=== PATIENT | female | born 1985 | race Caucasian/White ===

== ENCOUNTER 2020-09-08 09:40 | Outpatient (REF) | payer OTHER, SELFPAY ==
[2020-09-08 14:00] LABS: CT PCR NOT DETECTED (Not Detect.); NG PCR NOT DETECTED (Not Detect.)
[2020-09-09 09:06] LABS: BV Int Neg Control Negative (Negative); BV Int Pos Control Positive (Positive)
[2020-09-11 03:21] LABS: HPV mRNA E6/E7 rflx Not Detected (Not Detected)
== END 2020-09-08 09:41 | disposition home or self-care (01) ==
LOC: HO.LAB 09:40
PROVIDERS: Visit Provider Advanced Practice Midwife
DX: Z01.419 Encounter for gynecological examination (general) (routine) without abnormal findings (principal); K64.9 Unspecified hemorrhoids; Z87.891 Personal history of nicotine dependence; Z20.2 Contact with and (suspected) exposure to infections with a predominantly sexual mode of transmission
CPT/HCPCS: 36415; 87480; 87491; 87510; 87591; 87624; 87660; 88142

== ENCOUNTER 2020-09-15 13:31 | Emergency (ER) | payer OTHER, SELFPAY ==
--- NOTE | ~2020-09-15 | XR_ITS ---
EXAMINATION: XR CHEST CLINICAL INFORMATION: Pleuritic chest pain. COMPARISON: Chest 05/19/2019 TECHNIQUE: Frontal view of the chest was obtained. FINDINGS: No significant abnormality is noted involving the heart, lungs, mediastinum, bony thorax or soft tissues. XR/XR chest 1V IMPRESSION: Unremarkable chest exam
[2020-09-15 14:19] VITALS: BP 121/79; PULSE 100; RESP 18; TEMP 37.9; O2SAT 100; BMI 25.0
--- NOTE | 2020-09-15 14:27 | ECG_ITS ---
Test Reason : CHEST PRESSURE Blood Pressure : / mmHG Vent. Rate : 098 BPM Atrial Rate : 098 BPM P-R Int : 132 ms QRS Dur : 082 ms QT Int : 342 ms P-R-T Axes : 074 027 047 degrees QTc Int : 436 ms Normal sinus rhythm Possible Left atrial enlargement Nonspecific T wave abnormality Abnormal ECG When compared to the previous EKG of Nonspecific T wave changes present Referred By: Roman Black Electronically Signed By:Juan Francisco Ferraro
--- NOTE | 2020-09-15 15:13 | ED_ITS ---
HPI - General Adult General Chief complaint: General Medical Stated complaint: HEAVY CHEST Time Seen by Provider: 09/15/20 14:19 Source: patient and police Mode of arrival: ambulatory History of Present Illness HPI narrative: Patient presents to the ED for cough, chills, bodyaches, headache and chest pain on inspiration. Patient is unaware of any covid exposure. Related Data Previous Rx's Medication Instructions Recorded vitamin with calcium 1 tab PO DAILY #30 tab 09/08/20 no.72-iron 27 mg-folic acid 1 mg tablet Allergies Allergy/AdvReac Type Severity Reaction Status Date / Time No Known Allergies Allergy Unknown NONE Verified 09/08/20 10:00 Review of Systems Review of Systems: Yes all other systems are reviewed and are negative Constitutional: Constitutional: Reports as per HPI, Reports no additional constitutional complaints, Reports body ache(s), Reports chills, Reports fatigue and Reports headache(s) Eyes: Eyes: Reports as per HPI and Reports no additional eye complaints ENT: Reports system reviewed and no additional complaints, except as documented and Reports headache(s) Cardiovascular: Cardiovascular: Reports as per HPI, Reports no additional cardiovascular complaints, Reports chest pain and Reports dyspnea Respiratory: Respiratory: Reports as per HPI, Reports no additional respiratory complaints, Reports pain on inspiration and Reports dyspnea Gastrointestinal: Gastrointestinal: Reports as per HPI and Reports no a dditional gastrointestinal complaints Musculoskeletal: Musculoskeletal: Reports no additional musculoskeletal complaints and Reports as per HPI Neurologic: Reports system reviewed and no additional complaints, except as documented, Reports as per HPI and Reports headache(s) Psychiatric: Psychiatric: Reports no additional psychiatric complaints and Reports as per HPI Endocrine: Endocrine: Reports fatigue PMFSH Past Medical History Surgical History Hx of section Family History Family History Maternal Grandmother Ovarian cancer Social History Social History Alcohol intake: never Smoking Status: Former smoker Substance Use Type: Marijuana Advance Directives: No Advance Directives Information Provided: No Physical Exam Vital Signs: Vital Signs: Last Vital Signs Temp 100.3 F 09/15/20 14:19 Pulse 100 09/15/20 14:19 Resp 18 09/15/20 14:19 BP 121/79 03/31/21 14:19 Pulse Ox 100 09/15/20 14:19 Body Mass Index 25.0 Const: General: cooperative, healthy appearing, comfortable, well developed, alert, awake and Physically active Orientation/consciousness: patient oriented x3 HENMT: Head: Yes normal to inspection, Yes No palpable skull fracture present, Yes normocephalic and No atraumatic Eyes: General: appearance normal, both eyes and all related structures Neck: Neck: Yes normal visual inspection, Yes full ROM, Yes no lymphadenopathy, Yes no meningeal signs, Yes trachea midline, Yes supple and No tender Chest: Chest palpation & inspection: normal inspection of the chest and normal palpation of entire chest wall Resp: Effort & Inspection: normal respiratory effort and able to speak in complete sentences Auscultation: clear to auscultation bilaterally Cardio: Jugular venous distension: no JVD Heart sounds: S1 normal heart sound present and S2 normal heart sound present GI: Inspection: Yes normal to inspection and No abdominal wall ecchymosis Palpation (GI): Soft to palpation, not firm, nontender, no guarding and not rigid : General: No CVA tenderness and Yes no CVA tenderness Back/Spine/Pelvis: Back: no CVA tenderness, No CVA tenderness and No back tenderness Skin: General skin exam: no rashes or lesions noted and elasticity normal Neuro: General: patient oriented x3, no meningeal signs and CN's II-XI intact bilaterally Cranial nerves: Yes CN's II-XII intact bilaterally Extrem: Other: Lower extremities negative for any swelling, pitting edema, redness or calf tenderness. Course Course Course Narrative: Patient will have cardiac evaluation and covid workup. Reevaluation(s) Reevaluation #1: Patient's EKG negative for STEMI. Troponi negative. Chest xray negative for pneumonia? Patient is sleeping comfortably in the bed. D-dimer negative. Perc socre 1. Awaiting for covid results. ViraL syndrome is Diagnosis. Case signed out [employer] [facility] to follow up covid swab Medical Decision Making [facility] Narrative Medical decision making narrative: Viral syndrome. Lab Data Result diagrams: 09/15/20 16:50 09/15/20 16:50 Labs: Lab Results 09/15/20 09/15/20 09/15/20 Range/Units 16:50 16:50 16:50 WBC 3.3 L (4.8-10.8) X10*3/uL RBC 3.82 L (4.20-5.50) X10*6/uL Hgb 12.4 (12.0-16.0) g/dl Hct 36.6 L (37-47) % MCV 95.8 (80-98) fL MCH 32.5 (27.0-33.0) pg MCHC 33.9 (31.0-35.0) g/dl RDW 12.2 (11.0-16.0) % Plt Count 305 (160-400) X10*3/uL MPV 9.0 L (9.4-12.3) fL Immature Gran % (Auto) 0.3 (0.0-0.4) % Neut % (Auto) 49.0 (45-73) % Lymph % (Auto) 33.4 (20-40) % [place] % (Auto) 16.7 H (2-11) % Eos % (Auto) 0.3 (0-4) % Baso % (Auto) 0.3 (0-2) % Lymph # (Auto) 1.1 L (1.2-4.9) X10*3/uL [place] # (Auto) 0.6 (0.1-1.2) X10*3/uL Eos # (Auto) 0.0 (0.0-0.4) X10*3/uL Baso # (Auto) 0.0 (0.0-0.2) X10*3/uL Abs Immat Gran (auto) 0.01 (0.00-0.03) X10*3/uL Absolute Neuts (auto) 1.6 L (2.0-8.3) X10*3/uL Absolute Nucleated RBC 0.000 (0.0-0.012) X10*3/uL Nucleated RBC % (auto) 0.0 (0.0-0.2) /100WBC PT 12.9 (10.8-13.0) SEC INR 1.1 (0.9-1.1) APTT 30.2 (24.1-38.0) SEC D-Dimer < 200 NG/ML Sodium 137 (135-145) mmol/L Potassium 3.5 (3.3-5.1) mmol/L Chloride 101 (96-108) mmol/L Carbon Dioxide 23 (22-29) mmol/L Anion Gap 17 (12-20) BUN 12 (9-16) mg/dL Creatinine 0.73 (0.5-1.4) mg/dL Estim Creat Clear Calc 94.1 Estimated GFR > 60 Random Glucose 80 (60-115) mg/dL Calcium 8.8 (8.4-10.2) mg/dL Total Bilirubin 0.3 (0.0-1.0) mg/dL AST 25 (5-31) U/L ALT 23 (0-31) U/L Alkaline Phosphatase 64 (39-117) U/L Troponin I High Sens (<3.5-17.0) ng/L Total Protein 7.5 (6.5-8.0) g/dL Albumin 4.2 (3.5-5.0) g/dL Beta HCG, Quant mIU/mL 09/15/20 09/15/20 Range/Units 16:50 16:50 WBC (4.8-10.8) X10*3/uL RBC (4.20-5.50) X10*6/uL Hgb (12.0-16.0) g/dl Hct (37-47) % MCV (80-98) fL MCH (27.0-33.0) pg MCHC (31.0-35.0) g/dl RDW (11.0-16.0) % Plt Count (160-400) X10*3/uL MPV (9.4-12.3) fL Immature Gran % (Auto) (0.0-0.4) % Neut % (Auto) (45-73) % Lymph % (Auto) (20-40) % [place] % (Auto) (2-11) % Eos % (Auto) (0-4) % Baso % (Auto) (0-2) % Lymph # (Auto) (1.2-4.9) X10*3/uL [place] # (Auto) (0.1-1.2) X10*3/uL Eos # (Auto) (0.0-0.4) X10*3/uL Baso # (Auto) (0.0-0.2) X10*3/uL Abs Immat Gran (auto) (0.00-0.03) X10*3/uL Absolute Neuts (auto) (2.0-8.3) X10*3/uL Absolute Nucleated RBC (0.0-0.012) X10*3/uL Nucleated RBC % (auto) (0.0-0.2) /100WBC PT (10.8-13.0) SEC INR (0.9-1.1) APTT (24.1-38.0) SEC D-Dimer NG/ML Sodium (135-145) mmol/L Potassium (3.3-5.1) mmol/L Chloride (96-108) mmol/L Carbon Dioxide (22-29) mmol/L Anion Gap (12-20) BUN (9-16) mg/dL Creatinine (0.5-1.4) mg/dL Estim Creat Clear Calc Estimated GFR Random Glucose (60-115) mg/dL Calcium (8.4-10.2) mg/dL Total Bilirubin (0.0-1.0) mg/dL AST (5-31) U/L ALT (0-31) U/L Alkaline Phosphatase (39-117) U/L Troponin I High Sens 3.5 (<3.5-17.0) ng/L Total Protein (6.5-8.0) g/dL Albumin (3.5-5.0) g/dL Beta HCG, Quant < 2 mIU/mL ECG Data Interpretation: Normal Sinus rhythm. Vent rate 98. CA interval 132. QRS 82. QTC 436. Discharge Plan Discharge Prescriptions: No Action Vitamin Plus Low Iron 27 mg iron- 1 mg tablet 1 tab PO DAILY Qty: 30 RF: 11
[2020-09-15] MEDS: 0.9 % Sodium Chloride 1,000 ML 999 ML IV (17:06)
[2020-09-15] MEDS: Acetaminophen 325 MG TABLET 650 MG PO (17:06)
[2020-09-15 17:07] LABS: MANUAL DIFF FLAG NO
[2020-09-15 17:10] LABS: Basophils Percent Auto 0.3 % (0-2); Eosinophils Percent Auto 0.3 % (0-4); Hematocrit 36.6 % (37-47); Hemoglobin 12.4 g/dl (12.0-16.0); Imm Gran Abs Auto 0.01 X10*3/uL (0.00-0.03); Imm Gran Pct Auto 0.3 % (0.0-0.4); Lymphocytes Absolute Auto 1.1 X10*3/uL (1.2-4.9); Lymphocytes Percent Auto 33.4 % (20-40); Mean Corpuscular HGB Conc 33.9 g/dl (31.0-35.0); Mean Corpuscular Hemoglobin 32.5 pg (27.0-33.0); Mean Corpuscular Volume 95.8 fL (80-98); Monocytes Absolute Auto 0.6 X10*3/uL (0.1-1.2); Monocytes Percent Auto 16.7 % (2-11); Neutrophils Absolute Auto 1.6 X10*3/uL (2.0-8.3); Platelet Count 305 X10*3/uL (160-400); Red Blood Count 3.82 X10*6/uL (4.20-5.50); Red Cell Distribution Width 12.2 % (11.0-16.0); White Blood Count 3.3 X10*3/uL (4.8-10.8)
[2020-09-15 17:20] LABS: INTERNATIONAL NORM RATIO 1.1 (0.9-1.1); Prothrombin Time 12.9 SEC (10.8-13.0)
[2020-09-15 17:22] LABS: Partial Thromboplastin Time 30.2 SEC (24.1-38.0)
[2020-09-15 17:27] LABS: D Dimer < 200 NG/ML
[2020-09-15 17:34] LABS: Alanine Aminotransferase 23 U/L (0-31); Albumin Level 4.2 g/dL (3.5-5.0); Alkaline Phosphatase 64 U/L (39-117); Anion Gap 17 (12-20); Aspartate Amino Transferase 25 U/L (5-31); Bilirubin Total 0.3 mg/dL (0.0-1.0); Blood Urea Nitrogen 12 mg/dL (9-16); Calcium 8.8 mg/dL (8.4-10.2); Carbon Dioxide 23 mmol/L (22-29); Chloride 101 mmol/L (96-108); Creatinine Clr Calc Pharmacy 94.1; Estimated Glomerular Filt Rate > 60; Glucose Random 80 mg/dL (60-115); Potassium 3.5 mmol/L (3.3-5.1); Sodium 137 mmol/L (135-145); Total Protein 7.5 g/dL (6.5-8.0)
[2020-09-15 17:38] LABS: Troponin-I High Sensitivity 3.5 ng/L (<3.5-17.0)
[2020-09-15 17:42] LABS: HCG Quantitative < 2 mIU/mL
[2020-09-15 19:20] LABS: Influenza A PCR NEGATIVE (Negative); Influenza B PCR NEGATIVE (Negative); Resp Syncy Virus RNA Qual PCR NEGATIVE (Negative); SARS COV2 PCR INHOUSE POSITIVE (Negative)
== END 2020-09-15 19:45 | disposition home or self-care (01) ==
PROVIDERS: Physician Assistant; Emergency Provider Emergency Medicine Emergency Medical Services
DX: U07.1 COVID-19 (principal); F12.90 Cannabis use, unspecified, uncomplicated
CPT/HCPCS: 0241U; 36415; 71045; 80053; 84484; 84702; 85025; 85379; 85610; 85730; 93005; 96360; 99283; 99284

== ENCOUNTER 2020-12-07 06:39 | Emergency (ER) | payer MEDICAID, SELFPAY ==
[2020-12-07 06:45] VITALS: BP 128/91; PULSE 96; RESP 20; TEMP 36.4; O2SAT 97; BMI 25.0
[2020-12-07 08:01] LABS: MANUAL DIFF FLAG NO
[2020-12-07 08:04] LABS: Basophils Percent Auto 0.5 % (0-2); Eosinophils Absolute Auto 0.2 X10*3/uL (0.0-0.4); Eosinophils Percent Auto 3.6 % (0-4); Hematocrit 37.6 % (37-47); Hemoglobin 12.9 g/dl (12.0-16.0); Imm Gran Abs Auto 0.02 X10*3/uL (0.00-0.03); Imm Gran Pct Auto 0.3 % (0.0-0.4); Lymphocytes Absolute Auto 0.8 X10*3/uL (1.2-4.9); Lymphocytes Percent Auto 12.3 % (20-40); Mean Corpuscular HGB Conc 34.3 g/dl (31.0-35.0); Mean Corpuscular Hemoglobin 32.7 pg (27.0-33.0); Mean Corpuscular Volume 95.4 fL (80-98); Mean Platelet Volume 9.1 fL (9.4-12.3); Monocytes Absolute Auto 0.5 X10*3/uL (0.1-1.2); Monocytes Percent Auto 7.3 % (2-11); Neutrophils Absolute Auto 4.8 X10*3/uL (2.0-8.3); Platelet Count 317 X10*3/uL (160-400); Red Blood Count 3.94 X10*6/uL (4.20-5.50); Red Cell Distribution Width 12.4 % (11.0-16.0); White Blood Count 6.3 X10*3/uL (4.8-10.8)
[2020-12-07 08:04] LABS: Glucose Urine UA NEG (NEG); Leukocyte Esterase Urine NEG (NEG); Nitrite Urine NEG (NEG); Specific Gravity - Urine 1.025 (1.005-1.025); Urine Blood 3+ (NEG); Urine Ketones 15 MG/DL (NEG); Urine Protein 1+ MG/DL (NEG-TRACE)
[2020-12-07 08:12] LABS: Appearance Urine CLOUDY; Color Urine DARK YELLOW
[2020-12-07 08:15] LABS: Bacteria Urine TRACE /LPF; Mucus Urine 2+ /LPF; RBC Urine 30-49 /HPF (0); Squamous Epithelial Cell Urine 4+ /LPF; WBC Urine 0-2 /HPF (0-4)
[2020-12-07 08:28] LABS: Anion Gap 13 (12-20); Blood Urea Nitrogen 9 mg/dL (9-16); Calcium 9.4 mg/dL (8.4-10.2); Carbon Dioxide 23 mmol/L (22-29); Chloride 104 mmol/L (96-108); Estimated Glomerular Filt Rate > 60; Glucose Random 101 mg/dL (60-115); Potassium 3.6 mmol/L (3.3-5.1); Sodium 136 mmol/L (135-145)
[2020-12-07 09:11] VITALS: BP 145/96; PULSE 90; RESP 16; TEMP 37.1; O2SAT 100
[2020-12-07] MEDS: ondansetron HCL 4 MG/2 ML VIAL IVPUSH (09:29)
[2020-12-07] MEDS: Acetaminophen 325 MG TABLET 975 MG PO (09:29)
[2020-12-07] MEDS: 0.9 % Sodium Chloride 1,000 ML 999 ML IVCONT (09:29)
[2020-12-07 09:32] LABS: UPreg QC Valid YES; Urine Pregnancy NEGATIVE (NEGATIVE)
--- NOTE | 2020-12-07 09:49 | ED_ITS ---
HPI - Abdominal Pain General Chief Complaint: Abdominal Pain Stated Complaint: multiple complaints Time Seen by Provider: 12/07/20 09:01 Source: patient Mode of arrival: ambulatory Limitations: no limitations History of Present Illness HPI narrative: 35 y/o female with history of COVID-19 in August 2020 presents to the ER with headache, runny nose, scratchy throat & myalgias for the last 3 days. Yesterday she started having nausea and vomiting. She generally feels unwell. She reports 3/10 abdominal pain when she vomits and when she touches her abdomen. She denies any sick contact, no one at home with similar complaints. She had persistent vomiting this morning so she came into the ER for further evaluation. She denies chance of . No urinary symptoms. Due for her menses now. MD elicited complaint: abdominal pain and other (N/V) Pertinent past history: none Onset (ago): day(s) (3) Pain Consistency: intermittent Location: diffuse Severity: mild Pain scale (0-10): 3 Quality: aching Radiation: none Exacerbating factors: vomiting Relieving factors: nothing Associated symptoms: nausea, vomiting and chills Related Data Previous Rx's Medication Instructions Recorded vitamin with calcium 1 tab PO DAILY #30 tab 09/08/20 no.72-iron 27 mg-folic acid 1 mg tablet ondansetron 4 mg PO Q8H PRN #7 tab 12/07/20 Allergies Allergy/AdvReac Type Severity Reaction Status Date / Time No Known Allergies Allergy Unknown NONE Verified 09/08/20 10:00 Review of Systems Review of Systems Constitutional: No Fever, No Chills ENT/Mouth: No sore throat, No Rhinorrhea, No Swallowing Difficulty Eyes: No Eye Pain, No Swelling, No Redness Cardiovascular: No Chest Pain, No SOB, No Orthopnea, No Edema Respiratory: + Cough, No Sputum, No Wheezing, No dyspnea Gastrointestinal: + Nausea, + Vomiting, No Diarrhea, + abdominal Pain, No Hematochezia, No Melena Genitourinary: No Dysuria, No Urinary Frequency, No Hematuria Musculoskeletal: + joint pain, + Myalgias Skin: No Skin Lesions, No rash Neuro: + Weakness, No Numbness, No Dizziness, + Headache Psych: No Anxiety/Panic, No Depression Heme/Lymph: No Bruising, No Lymphadenopathy Endocrine: No Polyuria, No Polydipsia Physical Exam Vital Signs: Vital Signs: Last Vital Signs Temp 98.7 F 12/07/20 09:11 Pulse 66 12/07/20 13:26 Resp 16 12/07/20 10:00 BP 116/70 12/07/20 13:26 Pulse Ox 100 12/07/20 09:11 Body Mass Index 25.0 Appearance: Alert. Oriented X3. No acute distress. Eyes: Pupils equal, round and reactive to light. ENT: Pharynx normal. Neck: Normal inspection. Neck supple. CVS: Normal heart rate and rhythm. Pulses normal. Respiratory: No respiratory distress. Breath sounds normal. Abdomen: Soft with mild diffuse tenderness to deep palpation, no rebound or guarding. +BS x4 Skin: Skin warm and dry. Normal skin color. Normal skin turgor. No rashes. Extremities: No lower extremity edema. Neuro: Oriented X 3. No motor deficit. No sensory deficit. Course Course Course Narrative: 35 y/o female with history of COVID a few months ago presents with headache, N/V, myalgias and generally feeling unwell for the last 3 days. Clinical presentation is consistent with probable viral syndrome. Will check basic lab workup, UA, Viral PCR and give IVF and Zofran. Main complaint at this time is headache. Reevaluation(s) Reevaluation #1: Labs are unremarkable. IV toradol ordered for headache long with benadryl and reglan for persistent nausea. She vomited Tylenol back up. Reevaluation #2: Patient feels much better after medication. She is stable for discharge home with antiemetic and follow up with her PCP. Patient agrees with plan. MDM - Abdominal Pain Lab Data Result diagrams: 12/07/20 07:49 12/07/20 07:49 Labs: Lab Results 12/07/20 12/07/20 12/07/20 Range/Units 07:49 07:49 07:54 WBC 6.3 (4.8-10.8) X10*3/uL RBC 3.94 L (4.20-5.50) X10*6/uL Hgb 12.9 (12.0-16.0) g/dl Hct 37.6 (37-47) % MCV 95.4 (80-98) fL MCH 32.7 (27.0-33.0) pg MCHC 34.3 (31.0-35.0) g/dl RDW 12.4 (11.0-16.0) % Plt Count 317 (160-400) X10*3/uL MPV 9.1 L (9.4-12.3) fL Immature Gran % (Auto) 0.3 (0.0-0.4) % Neut % (Auto) 76.0 H (45-73) % Lymph % (Auto) 12.3 L (20-40) % [place] % (Auto) 7.3 (2-11) % Eos % (Auto) 3.6 (0-4) % Baso % (Auto) 0.5 (0-2) % Lymph # (Auto) 0.8 L (1.2-4.9) X10*3/uL [place] # (Auto) 0.5 (0.1-1.2) X10*3/uL Eos # (Auto) 0.2 (0.0-0.4) X10*3/uL Baso # (Auto) 0.0 (0.0-0.2) X10*3/uL Abs Immat Gran (auto) 0.02 (0.00-0.03) X10*3/uL Absolute Neuts (auto) 4.8 (2.0-8.3) X10*3/uL Absolute Nucleated RBC 0.000 (0.0-0.012) X10*3/uL Nucleated RBC % (auto) 0.0 (0.0-0.2) /100WBC Sodium 136 (135-145) mmol/L Potassium 3.6 (3.3-5.1) mmol/L Chloride 104 (96-108) mmol/L Carbon Dioxide 23 (22-29) mmol/L Anion Gap 13 (12-20) BUN 9 (9-16) mg/dL Creatinine 0.79 (0.5-1.4) mg/dL Estim Creat Clear Calc 87.0 Estimated GFR > 60 Random Glucose 101 (60-115) mg/dL Calcium 9.4 D (8.4-10.2) mg/dL Urine Color DARK YELLOW Urine Appearance CLOUDY Urine pH 6.0 (5.0-8.0) Ur Specific [place] 1.025 (1.005-1.025) Urine Protein 1+ H (NEG-TRACE) MG/DL Urine Glucose (UA) NEG (NEG) MG/DL Urine Ketones 15 (NEG) MG/DL Urine Blood 3+ H (NEG) Urine Nitrite NEG (NEG) Ur Leukocyte Esterase NEG (NEG) Urine RBC 30-49 H (0) /HPF Urine WBC 0-2 (0-4) /HPF Ur Squamous Epith Cells 4+ /LPF Urine Bacteria TRACE /LPF Urine Mucus 2+ /LPF Urine Test (NEGATIVE) Coronavirus (PCR) (Negative) Influenza Type A (PCR) (Negative) Influenza Type B (PCR) (Negative) RSV RNA Qual (PCR) (Negative) 12/07/20 12/07/20 Range/Units 07:54 13:27 WBC (4.8-10.8) X10*3/uL RBC (4.20-5.50) X10*6/uL Hgb (12.0-16.0) g/dl Hct (37-47) % MCV (80-98) fL MCH (27.0-33.0) pg MCHC (31.0-35.0) g/dl RDW (11.0-16.0) % Plt Count (160-400) X10*3/uL MPV (9.4-12.3) fL Immature Gran % (Auto) (0.0-0.4) % Neut % (Auto) (45-73) % Lymph % (Auto) (20-40) % [place] % (Auto) (2-11) % Eos % (Auto) (0-4) % Baso % (Auto) (0-2) % Lymph # (Auto) (1.2-4.9) X10*3/uL [place] # (Auto) (0.1-1.2) X10*3/uL Eos # (Auto) (0.0-0.4) X10*3/uL Baso # (Auto) (0.0-0.2) X10*3/uL Abs Immat Gran (auto) (0.00-0.03) X10*3/uL Absolute Neuts (auto) (2.0-8.3) X10*3/uL Absolute Nucleated RBC (0.0-0.012) X10*3/uL Nucleated RBC % (auto) (0.0-0.2) /100WBC Sodium (135-145) mmol/L Potassium (3.3-5.1) mmol/L Chloride (96-108) mmol/L Carbon Dioxide (22-29) mmol/L Anion Gap (12-20) BUN (9-16) mg/dL Creatinine (0.5-1.4) mg/dL Estim Creat Clear Calc Estimated GFR Random Glucose (60-115) mg/dL Calcium (8.4-10.2) mg/dL Urine Color Urine Appearance Urine pH (5.0-8.0) Ur Specific [place] (1.005-1.025) Urine Protein (NEG-TRACE) MG/DL Urine Glucose (UA) (NEG) MG/DL Urine Ketones (NEG) MG/DL Urine Blood (NEG) Urine Nitrite (NEG) Ur Leukocyte Esterase (NEG) Urine RBC (0) /HPF Urine WBC (0-4) /HPF Ur Squamous Epith Cells /LPF Urine Bacteria /LPF Urine Mucus /LPF Urine Test NEGATIVE (NEGATIVE) Coronavirus (PCR) NEGATIVE (Negative) Influenza Type A (PCR) NEGATIVE (Negative) Influenza Type B (PCR) NEGATIVE (Negative) RSV RNA Qual (PCR) NEGATIVE (Negative) Discharge Plan Discharge Clinical Impression: Acute viral syndrome Patient Disposition: Home, Self-Care Instructions: Viral Syndrome (ED) Additional Instructions: Your lab workup today was normal. You were NEGATIVE for COVID, Flu and RSV. Your chest x-ray and oxygen levels were normal. Your symptoms are most likely due to another viral illness. Rest. Drink plenty of fluids. Take over the counter cold/flu medications as needed for your symptoms. Take Tylenol and/or Motrin as needed for fevers and body aches. Follow up with your doctor this week. If you have any worsening symptoms come back to the ER for further evaluation. Prescriptions: New ondansetron 4 mg tablet,disintegrating 4 mg PO Q8H PRN (Reason: nausea and vomiting) Qty: 7 RF: 0 No Action Vitamin Plus Low Iron 27 mg iron- 1 mg tablet 1 tab PO DAILY Qty: 30 RF: 11 Stand Alone Forms: Work/School Release PENDING SALE TO [facility] Past Medical History Attestation statement: The following information was validated with the patient. Surgical History Hx of section Family History Family History Maternal Grandmother Ovarian cancer Social History Social History Alcohol intake: never Patient Tobacco Use Status: Current everyday Tobacco user Use of substances other than those prescribed or required for medical reasons: Yes Substance Use Type: Marijuana Substance Use Frequency Other:: PT STATES THAT SHE HAS NOT SMOKED IN 3 DAYS. Advance Directives: No Advance Directives Information Provided: No Patient : No
[2020-12-07 10:00] VITALS: RESP 16
[2020-12-07] MEDS: diphenhydrAMINE HCL 50 MG/ML VIAL 25 MG IVPUSH (11:44)
[2020-12-07] MEDS: Metoclopramide HCl 10 MG/2 ML VIAL IVPUSH (11:44)
[2020-12-07] MEDS: Ketorolac Tromethamine 30 MG/ML VIAL IVPUSH (11:44)
[2020-12-07 13:26] VITALS: BP 116/70; PULSE 66
[2020-12-07 14:30] LABS: Influenza A PCR NEGATIVE (Negative); Influenza B PCR NEGATIVE (Negative); Resp Syncy Virus RNA Qual PCR NEGATIVE (Negative); SARS COV2 PCR INHOUSE NEGATIVE (Negative)
== END 2020-12-07 14:55 | disposition home or self-care (01) ==
PROVIDERS: Physician Assistant; Emergency Provider Emergency Medicine Emergency Medical Services; PCP Family Medicine
DX: B34.9 Viral infection, unspecified (principal); Z20.822 Contact with and (suspected) exposure to COVID-19; Z86.16 Personal history of COVID-19
CPT/HCPCS: 0241U; 36415; 80048; 81001; 81025; 85025; 96361; 96374; 96375; 99284; 99285; J1200; J1885; J2405; J2765

== ENCOUNTER 2021-04-01 14:06 | Emergency (ER) | payer MEDICAID, SELFPAY ==
--- NOTE | ~2021-04-01 | XR_ITS ---
EXAMINATION: XR CHEST CLINICAL INFORMATION: Chest pain. COMPARISON: Chest radiograph dated from 09/15/2020. TECHNIQUE: AP view of the chest was obtained. FINDINGS: No significant abnormality is noted involving the heart, lungs, mediastinum, bony thorax or soft tissues. XR/XR chest 1V IMPRESSION: No acute cardiopulmonary findings.
--- NOTE | ~2021-04-01 | US_ITS ---
EXAMINATION: US OBSTETRICAL ULTRASOUND CLINICAL INFORMATION: Last menstrual period on 02/27/2021. Vaginal bleeding. COMPARISON: Obstetric pelvic ultrasound dated from 07/28/2015. LMP: 02/27/2021. Gestational age by maternal dates is 4 weeks and 5 days. Estimated date of delivery by maternal dates is 12/04/2021. TECHNIQUE: Transvaginal and transabdominal pelvic ultrasound was obtained. FINDINGS: There is a single intrauterine gestational sac with without a visible yolk sac nor embryo. The gestational sac measures 0.4 x 0.4 x 0.2 cm corresponding to a gestational age of 4 weeks and 6 days. There is no significant subchorionic hemorrhage or hematoma. MATERNAL ADNEXA: The ovaries are normal in size and morphology. The right maternal ovary measures 2.4 x 2.2 x 2.2 cm. The left maternal ovary measures 1.7 x 1.7 x 1.0 cm. There is flow with color Doppler in both ovaries. There is no significant maternal adnexal mass. No maternal pelvic ascites. US/US OB pelvic and transvaginal IMPRESSION: Single intrauterine gestational sac with ultrasound gestational age of 4 weeks and 6 days. It is too early in the to visualize a yolk sac or pole; and a very short-term follow-up ultrasound is recommended to ensure viability of the . No acute sonographic abnormalities.
[2021-04-01 14:24] VITALS: BP 141/86; PULSE 88; RESP 18; TEMP 36.6; O2SAT 100; BMI 24.7
--- NOTE | 2021-04-01 14:28 | ECG_ITS ---
Test Reason : CHEST PAIN Blood Pressure : / mmHG Vent. Rate : 080 BPM Atrial Rate : 080 BPM P-R Int : 126 ms QRS Dur : 084 ms QT Int : 378 ms P-R-T Axes : 070 034 033 degrees QTc Int : 435 ms Normal sinus rhythm with sinus arrhythmia RSR' or QR pattern in V1 suggests right ventricular conduction delay Otherwise normal ECG No significant changes seen Referred By: Generic ED Physician Electronically Signed By:MAGDA LINDSEY MD
[2021-04-01 14:41] LABS: Appearance Urine CLEAR; Color Urine YELLOW; Glucose Urine UA NEG (NEG); Leukocyte Esterase Urine NEG (NEG); Nitrite Urine NEG (NEG); Specific Gravity - Urine 1.025 (1.005-1.025); UACC Culture Trigger NO; Urine Blood 1+ (NEG); Urine Ketones NEG (NEG); Urine Protein NEG (NEG-TRACE)
[2021-04-01 14:42] LABS: UPreg QC Valid YES; Urine Pregnancy POSITIVE (NEGATIVE)
[2021-04-01 14:51] LABS: Mucus Urine TRACE /LPF; Squamous Epithelial Cell Urine 3+ /LPF; WBC Urine 0-2 /HPF (0-4)
[2021-04-01 15:27] LABS: MANUAL DIFF FLAG NO
[2021-04-01 15:32] LABS: Basophils Percent Auto 0.5 % (0-2); Eosinophils Absolute Auto 0.1 X10*3/uL (0.0-0.4); Eosinophils Percent Auto 2.3 % (0-4); Hematocrit 32.8 % (37-47); Hemoglobin 10.9 g/dl (12.0-16.0); Imm Gran Abs Auto 0.02 X10*3/uL (0.00-0.03); Imm Gran Pct Auto 0.3 % (0.0-0.4); Lymphocytes Absolute Auto 1.7 X10*3/uL (1.2-4.9); Lymphocytes Percent Auto 28.5 % (20-40); Mean Corpuscular HGB Conc 33.2 g/dl (31.0-35.0); Mean Corpuscular Hemoglobin 32.2 pg (27.0-33.0); Mean Platelet Volume 8.8 fL (9.4-12.3); Monocytes Absolute Auto 0.5 X10*3/uL (0.1-1.2); Monocytes Percent Auto 7.8 % (2-11); Neutrophils Absolute Auto 3.7 X10*3/uL (2.0-8.3); Neutrophils Percent Auto 60.6 % (45-73); Platelet Count 341 X10*3/uL (160-400); Red Blood Count 3.38 X10*6/uL (4.20-5.50); Red Cell Distribution Width 12.5 % (11.0-16.0)
[2021-04-01 15:41] LABS: Anion Gap 10 (12-20); Blood Urea Nitrogen 12 mg/dL (9-16); Calcium 9.3 mg/dL (8.4-10.2); Carbon Dioxide 25 mmol/L (22-29); Chloride 109 mmol/L (96-108); Creatinine Clr Calc Pharmacy 88.9; Estimated Glomerular Filt Rate > 60; Glucose Random 91 mg/dL (60-115); Sodium 140 mmol/L (135-145)
[2021-04-01 15:47] LABS: Troponin-I High Sensitivity < 3.5 ng/L (<3.5-17.0)
--- NOTE | 2021-04-01 19:15 | ED_ITS ---
HPI - Chest Pain General Chief Complaint: Chest Pain Stated Complaint: Rectal bleeding Time Seen by Provider: 04/01/21 18:54 Source: patient Mode of arrival: ambulatory Limitations: no limitations History of Present Illness HPI narrative: 56-year-old female with no known medical history presents to the emergency department with rectal bleeding, and chest pain x1 week. She states that she has been sitting on the toilet, and a stream of blood fills up the toilet seat. She also states that at times when she wipes she notices blood clots. She does have a history of external hemorrhoids, however she states that it has never been this bad. She also reports substernal chest pain that radiates into the left shoulder, and into the left side of the neck. She reports 1 episode of bloody diarrhea today. She also reports 1 episode of vaginal bleeding on Sunday which has since resolved and not recurred. She s tates she does not know if she is , she states she is not trying to get because she has 3 other kids at home. She denies shortness of breath, weakness, fevers, chills, abdominal pain, changes in urination. Last menstrual period was February 27. No past history of any bleeding disorders. Patient denies recent rectal intercourse or foreign bodies to the rectum. Related Data Previous Rx's Medication Instructions Recorded vitamin with calcium 1 tab PO DAILY #30 tab 09/08/20 no.72-iron 27 mg-folic acid 1 mg tablet ( Vitamins Plus Low Iron) ondansetron 4 mg disintegrating 4 mg PO Q8H PRN #7 tab 12/07/20 tablet vitamin with calcium 1 tab PO DAILY #60 tab 04/01/21 no.72-iron 27 mg-folic acid 1 mg tablet ( Vitamins Plus Low Iron) Allergies Allergy/AdvReac Type Severity Reaction Status Date / Time No Known Allergies Allergy Unknown NONE Verified 04/01/21 14:24 Review of Systems Review of Systems: Constitutional : No Weight loss, No Fever, No Chills, No Night Sweats, No Fatigue, No Malaise ENT/Mouth : No Hearing loss, No Ear Pain, No Nasal Congestion, No Sinus Pain, No Hoarseness, No sore throat, No Rhinorrhea, No Swallowing Difficulty Eyes: No Eye Pain, No Swelling, No Redness, No Foreign Body, No Discharge, No Vision Changes Cardiovascular : Positive chest pain, No SOB, No Dyspnea on Exertion, No Orthopnea, No Edema, No Palpitations Respiratory : No Cough, No Sputum, No Wheezing, No Smoke Exposure, No Dyspnea Gastrointestinal : Positive rectal bleeding, positive intermittent diarrhea, No Nausea, No Vomiting, No Constipation, No abdominal Pain, No Hematochezia, No Melena Genitourinary : no irregular bleeding, No Dysuria, No Urinary Frequency, No Hematuria, No Urinary Incontinence, No Urgency, No Flank Pain, No Urinary Flow Changes, No Hesitancy Musculoskeletal : No joint pain, No Myalgias, No Joint Swelling Skin : No Skin Lesions, No rash Neuro : No Weakness, No Numbness, No Paresthesias, No Loss of Consciousness, No Dizziness, No Headache Psych : No Anxiety/Panic, No Depression, No SI/HI/AH/VH, No Social Issues, Heme/Lymph: No Bruising, No Bleeding,No Lymphadenopathy Endocrine : No Polyuria, No Polydipsia, No Temperature Intolerance Yes all other systems are reviewed and are negative [facility] Past Medical History Attestation statement: The following information was validated with the patient. Surgical History Hx of section Family History Family History Maternal Grandmother Ovarian cancer Social History Social History Alcohol intake: never Patient Tobacco Use Status: Current everyday Tobacco user Substance Use Type: Marijuana Advance Directives: No Physical Exam Vital Signs: Vital Signs: Last Vital Signs Temp 98.4 F 04/01/21 21:45 Pulse 84 04/01/21 21:45 Resp 18 04/01/21 21:45 BP 122/60 04/01/21 21:45 Pulse Ox 96 04/01/21 21:45 Body Mass Index 24.7 vital signs have been reviewed as normal and appeared to be correct. Blood pressure hypertensive 141/86 heart rate normal. Respiration rate normal. Temperature normal. Oxygen saturation normal. Appearance: Alert. Oriented X3. No acute distress. Head: Normal external exam. Normocephalic. Atraumatic. Eyes: PERRLA. EOMI. Conjunctiva and sclera normal. Eyelids normal. ENT: Pharynx normal. Uvula midline. Moist mucous membranes. No trismus noted. No drooling noted. No muffled voice noted. Neck: Normal inspection. Neck supple. FROM. No adenopathy. Thyroid Normal. No meningeal signs. No neck mass noted. CVS: Normal heart rate and rhythm. Heart sound normal. No murmurs noted. Pulses normal throughout. Respiratory: No respiratory distress. Painless inspiration. Breath sounds normal. No wheezes/rales/rhonchi noted. Chest nontender. No accessory muscle usage noted or decreased air movement noted. Abdomen: Soft and nontender. Bowel sounds normal in all 4 quadrants. No distention noted. No organomegaly noted. No visible injury noted. Gravid uterus. : Supervised by [facility] [place] Normal external appearance of urethra. No lesions/lacerations or discharge or tenderness noted. Speculum exam normal appearance/palpation of vagina normal. Thin white nonodorous discharge noted. Otherwise no other abnormal vaginal discharge noted. Otherwise no vaginal erythema. No foreign bodies noted. No vaginal laceration/lesions or active bleeding noted. No tissue present in vagina. No vaginal mass noted. No vaginal swelling noted. No vaginal tenderness noted. Normal appearance of cervix. Normal palpation of cervix. Cervical os is closed. No abnormal cervical discharge noted. No cervical lesion/mass. No Bartholin cyst noted. No cervical motion tenderness noted. Negative chandelier sign. Normal bimanual exam. Uterine size normal. Bladder normal to palpation. Uterine consistency normal. Normal cervical palpation. Uterine mobility normal. Uterine shape normal. Normal adnexa. Normal rectovaginal exam. : External hemorrhoids noted not actively bleeding or incarcerated at this time. Back: No CVA tenderness. Full range of motion noted. Skin: Skin warm and dry. Normal skin color. Normal skin turgor. No rashes/lesions/lacerations noted. Extremities: No lower extremity edema. No calf tenderness is noted. Extremities exhibit normal range of motion. Extremities nontender. Neuro: Oriented X 3. No motor deficit. No sensory deficit. Reflexes normal. Course Course Course Narrative: [id number] 56-year-old female with no known medical history presents to the emergency department with rectal bleeding, and chest pain x1 week. She states at her rectal bleeding fills up the toilet bowl. At times when she wipes she sees clots. Her chest pain starts in the center and radiates to her left arm, and left side of the neck. She also reports 1 episode of liquid diarrhea today. And she reports 1 episode of vaginal bleeding this past Sunday. Last menstrual period February 27. She is [id number]. Upon physical examination lungs are clear to auscultation, abdomen soft nontender slightly distended likely due to . No pallor is appreciated, no weakness. Neurologically intact. Rectal blood revealed marbella red blood per rectum. An external hemorrhoid is noted, nonbleeding and nonthrombosed non incarcerated. Patient had a urine in triage with a urine and she was positive for urine therefore Plan at this time is to obtain a type and screen, EKG, continuous cardiac monitoring, chest x-ray, CBC, BMP, troponin, serum quant, PTT, PT INR, COVID, US OB pelvic and transvaginal ultrasound. Reevaluation(s) Reevaluation #1: After labs revealed that patient is currently , she was given the option about whether not she wanted to get an x-ray, she states she would like to get the x-ray despite her getting exposed to radiation. Time: 19:00 Reevaluation #2: Labs show hemoglobin of 10.9, hematocrit 32.8 ( previous hemoglobin 12.9, hematocrit 37.6) no leukocytosis, no electrolyte abnormalities, urine shows 1+ blood, and 5- 9 urine rbc's, test positive. [facility] [id number]. Upon further questioning, patient did not want to become , she has 3 kids at home, has had 1 miscarriage. This was not a planned . She is not taking vitamins. US pending Time: 19:47 Reevaluation #3: - Occult stool blood card positive. Ultrasound shows an intrauterine gestational sac with a gestational age of 4 weeks and 6 days. Per the report, it is too soon to visualize a yolk sac or pole. They recommend prompt follow-up with OBGYN, to ensure viability of the . Based off of gestational age, it is too soon to obtain heart tones. A vaginal exam was done, which showed a closed cervix, no active bleeding in vagina or rectum, there was thin white vaginal discharge. Swabs have been obtained for chlamydia, gonorrhea, bacterial vaginosis, Trichomonas. -patient is Rh negative, since she is not having vaginal bleeding at this time there is no need to administer RhoGAM. - since at this time the patient is not actively bleeding from the vagina, or rectum there is no need for admission or further imaging at this time since the patient is . Although her H&H is lower than her baseline, this could be secondary to . will be discharged home with follow-up with GI and OBGYN, and she will be given vitamins with iron. She has been educated to return to the emergency department with new or worsening symptoms such as weakness, fatigue, changes in vision, chest pain, shortness of breath. She will be called if any of her pending labs are positive. MDM - Chest Pain Medical Records Data Attestation: I reviewed the patient's medical records. Lab Data Attestation: I reviewed the patient's lab results. Result diagrams: 04/01/21 15:23 04/01/21 15:23 Labs: Lab Results 04/01/21 04/01/21 04/01/21 Range/Units 14:34 14:35 15:23 WBC 6.0 (4.8-10.8) X10*3/uL RBC 3.38 L (4.20-5.50) X10*6/uL Hgb 10.9 L (12.0-16.0) g/dl Hct 32.8 L (37-47) % MCV 97.0 (80-98) fL MCH 32.2 (27.0-33.0) pg MCHC 33.2 (31.0-35.0) g/dl RDW 12.5 (11.0-16.0) % Plt Count 341 (160-400) X10*3/uL MPV 8.8 L (9.4-12.3) fL Immature Gran % (Auto) 0.3 (0.0-0.4) % Neut % (Auto) 60.6 (45-73) % Lymph % (Auto) 28.5 (20-40) % [place] % (Auto) 7.8 (2-11) % Eos % (Auto) 2.3 (0-4) % Baso % (Auto) 0.5 (0-2) % Lymph # (Auto) 1.7 (1.2-4.9) X10*3/uL [place] # (Auto) 0.5 (0.1-1.2) X10*3/uL Eos # (Auto) 0.1 (0.0-0.4) X10*3/uL Baso # (Auto) 0.0 (0.0-0.2) X10*3/uL Abs Immat Gran (auto) 0.02 (0.00-0.03) X10*3/uL Absolute Neuts (auto) 3.7 (2.0-8.3) X10*3/uL Absolute Nucleated RBC 0.000 (0.0-0.012) X10*3/uL Nucleated RBC % (auto) 0.0 (0.0-0.2) /100WBC PT (9.9-13.0) SEC INR (0.9-1.1) APTT (24.1-38.0) SEC Sodium (135-145) mmol/L Potassium (3.3-5.1) mmol/L Chloride (96-108) mmol/L Carbon Dioxide (22-29) mmol/L Anion Gap (12-20) BUN (9-16) mg/dL Creatinine (0.5-1.4) mg/dL Estim Creat Clear Calc Estimated GFR Random Glucose (60-115) mg/dL Calcium (8.4-10.2) mg/dL Troponin I High Sens (<3.5-17.0) ng/L Beta HCG, Quant mIU/mL Urine Color YELLOW Urine Appearance CLEAR Urine pH 6.0 (5.0-8.0) Ur Specific [place] 1.025 (1.005-1.025) Urine Protein NEG (NEG-TRACE) MG/DL Urine Glucose (UA) NEG (NEG) MG/DL Urine Ketones NEG (NEG) MG/DL Urine Blood 1+ H (NEG) Urine Nitrite NEG (NEG) Ur Leukocyte Esterase NEG (NEG) Urine RBC 5-9 H (0) /HPF Urine WBC 0-2 (0-4) /HPF Ur Squamous Epith Cells 3+ /LPF Urine Bacteria NONE /LPF Urine Mucus TRACE /LPF Urine Test POSITIVE H (NEGATIVE) Stool Occult Blood (NEGATIVE) COVID-19 (ALEJANDRO) (Negative) COVID-19 Clin Com Blood Type Antibody Screen 04/01/21 04/01/21 04/01/21 Range/Units 15:23 15:23 20:16 WBC (4.8-10.8) X10*3/uL RBC (4.20-5.50) X10*6/uL Hgb (12.0-16.0) g/dl Hct (37-47) % MCV (80-98) fL MCH (27.0-33.0) pg MCHC (31.0-35.0) g/dl RDW (11.0-16.0) % Plt Count (160-400) X10*3/uL MPV (9.4-12.3) fL Immature Gran % (Auto) (0.0-0.4) % Neut % (Auto) (45-73) % Lymph % (Auto) (20-40) % [place] % (Auto) (2-11) % Eos % (Auto) (0-4) % Baso % (Auto) (0-2) % Lymph # (Auto) (1.2-4.9) X10*3/uL [place] # (Auto) (0.1-1.2) X10*3/uL Eos # (Auto) (0.0-0.4) X10*3/uL Baso # (Auto) (0.0-0.2) X10*3/uL Abs Immat Gran (auto) (0.00-0.03) X10*3/uL Absolute Neuts (auto) (2.0-8.3) X10*3/uL Absolute Nucleated RBC (0.0-0.012) X10*3/uL Nucleated RBC % (auto) (0.0-0.2) /100WBC PT 11.1 (9.9-13.0) SEC INR 1.0 (0.9-1.1) APTT 29.7 (24.1-38.0) SEC Sodium 140 (135-145) mmol/L Potassium 4.0 (3.3-5.1) mmol/L Chloride 109 H (96-108) mmol/L Carbon Dioxide 25 (22-29) mmol/L Anion Gap 10 L (12-20) BUN 12 (9-16) mg/dL Creatinine 0.76 (0.5-1.4) mg/dL Estim Creat Clear Calc 88.9 Estimated GFR > 60 Random Glucose 91 (60-115) mg/dL Calcium 9.3 (8.4-10.2) mg/dL Troponin I High Sens < 3.5 (<3.5-17.0) ng/L Beta HCG, Quant 4324 mIU/mL Urine Color Urine Appearance Urine pH (5.0-8.0) Ur Specific [place] (1.005-1.025) Urine Protein (NEG-TRACE) MG/DL Urine Glucose (UA) (NEG) MG/DL Urine Ketones (NEG) MG/DL Urine Blood (NEG) Urine Nitrite (NEG) Ur Leukocyte Esterase (NEG) Urine RBC (0) /HPF Urine WBC (0-4) /HPF Ur Squamous Epith Cells /LPF Urine Bacteria /LPF Urine Mucus /LPF Urine Test (NEGATIVE) Stool Occult Blood (NEGATIVE) COVID-19 (ALEJANDRO) (Negative) COVID-19 Clin Com Blood Type Antibody Screen 04/01/21 04/01/21 04/01/21 Range/Units 20:16 20:40 20:42 WBC (4.8-10.8) X10*3/uL RBC (4.20-5.50) X10*6/uL Hgb (12.0-16.0) g/dl Hct (37-47) % MCV (80-98) fL MCH (27.0-33.0) pg MCHC (31.0-35.0) g/dl RDW (11.0-16.0) % Plt Count (160-400) X10*3/uL MPV (9.4-12.3) fL Immature Gran % (Auto) (0.0-0.4) % Neut % (Auto) (45-73) % Lymph % (Auto) (20-40) % [place] % (Auto) (2-11) % Eos % (Auto) (0-4) % Baso % (Auto) (0-2) % Lymph # (Auto) (1.2-4.9) X10*3/uL [place] # (Auto) (0.1-1.2) X10*3/uL Eos # (Auto) (0.0-0.4) X10*3/uL Baso # (Auto) (0.0-0.2) X10*3/uL Abs Immat Gran (auto) (0.00-0.03) X10*3/uL Absolute Neuts (auto) (2.0-8.3) X10*3/uL Absolute Nucleated RBC (0.0-0.012) X10*3/uL Nucleated RBC % (auto) (0.0-0.2) /100WBC PT (9.9-13.0) SEC INR (0.9-1.1) APTT (24.1-38.0) SEC Sodium (135-145) mmol/L Potassium (3.3-5.1) mmol/L Chloride (96-108) mmol/L Carbon Dioxide (22-29) mmol/L Anion Gap (12-20) BUN (9-16) mg/dL Creatinine (0.5-1.4) mg/dL Estim Creat Clear Calc Estimated GFR Random Glucose (60-115) mg/dL Calcium (8.4-10.2) mg/dL Troponin I High Sens (<3.5-17.0) ng/L Beta HCG, Quant mIU/mL Urine Color Urine Appearance Urine pH (5.0-8.0) Ur Specific [place] (1.005-1.025) Urine Protein (NEG-TRACE) MG/DL Urine Glucose (UA) (NEG) MG/DL Urine Ketones (NEG) MG/DL Urine Blood (NEG) Urine Nitrite (NEG) Ur Leukocyte Esterase (NEG) Urine RBC (0) /HPF Urine WBC (0-4) /HPF Ur Squamous Epith Cells /LPF Urine Bacteria /LPF Urine Mucus /LPF Urine Test (NEGATIVE) Stool Occult Blood POSITIVE (NEGATIVE) COVID-19 (ALEJANDRO) Negative (Negative) COVID-19 Clin Com See Note Blood Type O Positive Antibody Screen NEGATIVE Imaging Data Ob ultrasound: Attestation: I personally reviewed and interpreted this imaging study as follows: Radiologist's impression: FINDINGS: There is a single intrauterine gestational sac with without a visible yolk sac nor embryo. The gestational sac measures 0.4 x 0.4 x 0.2 cm corresponding to a gestational age of 4 weeks and 6 days. There is no significant subchorionic hemorrhage or hematoma. MATERNAL ADNEXA:? ? The ovaries are normal in size and morphology. The right maternal ovary measures 2.4 x 2.2 x 2.2 cm. The left maternal ovary measures 1.7 x 1.7 x 1.0 cm. There is flow with color Doppler in both ovaries. There is no significant maternal adnexal mass. No maternal pelvic ascites. US/US OB pelvic and transvaginal IMPRESSION: ? Single intrauterine gestational sac with ultrasound gestational age of 4 weeks and 6 days. It is too early in the to visualize a yolk sac or pole; and a very short-term follow-up ultrasound is recommended to ensure viability of the . ? No acute sonographic abnormalitie Discharge Plan Discharge Clinical Impression: Fecal occult blood test positive, Positive blood test, Intrauterine , External hemorrhoid Patient Disposition: Home, Self-Care Instructions: (ED), Rectal Bleeding (ED) Additional Instructions: Follow-up with gastroenterology and OBGYN. The ultrasound showed an intrauterine gestational sac with a gestational age of about 4 weeks and 5 days, however it is too soon to see a yolk sac or pole Take vitamins daily. Return to the emergency department with new or worsening symptoms Prescriptions: New Vitamin Plus Low Iron 27 mg iron- 1 mg tablet 1 tab PO DAILY Qty: 60 RF: 0 No Action ondansetron 4 mg tablet,disintegrating 4 mg PO Q8H PRN (Reason: nausea and vomiting) Qty: 7 RF: 0 Vitamin Plus Low Iron 27 mg iron- 1 mg tablet 1 tab PO DAILY Qty: 30 RF: 11 Referrals: Amauri Ramírez MD [Physician] - 3 days Dallas Angela MD [Physician] - 3 days Stand Alone Forms: Work/School Release Interventions: ED Discharge Assessment Last Done: 04/01/21 21:48
[2021-04-01 19:41] LABS: HCG Quantitative 4324 mIU/mL
[2021-04-01 20:17] VITALS: BP 129/80; PULSE 78; RESP 17; TEMP 36.9; O2SAT 97
[2021-04-01 20:30] LABS: Prothrombin Time 11.1 SEC (9.9-13.0)
[2021-04-01 20:33] LABS: Partial Thromboplastin Time 29.7 SEC (24.1-38.0)
[2021-04-01 20:45] LABS: COVID-19 Test Negative (Negative)
[2021-04-01 20:50] LABS: OBS Int Ctl Valid YES; OBS1 POSITIVE (NEGATIVE)
--- NOTE | 2021-04-01 21:28 | PC.NURSE ---
Pt alert and oriented x4, calm and cooperative. pt denies pain at this time. Pt states rectal bleeding x1 week. Pt denies abd pain or cramping. Pt educated on lab results. Pt resting in stretcher at this time, vitals stable. IV intact. Will continue to monitor.
[2021-04-01 21:45] VITALS: BP 122/60; PULSE 84; RESP 18; TEMP 36.9; O2SAT 96
[2021-04-02 01:40] LABS: CT PCR NOT DETECTED (Not Detect.); NG PCR NOT DETECTED (Not Detect.)
[2021-04-02 14:45] LABS: BV Int Neg Control Negative (Negative); BV Int Pos Control Positive (Positive)
== END 2021-04-01 21:49 | disposition home or self-care (01) ==
PROVIDERS: Physician Assistant Medical; Emergency Provider Emergency Medicine; PCP Family Medicine
DX: O26.91 Pregnancy related conditions, unspecified, first trimester (principal); R07.89 Other chest pain; K64.4 Residual hemorrhoidal skin tags; Z3A.01 Less than 8 weeks gestation of pregnancy; Z20.822 Contact with and (suspected) exposure to COVID-19
CPT/HCPCS: 36415; 71045; 76801; 76817; 80048; 81001; 81025; 82272; 84484; 84702; 85025; 85610; 85730; 86850; 86900; 86901; 87480; 87491; 87510; 87591; 87635; 87660; 93005; 99285

== ENCOUNTER 2021-04-11 10:50 | Emergency (ER) | payer MEDICAID, SELFPAY ==
[2021-04-11 10:58] VITALS: BP 116/74; PULSE 81; RESP 18; TEMP 36.9; O2SAT 100; BMI 23.8
--- NOTE | 2021-04-11 12:37 | ED_ITS ---
HPI - Nausea/Vomiting/Diarrhea General Chief complaint: Nausea/Vomiting/Diarrhea Stated complaint: 6 wks preg/vomiting/red discharge Time Seen by Provider: 04/11/21 12:35 Source: patient Mode of arrival: ambulatory Limitations: no limitations History of Present Illness HPI Narrative: 36-year-old female about 6 weeks by date, presented with nausea and vomiting for 4 days, patient been having hyperemesis gravidarum in her previous pregnancies, patient declined abdominal pain only when she vomits, patient declined any vaginal bleeding patient sporadically see brown discharge. Patient's blood type is O positive. Related Data Previous Rx's Medication Instructions Recorded vitamin with calcium 1 tab PO DAILY #30 tab 09/08/20 no.72-iron 27 mg-folic acid 1 mg tablet ( Vitamins Plus Low Iron) ondansetron 4 mg disintegrating 4 mg PO Q8H PRN #7 tab 12/07/20 tablet vitamin with calcium 1 tab PO DAILY #60 tab 04/01/21 no.72-iron 27 mg-folic acid 1 mg tablet ( Vitamins Plus Low Iron) miconazole nitrate 2 % vaginal 1 appful VAGINAL BEDTIME 7 Days g 04/06/21 cream Allergies Allergy/AdvReac Type Severity Reaction Status Date / Time No Known Allergies Allergy Unknown NONE Verified 04/01/21 14:24 Review of Systems Review of Systems: All other systems are reviewed and are negative Constitutional: Reports as per HPI and Reports no additional constitutional complaints Eyes: Reports as per HPI and Reports no additional eye complaints Reports system reviewed and no additional complaints, except as documented Cardiovascular: Reports as per HPI and Reports no additional cardiovascular complaints Respiratory: Reports as per HPI and Reports no additional respiratory complaints Gastrointestinal: Reports as per HPI and Reports no additional gastrointestinal complaints Genitourinary: Reports no additional female genitourinary complaints Musculoskeletal: Reports no additional musculoskeletal complaints Skin/Breast: Reports system reviewed and no additional complaints, except as docu Psychiatric: Reports no additional psychiatric complaints Endocrine: Reports no additional endocrine complaints Hematologic/Lymphatic: Reports no additional hematologic/lymphatic complaints Allergic/Immunologic: Reports no additional allergic/immunologic complaints Reports system reviewed and no additional complaints, except as documented and Reports Abnormal speech present PMFSH Past Medical History Surgical History Hx of section Family History Family History Maternal Grandmother Ovarian cancer Social History Social History Alcohol intake: never Patient Tobacco Use Status: Current everyday Tobacco user Use of substances other than those prescribed or required for medical reasons: No Substance Use Type: Marijuana Advance Directives: No Advance Directives Information Provided: Yes Patient : Yes Physical Exam Vital Signs: Vital Signs: Last Vital Signs Temp 98.4 F 04/11/21 10:58 Pulse 81 04/11/21 10:58 Resp 18 04/11/21 10:58 BP 116/74 04/11/21 10:58 Pulse Ox 100 04/11/21 10:58 Body Mass Index 23.8 Vital signs have been reviewed as appeared to be correct. Blood pressure normal. Heart rate normal. Respiration rate normal. Temperature normal. Oxygen saturation normal. Appearance: Alert. Oriented X3. No acute distress. Head: Normal external exam. Normocephalic. Atraumatic. No Ewing signs noted. No raccoon eyes noted Eyes: PERRLA. EOMI. Conjunctiva and sclera normal. Eyelids normal. ENT: TM's Normal. Pharynx normal. Uvula midline. Moist mucous membranes. No trismus noted. No drooling noted. No muffled voice noted. Neck: Normal inspection. Neck supple. FROM. No adenopathy. Thyroid Normal. No meningeal signs. No neck mass noted. CVS: Normal heart rate and rhythm. Heart sound normal. No murmurs noted. Pulses normal throughout. Respiratory: No respiratory distress. Painless inspiration. Breath sounds normal. No wheezes/rales/rhonchi noted. Chest nontender. No accessory muscle u sophie noted or decreased air movement noted. Abdomen: Soft and nontender. Bowel sounds normal in all 4 quadrants. No distention noted. No organomegaly noted. No visible injury noted. Back: No CVA tenderness. Full range of motion noted. Skin: Skin warm and dry. Normal skin color. Normal skin turgor. No rashes/lesions/lacerations noted. Extremities: No lower extremity edema. Extremities exhibit normal range of motion. Extremities nontender. Neuro: Oriented X 3. Cranial nerve exam: II-XII are grossly intact No motor deficit. No sensory deficit. Reflexes normal. Course Course Course Narrative: Assessment and plan. 36-year-old female 6 weeks came in was vomiting for the past 3 days, patient unable to keep food down, patient received IV hydration in the emergency department and 1 dose of Zofran, patient now feels hungry with good appetite, able to tolerate clear food in the emergency department without vomiting, will discharge the patient to continue with clear food then advance as tolerated. Labs are unremarkable. 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 Lab Data Attestation: I reviewed the patient's lab results. Result diagrams: 04/11/21 13:21 04/11/21 13:21 Labs: Lab Results 04/11/21 04/11/21 04/11/21 Range/Units 13:21 13:21 13:21 WBC 8.0 (4.8-10.8) X10*3/uL RBC 3.58 L (4.20-5.50) X10*6/uL Hgb 11.9 L (12.0-16.0) g/dl Hct 34.6 L (37-47) % MCV 96.6 (80-98) fL MCH 33.2 H (27.0-33.0) pg MCHC 34.4 (31.0-35.0) g/dl RDW 11.9 (11.0-16.0) % Plt Count 317 (160-400) X10*3/uL MPV 8.6 L (9.4-12.3) fL Immature Gran % (Auto) 0.4 (0.0-0.4) % Neut % (Auto) 68.1 (45-73) % Lymph % (Auto) 22.6 (20-40) % [place] % (Auto) 7.4 (2-11) % Eos % (Auto) 1.1 (0-4) % Baso % (Auto) 0.4 (0-2) % Lymph # (Auto) 1.8 (1.2-4.9) X10*3/uL [place] # (Auto) 0.6 (0.1-1.2) X10*3/uL Eos # (Auto) 0.1 (0.0-0.4) X10*3/uL Baso # (Auto) 0.0 (0.0-0.2) X10*3/uL Abs Immat Gran (auto) 0.03 (0.00-0.03) X10*3/uL Absolute Neuts (auto) 5.4 (2.0-8.3) X10*3/uL Absolute Nucleated RBC 0.000 (0.0-0.012) X10*3/uL Nucleated RBC % (auto) 0.0 (0.0-0.2) /100WBC Sodium 137 (135-145) mmol/L Potassium 4.5 (3.3-5.1) mmol/L Chloride 105 (96-108) mmol/L Carbon Dioxide 23 (22-29) mmol/L Anion Gap 14 (12-20) BUN 10 (9-16) mg/dL Creatinine 0.72 (0.5-1.4) mg/dL Estim Creat Clear Calc 86.2 Estimated GFR > 60 Random Glucose 80 (60-115) mg/dL Calcium 9.8 (8.4-10.2) mg/dL Total Bilirubin 1.0 (0.0-1.0) mg/dL Direct Bilirubin 0.4 (0.0-0.5) mg/dL AST 14 D (5-31) U/L ALT 19 (0-31) U/L Alkaline Phosphatase 71 (39-117) U/L Total Protein 7.7 (6.5-8.0) g/dL Albumin 4.4 (3.5-5.0) g/dL Lipase 16 (8-78) U/L Beta HCG, Quant 80269 mIU/mL Acetone, Qual Negative (Negative) Discharge Plan Discharge Clinical Impression: Hyperemesis gravidarum, , threatened Patient Disposition: Home, Self-Care Instructions: Threatened Miscarriage (ED), Hyperemesis Gravidarum (ED) Prescriptions: No Action ondansetron 4 mg tablet,disintegrating 4 mg PO Q8H PRN (Reason: nausea and vomiting) Qty: 7 RF: 0 Vitamin Plus Low Iron 27 mg iron- 1 mg tablet 1 tab PO DAILY Qty: 60 RF: 0 miconazole nitrate 2 % cream 1 appful vaginal BEDTIME 7 Days RF: 0 Vitamin Plus Low Iron 27 mg iron- 1 mg tablet 1 tab PO DAILY Qty: 30 RF: 11 Referrals: Keeley Berrios MD [Primary Care Provider] - 2 days
[2021-04-11 13:25] LABS: MANUAL DIFF FLAG NO
[2021-04-11 13:26] LABS: Basophils Percent Auto 0.4 % (0-2); Eosinophils Absolute Auto 0.1 X10*3/uL (0.0-0.4); Eosinophils Percent Auto 1.1 % (0-4); Hematocrit 34.6 % (37-47); Hemoglobin 11.9 g/dl (12.0-16.0); Imm Gran Abs Auto 0.03 X10*3/uL (0.00-0.03); Imm Gran Pct Auto 0.4 % (0.0-0.4); Lymphocytes Absolute Auto 1.8 X10*3/uL (1.2-4.9); Lymphocytes Percent Auto 22.6 % (20-40); Mean Corpuscular HGB Conc 34.4 g/dl (31.0-35.0); Mean Corpuscular Hemoglobin 33.2 pg (27.0-33.0); Mean Corpuscular Volume 96.6 fL (80-98); Mean Platelet Volume 8.6 fL (9.4-12.3); Monocytes Absolute Auto 0.6 X10*3/uL (0.1-1.2); Monocytes Percent Auto 7.4 % (2-11); Neutrophils Absolute Auto 5.4 X10*3/uL (2.0-8.3); Neutrophils Percent Auto 68.1 % (45-73); Platelet Count 317 X10*3/uL (160-400); Red Blood Count 3.58 X10*6/uL (4.20-5.50); Red Cell Distribution Width 11.9 % (11.0-16.0)
[2021-04-11] MEDS: ondansetron HCL 4 MG/2 ML VIAL IVPUSH (13:28)
[2021-04-11] MEDS: 0.9 % Sodium Chloride 1,000 ML 999 ML IVCONT (13:28)
[2021-04-11 13:36] LABS: Acetone, serum QL Negative (Negative)
[2021-04-11 13:45] LABS: Alanine Aminotransferase 19 U/L (0-31); Albumin Level 4.4 g/dL (3.5-5.0); Alkaline Phosphatase 71 U/L (39-117); Anion Gap 14 (12-20); Aspartate Amino Transferase 14 U/L (5-31); Bilirubin Direct 0.4 mg/dL (0.0-0.5); Blood Urea Nitrogen 10 mg/dL (9-16); Calcium 9.8 mg/dL (8.4-10.2); Carbon Dioxide 23 mmol/L (22-29); Chloride 105 mmol/L (96-108); Creatinine Clr Calc Pharmacy 86.2; Estimated Glomerular Filt Rate > 60; Glucose Random 80 mg/dL (60-115); Lipase 16 U/L (8-78); Potassium 4.5 mmol/L (3.3-5.1); Sodium 137 mmol/L (135-145); Total Protein 7.7 g/dL (6.5-8.0)
[2021-04-11] MEDS: Fluconazole 100 MG TABLET PO (15:29)
== END 2021-04-11 15:46 | disposition home or self-care (01) ==
PROVIDERS: Emergency Provider Emergency Medicine; PCP Family Medicine
DX: O20.0 Threatened abortion (principal); O21.0 Mild hyperemesis gravidarum; O09.521 Supervision of elderly multigravida, first trimester; O34.219 Maternal care for unspecified type scar from previous cesarean delivery; Z3A.01 Less than 8 weeks gestation of pregnancy
CPT/HCPCS: 36415; 80048; 80076; 82009; 83690; 84702; 85025; 96361; 96374; 99284; J2405

== ENCOUNTER 2021-05-08 11:48 | Emergency (ER) | payer MEDICAID, SELFPAY ==
--- NOTE | ~2021-05-08 | US_ITS ---
EXAMINATION: US OBSTETRICAL ULTRASOUND CLINICAL INFORMATION: 10 weeks . Cramping. COMPARISON: Ultrasound 04/01/2021. LMP: 02/27/2021. Gestational age by maternal dates is 10 weeks 0 days. Estimated date of delivery by maternal dates is 12/04/2021. TECHNIQUE: Ultrasound of the maternal pelvis is performed using transabdominal transducer. M-mode Doppler is also performed. FINDINGS: There is a single intrauterine gestational sac with visible yolk sac, embryo/fetus, and cardiac activity. There is no significant subchorionic hemorrhage or hematoma. HR: 167 beats per minute. CRL (crown rump length): 3.2 cm (10 weeks 1 day +/- 4 days). ROSA (estimated date of delivery): 12/03/2021 +/- 4 days. MATERNAL ADNEXA: The right maternal ovary measures 2.4 x 1.9 x 2.2 cm. The left maternal ovary measures 1.8 x 0.8 x 2.1 cm. There is no significant maternal adnexal mass. No maternal pelvic ascites. US/US OB <= 14 weeks fetus IMPRESSION: 1. Single intrauterine gestation with ultrasound gestational age of 10 weeks 1 day +/- 4 days. 2. Estimated date of delivery is 12/03/2021 +/- 4 days. 3. No maternal adnexal mass or pelvic ascites.
[2021-05-08 12:00] VITALS: BP 133/82; PULSE 86; RESP 18; TEMP 36.8; O2SAT 97; BMI 23.8
--- NOTE | 2021-05-08 14:12 | ED_ITS ---
HPI - Headache General Chief Complaint: Headache Stated Complaint: vomiting, headache, Time Seen by Provider: 05/08/21 14:10 Source: patient Mode of arrival: ambulatory Limitations: no limitations History of Present Illness HPI Narrative: 36 y/o female with history of hyperemesis gravidarum in prior pregnancies who is currently 10 weeks with confirmed IUP on 04/01 U/S presents to the ER with headache along with nausea and vomiting since last night at 8pm. She reports she has been getting morning sickness throughout our entire but usually resolves by middle afternoon. She states last night at o'clock she started vomiting again and has been unable to tolerate any p.o. all night. She was up overnight vomiting several times. She also reports a generalized headache. She tried to take Tylenol but vomited up. She has no diarrhea, no urinary symptoms. She does report some lower abdominal cramping over her scar and in her pelvis. She has no vaginal bleeding. She is O positive. MD elicited complaint: headache and other (nause and vomiting) Onset (ago): day(s) (1) Time: 20:00 Onset description: gradually Location: generalized Severity: moderate Quality & Timing: aching Exacerbating factors: light Relieving factors: rest Associated symptoms: nausea, vomiting and weakness Treatments prior to arrival: none Related Data Previous Rx's Medication Instructions Recorded vitamin with calcium 1 tab PO DAILY #30 tab 09/08/20 no.72-iron 27 mg-folic acid 1 mg tablet ( Vitamins Plus Low Iron) ondansetron 4 mg disintegrating 4 mg PO Q8H PRN #7 tab 12/07/20 tablet vitamin with calcium 1 tab PO DAILY #60 tab 04/01/21 no.72-iron 27 mg-folic acid 1 mg tablet ( Vitamins Plus Low Iron) miconazole nitrate 2 % vaginal 1 appful VAGINAL BEDTIME 7 Days g 04/06/21 cream ondansetron HCl 4 mg tablet 4 mg PO Q8H PRN #7 tab 04/11/21 (Zofran) ondansetron 4 mg disintegrating 4 mg PO Q8H PRN #10 tab 05/08/21 tablet Allergies Allergy/AdvReac Type Severity Reaction Status Date / Time No Known Allergies Allergy Unknown NONE Verified 05/08/21 12:00 Review of Systems Review of Systems: Constitutional: No Fever, + Chills ENT/Mouth: No sore throat, No Rhinorrhea, No Swallowing Difficulty Eyes: No Eye Pain, No Swelling, No Redness, No vision changes Cardiovascular: No Chest Pain, No SOB, No Orthopnea, No Edema Respiratory: No Cough, No Sputum, No Wheezing, No dyspnea Gastrointestinal: + Nausea, + Vomiting, No Diarrhea, + abdominal Pain, No He matochezia, No Melena, No hematemesis Genitourinary: No Dysuria, No Urinary Frequency, No Hematuria Musculoskeletal: No joint pain, No Myalgias Skin: No Skin Lesions, No rash Neuro: + Weakness, No Numbness, No Dizziness, + Headache Psych: + Anxiety/Panic, No Depression Heme/Lymph: No Bruising, No Lymphadenopathy Endocrine: No Polyuria, No Polydipsia PMFSH Past Medical History Surgical History Hx of section Family History Family History Maternal Grandmother Ovarian cancer Social History Social History Alcohol intake: never Patient Tobacco Use Status: Never used Tobacco Use of substances other than those prescribed or required for medical reasons: Yes Substance Use Type: Marijuana Advance Directives: No Patient : Yes Physical Exam Vital Signs: Vital Signs: Last Vital Signs Temp 98.3 F 05/08/21 12:00 Pulse 70 05/08/21 16:13 Resp 16 05/08/21 16:13 BP 130/84 05/08/21 16:13 Pulse Ox 100 05/08/21 16:13 Body Mass Index 23.8 Appearance: Alert. Oriented X3. No acute distress. Eyes: Pupils equal, round and reactive to light. ENT: Pharynx normal. Neck: Normal inspection. Neck supple. CVS: Normal heart rate and rhythm. Pulses normal. Respiratory: No respiratory distress. Breath sounds normal. Abdomen: Soft and nontender. +BS x4. gravid uterus palpable below the level of the umbilicus. Pelvic deferred. Skin: Skin warm and dry. Normal skin color. Normal skin turgor. No rashes. Extremities: No lower extremity edema. Neuro: Oriented X 3. No motor deficit. No sensory deficit. Course Course Course Narrative: 36-year-old female who is 10 weeks presents with nausea vomiting and headache that started yesterday. She has had on and off morning sickness during her entire and has a history of hyperemesis gravidarum on prior pregnancies. She is not taking any antiemetics currently. She has no fever or chills. She reports abdominal cramping but no bleeding. Unable to tolerate any p.o. since yesterday. Will check basic lab workup and ultrasound. Will hydrate give a dose of Zofran now. Reevaluation(s) Reevaluation #1: Patient feeling better after Zofran and fluids. Her workup is unremarkable. Her ultrasound is normal showing intrauterine at 10 weeks 1 day. Her urine shows no infection. No significant electrolyte derangements. She is tolerating a p.o. trial and is stable for discharge home with plan to follow up with electric razor mechanic here this week. Stable for DC and patient agrees with plan. MDM - Headache Lab Data Result diagrams: 05/08/21 14:51 05/08/21 14:51 Labs: Lab Results 05/08/21 05/08/21 05/08/21 Range/Units 14:40 14:41 14:51 WBC 7.1 (4.8-10.8) X10*3/uL RBC 3.28 L (4.20-5.50) X10*6/uL Hgb 10.8 L (12.0-16.0) g/dl Hct 31.3 L (37.0-47.0) % MCV 95.4 (80.0-98.0) fL MCH 32.9 (27.0-33.0) pg MCHC 34.5 (31.0-35.0) g/dl RDW 11.8 (11.0-16.0) % Plt Count 340 (160-400) X10*3/uL MPV 8.4 L (9.4-12.3) fL Immature Gran % (Auto) 0.3 (0.0-0.4) % Neut % (Auto) 64.1 (45-73) % Lymph % (Auto) 26.6 (20-40) % [place] % (Auto) 7.4 (2-11) % Eos % (Auto) 1.3 (0-4) % Baso % (Auto) 0.3 (0-2) % Lymph # (Auto) 1.9 (1.2-4.9) X10*3/uL [place] # (Auto) 0.5 (0.1-1.2) X10*3/uL Eos # (Auto) 0.1 (0.0-0.4) X10*3/uL Baso # (Auto) 0.0 (0.0-0.2) X10*3/uL Abs Immat Gran (auto) 0.02 (0.00-0.03) X10*3/uL Absolute Neuts (auto) 4.5 (2.0-8.3) x10*3/uL Absolute Nucleated RBC 0.000 (0.0-0.012) X10*3/uL Nucleated RBC % (auto) 0.0 (0.0-0.2) /100WBC Sodium (135-145) mmol/L Potassium (3.3-5.1) mmol/L Chloride (96-108) mmol/L Carbon Dioxide (22-29) mmol/L Anion Gap (12-20) BUN (9-16) mg/dL Creatinine (0.5-1.4) mg/dL Estim Creat Clear Calc Estimated GFR Random Glucose (60-115) mg/dL Calcium (8.4-10.2) mg/dL Magnesium (1.6-2.6) mg/dL Total Bilirubin (0.0-1.0) mg/dL Direct Bilirubin (0.0-0.5) mg/dL AST (5-31) U/L ALT (0-31) U/L Alkaline Phosphatase (39-117) U/L Total Protein (6.5-8.0) g/dL Albumin (3.5-5.0) g/dL Beta HCG, Quant mIU/mL Urine Color YELLOW Urine Appearance CLOUDY Urine pH 7.0 (5.0-8.0) Ur Specific [place] 1.015 (1.005-1.025) Urine Protein TRACE (NEG-TRACE) MG/DL Urine Glucose (UA) NEG (NEG) MG/DL Urine Ketones NEG (NEG) MG/DL Urine Blood TRACE (NEG) Urine Nitrite NEG (NEG) Ur Leukocyte Esterase NEG (NEG) Urine RBC 1-4 (0) /HPF Urine WBC 0-2 (0-4) /HPF Ur Squamous Epith Cells 2+ /LPF Amorphous Sediment 3+ /LPF Urine Bacteria TRACE /LPF Urine Mucus 2+ /LPF COVID-19 ([facility]JANDRO) Negative (Negative) COVID-19 Clin Com See Note 05/08/21 05/08/21 Range/Units 14:51 14:51 WBC (4.8-10.8) X10*3/uL RBC (4.20-5.50) X10*6/uL Hgb (12.0-16.0) g/dl Hct (37.0-47.0) % MCV (80.0-98.0) fL MCH (27.0-33.0) pg MCHC (31.0-35.0) g/dl RDW (11.0-16.0) % Plt Count (160-400) X10*3/uL MPV (9.4-12.3) fL Immature Gran % (Auto) (0.0-0.4) % Neut % (Auto) (45-73) % Lymph % (Auto) (20-40) % [place] % (Auto) (2-11) % Eos % (Auto) (0-4) % Baso % (Auto) (0-2) % Lymph # (Auto) (1.2-4.9) X10*3/uL [place] # (Auto) (0.1-1.2) X10*3/uL Eos # (Auto) (0.0-0.4) X10*3/uL Baso # (Auto) (0.0-0.2) X10*3/uL Abs Immat Gran (auto) (0.00-0.03) X10*3/uL Absolute Neuts (auto) (2.0-8.3) x10*3/uL Absolute Nucleated RBC (0.0-0.012) X10*3/uL Nucleated RBC % (auto) (0.0-0.2) /100WBC Sodium 134 L (135-145) mmol/L Potassium 4.3 (3.3-5.1) mmol/L Chloride 102 (96-108) mmol/L Carbon Dioxide 23 (22-29) mmol/L Anion Gap 13 (12-20) BUN 8 L (9-16) mg/dL Creatinine 0.63 (0.5-1.4) mg/dL Estim Creat Clear Calc 98.5 Estimated GFR > 60 Random Glucose 78 (60-115) mg/dL Calcium 9.2 D (8.4-10.2) mg/dL Magnesium 2.0 (1.6-2.6) mg/dL Total Bilirubin 0.3 (0.0-1.0) mg/dL Direct Bilirubin < 0.2 (0.0-0.5) mg/dL AST 13 (5-31) U/L ALT 12 (0-31) U/L Alkaline Phosphatase 56 D (39-117) U/L Total Protein 7.5 (6.5-8.0) g/dL Albumin 3.9 (3.5-5.0) g/dL Beta HCG, Quant 22157 mIU/mL Urine Color Urine Appearance Urine pH (5.0-8.0) Ur Specific [place] (1.005-1.025) Urine Protein (NEG-TRACE) MG/DL Urine Glucose (UA) (NEG) MG/DL Urine Ketones (NEG) MG/DL Urine Blood (NEG) Urine Nitrite (NEG) Ur Leukocyte Esterase (NEG) Urine RBC (0) /HPF Urine WBC (0-4) /HPF Ur Squamous Epith Cells /LPF Amorphous Sediment /LPF Urine Bacteria /LPF Urine Mucus /LPF COVID-19 (ALEJANDRO) (Negative) COVID-19 Clin Com Critical Care Time Critical Care Time Critical Care Time: No Discharge Plan Discharge Clinical Impression: Nausea and vomiting during Patient Disposition: Home, Self-Care Instructions: Nausea and Vomiting in (ED) Additional Instructions: Your ultrasound today showed a normal intrauterine gestation dated at a pproximately 10 weeks 1 day with estimated delivery date of 12/03/2021 +/-4 days. Your lab workup was unremarkable. Take the prescribed medication as needed for nausea and vomiting. Recommend over the counter vitamin B6 to help with nausea as well. Talk to your [facility] [employer] [employer] [facility] for other options. Follow up with them this week. Continue Tylenol 650 mg every 6 hours as needed for headaches and pain. Stick to a bland diet. If you develop new or worsening symptoms call 911 or come back to the ER for further evaluation. Prescriptions: New ondansetron 4 mg tablet,disintegrating 4 mg PO Q8H PRN (Reason: nausea and vomiting) Qty: 10 RF: 0 No Action ondansetron 4 mg tablet,disintegrating 4 mg PO Q8H PRN (Reason: nausea and vomiting) Qty: 7 RF: 0 Vitamin Plus Low Iron 27 mg iron- 1 mg tablet 1 tab PO DAILY Qty: 60 RF: 0 miconazole nitrate 2 % cream 1 appful vaginal BEDTIME 7 Days RF: 0 ondansetron HCl [Zofran] 4 mg tablet 4 mg PO Q8H PRN (Reason: nausea and vomiting) Qty: 7 RF: 0 Vitamin Plus Low Iron 27 mg iron- 1 mg tablet 1 tab PO DAILY Qty: 30 RF: 11 Referrals: Martha Schrader CNM [Certified Nurse Handle Sewer] - 2 days Interventions: ED Discharge Assessment Last Done: 05/08/21 16:37 Discharge Date/Time: 05/08/21 16:37
[2021-05-08 14:57] LABS: MANUAL DIFF FLAG NO
[2021-05-08 14:58] LABS: Basophils Percent Auto 0.3 % (0-2); Eosinophils Absolute Auto 0.1 X10*3/uL (0.0-0.4); Eosinophils Percent Auto 1.3 % (0-4); Hematocrit 31.3 % (37.0-47.0); Hemoglobin 10.8 g/dl (12.0-16.0); Imm Gran Abs Auto 0.02 X10*3/uL (0.00-0.03); Imm Gran Pct Auto 0.3 % (0.0-0.4); Lymphocytes Absolute Auto 1.9 X10*3/uL (1.2-4.9); Lymphocytes Percent Auto 26.6 % (20-40); Mean Corpuscular HGB Conc 34.5 g/dl (31.0-35.0); Mean Corpuscular Hemoglobin 32.9 pg (27.0-33.0); Mean Corpuscular Volume 95.4 fL (80.0-98.0); Mean Platelet Volume 8.4 fL (9.4-12.3); Monocytes Absolute Auto 0.5 X10*3/uL (0.1-1.2); Monocytes Percent Auto 7.4 % (2-11); Neutrophils Absolute Auto 4.5 x10*3/uL (2.0-8.3); Neutrophils Percent Auto 64.1 % (45-73); Platelet Count 340 X10*3/uL (160-400); Red Blood Count 3.28 X10*6/uL (4.20-5.50); Red Cell Distribution Width 11.8 % (11.0-16.0); White Blood Count 7.1 X10*3/uL (4.8-10.8)
[2021-05-08] MEDS: ondansetron HCL 4 MG/2 ML VIAL IVPUSH (15:02)
[2021-05-08] MEDS: 0.9 % Sodium Chloride 1,000 ML 999 ML IVCONT (15:03)
[2021-05-08 15:09] VITALS: BP 123/76; PULSE 66; RESP 18; O2SAT 100
[2021-05-08 15:10] LABS: Appearance Urine CLOUDY; Color Urine YELLOW; Glucose Urine UA NEG (NEG); Leukocyte Esterase Urine NEG (NEG); Nitrite Urine NEG (NEG); Specific Gravity - Urine 1.015 (1.005-1.025); UACC Culture Trigger NO; Urine Blood TRACE (NEG); Urine Ketones NEG (NEG); Urine Protein TRACE MG/DL (NEG-TRACE)
[2021-05-08 15:17] LABS: Amorphous Sediment Urine 3+ /LPF; Bacteria Urine TRACE /LPF; Mucus Urine 2+ /LPF; Squamous Epithelial Cell Urine 2+ /LPF; WBC Urine 0-2 /HPF (0-4)
[2021-05-08 15:19] LABS: Alanine Aminotransferase 12 U/L (0-31); Albumin Level 3.9 g/dL (3.5-5.0); Alkaline Phosphatase 56 U/L (39-117); Anion Gap 13 (12-20); Aspartate Amino Transferase 13 U/L (5-31); Bilirubin Direct < 0.2 mg/dL (0.0-0.5); Bilirubin Total 0.3 mg/dL (0.0-1.0); Blood Urea Nitrogen 8 mg/dL (9-16); Calcium 9.2 mg/dL (8.4-10.2); Carbon Dioxide 23 mmol/L (22-29); Chloride 102 mmol/L (96-108); Creatinine Clr Calc Pharmacy 98.5; Estimated Glomerular Filt Rate > 60; Glucose Random 78 mg/dL (60-115); Potassium 4.3 mmol/L (3.3-5.1); Sodium 134 mmol/L (135-145); Total Protein 7.5 g/dL (6.5-8.0)
[2021-05-08 15:34] LABS: COVID-19 Test Negative (Negative)
[2021-05-08 15:56] LABS: HCG Quantitative 34731 mIU/mL
[2021-05-08] MEDS: Acetaminophen 325 MG TABLET 650 MG PO (16:12)
[2021-05-08 16:13] VITALS: BP 130/84; PULSE 70; RESP 16; O2SAT 100
== END 2021-05-08 16:37 | disposition home or self-care (01) ==
PROVIDERS: Physician Assistant; Emergency Provider Emergency Medicine Emergency Medical Services; PCP Family Medicine
DX: O26.91 Pregnancy related conditions, unspecified, first trimester (principal); R11.2 Nausea with vomiting, unspecified; Z3A.10 10 weeks gestation of pregnancy; Z20.822 Contact with and (suspected) exposure to COVID-19
CPT/HCPCS: 36415; 76801; 80048; 80076; 81001; 81003; 83735; 84702; 85025; 87635; 96361; 96374; 99284; J2405

== ENCOUNTER 2021-05-28 09:47 | Emergency (ER) | payer OTHER, MEDICAID, SELFPAY ==
[2021-05-28 09:54] VITALS: BP 119/75; PULSE 86; RESP 16; TEMP 36.7; O2SAT 100; BMI 23.8
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
== END 2021-05-28 10:39 | disposition home or self-care (01) ==
PROVIDERS: Emergency Provider Emergency Medicine; PCP Family Medicine
DX: O9A.211 Injury, poisoning and certain other consequences of external causes complicating pregnancy, first trimester (principal); S39.012A Strain of muscle, fascia and tendon of lower back, initial encounter; Z3A.13 13 weeks gestation of pregnancy; V43.52XA Car driver injured in collision with other type car in traffic accident, initial encounter; Y93.89 Activity, other specified; Y92.414 Local residential or business street as the place of occurrence of the external cause; Y99.8 Other external cause status
CPT/HCPCS: 99283

== ENCOUNTER 2021-06-05 03:17 | Emergency (ER) | payer MEDICAID, SELFPAY ==
--- NOTE | ~2021-06-05 | US_ITS ---
EXAMINATION: US OB LIMITED CLINICAL INFORMATION: 14 weeks of . Vaginal bleeding. Gestational age based on LMP is 14 weeks. COMPARISON: Prior ultrasound from 05/08/2021 TECHNIQUE: Sonographic imaging of the pelvis was performed using a transabdominal transducer. FINDINGS: Single viable intrauterine gestation is present. heart rate is 156 bpm. Fetus is in cephalic presentation. Normal amniotic fluid volume is seen. A normal anterior placenta is observed. biometry is as follows: Biparietal diameter of 2.78 cm (gestational age of 15 weeks) Head circumference of 9.63 cm (gestational age of 14 weeks, 3 days) Abdominal circumference of 8.83 cm (gestational age of 15 weeks, 1 day) Femur length of 1.41 cm (gestational age of 14 weeks, 2 days) The estimated weight is 102 g. Overall, the ultrasound determined gestational age is 14 weeks, 5 days with estimated date of delivery of 11/29/2021. The maternal right ovary is 2.4 x 1.7 x 2.5 cm, volume of 5.5 mL. The maternal left ovary is 2.2 x 1 x 1.9 cm, volume of 2.2 mL. No adnexal mass. No pelvic free fluid. US/US OB limited IMPRESSION: Single viable intrauterine gestation is present. There are no findings of complications of . The ultrasound estimated gestational age is 14 weeks, 5 days.
[2021-06-05 03:27] VITALS: BP 122/75; PULSE 76; RESP 16; TEMP 37.2; O2SAT 100; BMI 23.8
--- NOTE | 2021-06-05 03:44 | PC.NURSE ---
FHR 138 with doppler.
--- NOTE | 2021-06-05 08:26 | ED_ITS ---
HPI - General Adult General Chief complaint: OB Stated complaint: 14 weeks/ Vaginal Bleeding Time Seen by Provider: 06/05/21 08:16 Source: patient Mode of arrival: ambulatory Limitations: no limitations History of Present Illness HPI narrative: 36-year-old female about 14 weeks came in with vaginal spotting and pelvic contraction. Symptoms started since yesterday started with blood only when she wipes after urination, no marbella bleeding or blood clots, patient also feel contractions in the pelvis, no trauma to the abdomen or pelvis, no history of PID, no vaginal discharge. Related Data Previous Rx's Medication Instructions Recorded vitamin with calcium 1 tab PO DAILY #30 tab 09/08/20 no.72-iron 27 mg-folic acid 1 mg tablet ( Vitamins Plus Low Iron) ondansetron 4 mg disintegrating 4 mg PO Q8H PRN #7 tab 12/07/20 tablet vitamin with calcium 1 tab PO DAILY #60 tab 04/01/21 no.72-iron 27 mg-folic acid 1 mg tablet ( Vitamins Plus Low Iron) miconazole nitrate 2 % vaginal 1 appful VAGINAL BEDTIME 7 Days g 04/06/21 cream ondansetron HCl 4 mg tablet 4 mg PO Q8H PRN #7 tab 04/11/21 (Zofran) ondansetron 4 mg disintegrating 4 mg PO Q8H PRN #10 tab 05/08/21 tablet lidocaine 5 % topical patch 1 patch TOPICAL DAILY #15 ea 05/28/21 (Lidoderm) Allergies Allergy/AdvReac Type Severity Reaction Status Date / Time No Known Allergies Allergy Unknown NONE Verified 06/05/21 03:37 Review of Systems Review of Systems: All other systems are reviewed and are negative Constitutional: Reports as per HPI and Reports no additional constitutional complaints Eyes: Reports as per HPI and Reports no additional eye complaints Reports system reviewed and no additional complaints, except as documented Cardiovascular: Reports as per HPI and Reports no additional cardiovascular complaints Respiratory: Reports as per HPI and Reports no additional respiratory complaints Gastrointestinal: Reports as per HPI and Reports no additional gastrointestinal complaints Genitourinary: Reports no additional female genitourinary complaints Musculoskeletal: Reports no additional musculoskeletal complaints Skin/Breast: Reports system reviewed and no additional complaints, except as docu Psychiatric: Reports no additional psychiatric complaints Endocrine: Reports no additional endocrine complaints Hematologic/Lymphatic: Reports no additional hematologic/lymphatic complaints Allergic/Immunologic: Reports no additional allergic/immunologic complaints Reports system reviewed and no additional complaints, except as documented and Reports Abnormal speech present [facility] Past Medical History Surgical History Hx of section Family History Family History Maternal Grandmother Ovarian cancer Social History Social History Alcohol intake: never Patient Tobacco Use Status: Never used Tobacco Use of substances other than those prescribed or required for medical reasons: No Substance Use Type: Marijuana Advance Directives: No Patient : Yes Physical Exam Vital Signs: Vital Signs: Last Vital Signs Temp 99 F 06/05/21 03:27 Pulse 70 06/05/21 09:04 Resp 14 06/05/21 09:04 BP 104/65 06/05/21 09:04 Pulse Ox 100 06/05/21 09:04 BMI result Body Mass Index 23.8 Vital signs have been reviewed as appeared to be correct. Blood pressure normal. Heart rate normal. Respiration rate normal. Temperature normal. Oxygen saturation normal. Appearance: Alert. Oriented X3. No acute distress. Head: Normal external exam. Normocephalic. Atraumatic. No Ewing signs noted. No raccoon eyes noted Eyes: PERRLA. EOMI. Conjunctiva and sclera normal. Eyelids normal. ENT: TM's Normal. Pharynx normal. Uvula midline. Moist mucous membranes. No trismus noted. No drooling noted. No muffled voice noted. Neck: Normal inspection. Neck supple. FROM. No adenopathy. Thyroid Normal. No meningeal signs. No neck mass noted. CVS: Normal heart rate and rhythm. Heart sound normal. No murmurs noted. Pulses normal throughout. Respiratory: No respiratory distress. Painless inspiration. Breath sounds normal. No wheezes/rales/rhonchi noted. Chest nontender. No accessory muscle usage noted or decreased air movement noted. Abdomen: Soft and nontender. Bowel sounds normal in all 4 quadrants. No distention noted. No organomegaly noted. No visible injury noted. Back: No CVA tenderness. Full range of motion noted. Skin: Skin warm and dry. Normal skin color. Normal skin turgor. No rashes/lesions/lacerations noted. Extremities: No lower extremity edema. Extremities exhibit normal range of motion. Extremities nontender. Neuro: Oriented X 3. Cranial nerve exam: II-XII are grossly intact No motor deficit. No sensory deficit. Reflexes normal. Course Course Course Narrative: Assessment and plan. 36-year-old female with vaginal spotting no abdominal pain or cramps, abdominal exam showed no tenderness, ultrasound showed 14 weeks 5 days with simple viable IUP. Patient was instructed to rest, no strenuous activity, no intercourse until the bleed., and follow-up with Ob this week. Medical Decision Making Lab Data Lab results reviewed: Yes I reviewed the patient's lab results. Result diagrams: 06/05/21 09:02 06/05/21 09:02 Labs: Lab Results 06/05/21 06/05/21 06/05/21 Range/Units 09:02 09:02 09:02 WBC 10.0 (4.8-10.8) X10*3/uL RBC 3.13 L (4.20-5.50) X10*6/uL Hgb 10.2 L (12.0-16.0) g/dl Hct 30.7 L (37.0-47.0) % MCV 98.1 H (80.0-98.0) fL MCH 32.6 (27.0-33.0) pg MCHC 33.2 (31.0-35.0) g/dl RDW 12.3 (11.0-16.0) % Plt Count 325 (160-400) X10*3/uL MPV 8.8 L (9.4-12.3) fL Immature Gran % (Auto) 0.9 H (0.0-0.4) % Neut % (Auto) 73.5 H (45-73) % Lymph % (Auto) 18.5 L (20-40) % [place] % (Auto) 5.9 (2-11) % Eos % (Auto) 0.9 (0-4) % Baso % (Auto) 0.3 (0-2) % Lymph # (Auto) 1.9 (1.2-4.9) X10*3/uL [place] # (Auto) 0.6 (0.1-1.2) X10*3/uL Eos # (Auto) 0.1 (0.0-0.4) X10*3/uL Baso # (Auto) 0.0 (0.0-0.2) X10*3/uL Abs Immat Gran (auto) 0.09 H (0.00-0.03) X10*3/uL Absolute Neuts (auto) 7.4 (2.0-8.3) x10*3/uL Absolute Nucleated RBC 0.000 (0.0-0.012) X10*3/uL Nucleated RBC % (auto) 0.0 (0.0-0.2) /100WBC Sodium 136 (135-145) mmol/L Potassium 4.4 (3.3-5.1) mmol/L Chloride 107 (96-108) mmol/L Carbon Dioxide 23 (22-29) mmol/L Anion Gap 10 L (12-20) BUN 7 L (9-16) mg/dL Creatinine 0.62 (0.5-1.4) mg/dL Estim Creat Clear Calc 100.1 Estimated GFR > 60 Random Glucose 79 (60-115) mg/dL Calcium 9.3 (8.4-10.2) mg/dL Beta HCG, Quant 02011 mIU/mL Imaging Data Limited Ob ultrasound: Attestation: I personally reviewed and interpreted this imaging study as follows: Radiologist's impression: Single viable intrauterine gestation is present. There are no findings of complications of . The ultrasound estimated gestational age is 14 weeks, 5 days.? Discharge Plan Discharge Clinical Impression: , threatened Patient Disposition: Home, Self-Care Instructions: Threatened Miscarriage (ED) Additional Instructions: Follow-up with your OB this week. Prescriptions: No Action ondansetron 4 mg tablet,disintegrating 4 mg PO Q8H PRN (Reason: nausea and vomiting) Qty: 7 RF: 0 Vitamin Plus Low Iron 27 mg iron- 1 mg tablet 1 tab PO DAILY Qty: 60 RF: 0 miconazole nitrate 2 % cream 1 appful vaginal BEDTIME 7 Days RF: 0 ondansetron HCl [Zofran] 4 mg tablet 4 mg PO Q8H PRN (Reason: nausea and vomiting) Qty: 7 RF: 0 lidocaine [Lidoderm] 5 % adhesive patch,medicated 1 patch topical DAILY Qty: 15 RF: 0 ondansetron 4 mg tablet,disintegrating 4 mg PO Q8H PRN (Reason: nausea and vomiting) Qty: 10 RF: 0 Vitamin Plus Low Iron 27 mg iron- 1 mg tablet 1 tab PO DAILY Qty: 30 RF: 11 Referrals: Keeley Berrios MD [Primary Care Provider] - 2 days
[2021-06-05 09:04] VITALS: BP 104/65; PULSE 70; RESP 14; O2SAT 100
--- NOTE | 2021-06-05 09:06 | PC.NURSE ---
Pt 4 weeks , started with vaginal spotting then stopped but started again yesterday with mild intermittent abd cramping. Pt sttes bleeding when wiping, no clots and not heavy at this time. H/O anemia, skin is pale. VSS. IV established and labs sent
[2021-06-05 09:13] LABS: MANUAL DIFF FLAG NO
[2021-06-05 09:14] LABS: Basophils Percent Auto 0.3 % (0-2); Eosinophils Absolute Auto 0.1 X10*3/uL (0.0-0.4); Eosinophils Percent Auto 0.9 % (0-4); Hematocrit 30.7 % (37.0-47.0); Hemoglobin 10.2 g/dl (12.0-16.0); Imm Gran Abs Auto 0.09 X10*3/uL (0.00-0.03); Imm Gran Pct Auto 0.9 % (0.0-0.4); Lymphocytes Absolute Auto 1.9 X10*3/uL (1.2-4.9); Lymphocytes Percent Auto 18.5 % (20-40); Mean Corpuscular HGB Conc 33.2 g/dl (31.0-35.0); Mean Corpuscular Hemoglobin 32.6 pg (27.0-33.0); Mean Corpuscular Volume 98.1 fL (80.0-98.0); Mean Platelet Volume 8.8 fL (9.4-12.3); Monocytes Absolute Auto 0.6 X10*3/uL (0.1-1.2); Monocytes Percent Auto 5.9 % (2-11); Neutrophils Absolute Auto 7.4 x10*3/uL (2.0-8.3); Neutrophils Percent Auto 73.5 % (45-73); Platelet Count 325 X10*3/uL (160-400); Red Blood Count 3.13 X10*6/uL (4.20-5.50); Red Cell Distribution Width 12.3 % (11.0-16.0)
[2021-06-05 09:36] LABS: Anion Gap 10 (12-20); Blood Urea Nitrogen 7 mg/dL (9-16); Calcium 9.3 mg/dL (8.4-10.2); Carbon Dioxide 23 mmol/L (22-29); Chloride 107 mmol/L (96-108); Creatinine Clr Calc Pharmacy 100.1; Estimated Glomerular Filt Rate > 60; Glucose Random 79 mg/dL (60-115); Potassium 4.4 mmol/L (3.3-5.1); Sodium 136 mmol/L (135-145)
== END 2021-06-05 11:26 | disposition home or self-care (01) ==
PROVIDERS: Emergency Provider Emergency Medicine; PCP Family Medicine
DX: O20.0 Threatened abortion (principal); Z3A.14 14 weeks gestation of pregnancy; O09.522 Supervision of elderly multigravida, second trimester
CPT/HCPCS: 36415; 76815; 80048; 84702; 85025; 99284

== ENCOUNTER → 2021-08-17 13:17 | Outpatient (BNVA) | payer MEDICAID, SELFPAY | PROVIDERS: PCP Family Medicine; Referring Provider Family Medicine; Visit Provider Nurse Practitioner Family | DX: K62.5 Hemorrhage of anus and rectum (principal) | CPT/HCPCS: 99202 ==

== ENCOUNTER 2021-09-30 13:13 | Outpatient (REF) | payer MEDICAID, SELFPAY ==
[2021-09-30 14:52] LABS: Mean Corpuscular HGB Conc 32.5 g/dl (31.0-35.0); Mean Corpuscular Volume 98.7 fL (80.0-98.0); Mean Platelet Volume 9.2 fL (9.4-12.3); Platelet Count 365 X10*3/uL (160-400); Red Blood Count 2.31 X10*6/uL (4.20-5.50); Red Cell Distribution Width 12.3 % (11.0-16.0); White Blood Count 10.4 X10*3/uL (4.8-10.8)
[2021-09-30 14:54] LABS: Hematocrit 22.8 % (37.0-47.0); Hemoglobin 7.4 g/dl (12.0-16.0)
[2021-09-30 15:12] LABS: Iron 94 mcg/dL (30-160); Percent Iron Saturation 16 % (15-50); Total Iron Binding Capacity 601 mcg/dL (228-428); Unsaturated Iron Binding 507 ug/dL
[2021-09-30 16:04] LABS: Folate 14.5 ng/mL (> or = 4.0); Vitamin B12 < 146 pg/mL (200-900)
[2021-10-05 13:27] LABS: Vitamin D 25-OH, D2 <4 ng/mL; Vitamin D 25-OH, D3 6 ng/mL; Vitamin D 25-OH, Total 6 ng/mL (30-100)
== END 2021-09-30 13:14 | disposition home or self-care (01) ==
LOC: HO.LAB 13:13
PROVIDERS: PCP Family Medicine; Referring Provider Family Medicine; Visit Provider Nurse Practitioner Family
DX: K92.2 Gastrointestinal hemorrhage, unspecified (principal); D50.0 Iron deficiency anemia secondary to blood loss (chronic); K64.4 Residual hemorrhoidal skin tags; E55.9 Vitamin D deficiency, unspecified; D64.9 Anemia, unspecified; R19.7 Diarrhea, unspecified
CPT/HCPCS: 36415; 82306; 82607; 82746; 83540; 85027; 99212

== ENCOUNTER 2023-01-11 09:07 | Outpatient (REF) | payer MEDICAID, SELFPAY ==
[2023-01-11 11:33] LABS: MANUAL DIFF FLAG NO
[2023-01-11 12:13] LABS: Basophils Absolute Auto 0.1 X10*3/uL (0.0-0.2); Basophils Percent Auto 1.2 % (0-2); Eosinophils Absolute Auto 0.2 X10*3/uL (0.0-0.4); Eosinophils Percent Auto 3.6 % (0-4); Hematocrit 34.2 % (37.0-47.0); Imm Gran Abs Auto 0.01 X10*3/uL (0.00-0.03); Imm Gran Pct Auto 0.2 % (0.0-0.4); Lymphocytes Absolute Auto 1.6 X10*3/uL (1.2-4.9); Lymphocytes Percent Auto 30.9 % (20-40); Mean Corpuscular HGB Conc 32.2 g/dl (31.0-35.0); Mean Corpuscular Hemoglobin 30.6 pg (27.0-33.0); Mean Corpuscular Volume 95.3 fL (80.0-98.0); Mean Platelet Volume 9.2 fL (9.4-12.3); Monocytes Absolute Auto 0.3 X10*3/uL (0.1-1.2); Neutrophils Absolute Auto 2.9 x10*3/uL (2.0-8.3); Neutrophils Percent Auto 58.1 % (45-73); Platelet Count 445 X10*3/uL (160-400); Red Blood Count 3.59 X10*6/uL (4.20-5.50); Red Cell Distribution Width 12.9 % (11.0-16.0)
[2023-01-11 12:59] LABS: Alanine Aminotransferase 9 U/L (0-31); Alkaline Phosphatase 66 U/L (39-117); Anion Gap 13 (12-20); Aspartate Amino Transferase 12 U/L (5-31); Bilirubin Direct 0.2 mg/dL (0.0-0.5); Bilirubin Total 0.6 mg/dL (0.0-1.0); Blood Urea Nitrogen 7 mg/dL (9-16); Carbon Dioxide 21 mmol/L (22-29); Chloride 108 mmol/L (96-108); Cholesterol 165 mg/dL; Estimated Glomerular Filt Rate > 60; Glucose Random 79 mg/dL (60-115); HDL Cholesterol 55 mg/dL; LDL Cholesterol Calculated 100 mg/dl; Potassium 3.6 mmol/L (3.3-5.1); Sodium 138 mmol/L (135-145); TSH reflex Free T4 3.91 uIU/mL (0.32-4.0); Total Protein 7.4 g/dL (6.5-8.0); Triglycerides 50 mg/dL
[2023-01-11 13:02] LABS: Vitamin B12 229 pg/mL (200-900)
[2023-01-15 17:23] LABS: VITAMIN D (1,25 OH) D3 61 pg/mL; Vit D (1,25-Dihydroxy) Total 61 pg/mL (18-72); Vitamin D (1,25 OH) D2 <8 pg/mL
== END 2023-01-11 09:08 | disposition home or self-care (01) ==
LOC: HO.HHCL 09:07
PROVIDERS: Visit Provider Family Medicine
DX: I10 Essential (primary) hypertension (principal); E03.9 Hypothyroidism, unspecified; R41.3 Other amnesia; E55.9 Vitamin D deficiency, unspecified
CPT/HCPCS: 36415; 80048; 80061; 80076; 82607; 82652; 84443; 85025

== ENCOUNTER 2023-07-16 09:55 | Outpatient (REF) | payer MEDICAID, SELFPAY ==
[2023-07-16 11:19] LABS: MANUAL DIFF FLAG NO
[2023-07-16 11:24] LABS: Basophils Percent Auto 0.8 % (0-2); Eosinophils Absolute Auto 0.1 X10*3/uL (0.0-0.4); Hematocrit 32.6 % (37.0-47.0); Hemoglobin 10.6 g/dl (12.0-16.0); Imm Gran Abs Auto 0.01 X10*3/uL (0.00-0.03); Imm Gran Pct Auto 0.3 % (0.0-0.4); Lymphocytes Absolute Auto 1.4 X10*3/uL (1.2-4.9); Lymphocytes Percent Auto 37.5 % (20-40); Mean Corpuscular HGB Conc 32.5 g/dl (31.0-35.0); Mean Corpuscular Hemoglobin 31.3 pg (27.0-33.0); Mean Corpuscular Volume 96.2 fL (80.0-98.0); Mean Platelet Volume 9.8 fL (9.4-12.3); Monocytes Absolute Auto 0.3 X10*3/uL (0.1-1.2); Monocytes Percent Auto 7.4 % (2-11); Neutrophils Absolute Auto 1.9 x10*3/uL (2.0-8.3); Platelet Count 340 X10*3/uL (160-400); Red Blood Count 3.39 X10*6/uL (4.20-5.50); Red Cell Distribution Width 12.5 % (11.0-16.0); White Blood Count 3.7 X10*3/uL (4.8-10.8)
[2023-07-16 12:25] LABS: Vitamin B12 220 pg/mL (200-900)
[2023-07-16 12:31] LABS: Alanine Aminotransferase 11 U/L (0-31); Albumin Level 3.9 g/dL (3.5-5.0); Alkaline Phosphatase 82 U/L (39-117); Anion Gap 11 (12-20); Aspartate Amino Transferase 11 U/L (5-31); Bilirubin Direct < 0.2 mg/dL (0.0-0.5); Bilirubin Total 0.2 mg/dL (0.0-1.0); Blood Urea Nitrogen 9 mg/dL (9-16); Calcium 9.4 mg/dL (8.4-10.2); Carbon Dioxide 27 mmol/L (22-29); Chloride 106 mmol/L (96-108); Cholesterol 164 mg/dL (<200); Estimated Glomerular Filt Rate > 60; Glucose Random 81 mg/dL (60-115); HDL Cholesterol 61 mg/dL (>40); Iron 34 mcg/dL (30-160); LDL Cholesterol Calculated 92 mg/dL (<100); Percent Iron Saturation 9 % (15-50); Potassium 4.5 mmol/L (3.3-5.1); Sodium 139 mmol/L (135-145); Total Iron Binding Capacity 364 mcg/dL (228-428); Total Protein 7.3 g/dL (6.5-8.0); Triglycerides 55 mg/dL (<150); Unsaturated Iron Binding 330 ug/dL
[2023-07-16 12:56] LABS: Ferritin 5 ng/mL (10-122); TSH reflex Free T4 3.13 uIU/mL (0.32-4.0); Vitamin D 25-OH Total 5.7 ng/mL (>30)
[2023-07-16 13:19] LABS: Syphilis Screen Nonreactive (Nonreactive)
== END 2023-07-16 09:56 | disposition home or self-care (01) ==
LOC: HO.HHCL 09:55
PROVIDERS: Visit Provider Family Medicine
DX: I10 Essential (primary) hypertension (principal); E03.9 Hypothyroidism, unspecified; E55.9 Vitamin D deficiency, unspecified; A53.0 Latent syphilis, unspecified as early or late; E53.8 Deficiency of other specified B group vitamins; Z86.2 Personal history of diseases of the blood and blood-forming organs and certain disorders involving the immune mechanism
CPT/HCPCS: 36415; 80048; 80061; 80076; 82306; 82607; 82728; 83540; 83735; 84443; 85025; 86780

== ENCOUNTER 2024-07-31 13:34 | Emergency (ER) | payer MEDICAID, SELFPAY ==
--- NOTE | 2024-07-31 | ECG_ITS ---
Test Reason : cp Blood Pressure : */* mmHG Vent. Rate : 97 BPM Atrial Rate : 97 BPM P-R Int : 124 ms QRS Dur : 90 ms QT Int : 378 ms P-R-T Axes : 65 -41 21 degrees QTcB Int : 480 ms Normal sinus rhythm Left axis deviation Minimal voltage criteria for LVH, may be normal variant ( [place] product ) Nonspecific ST and T wave abnormality Abnormal ECG When compared with ECG of 01-Apr-2021 15:18, QRS axis Shifted left Nonspecific T wave abnormality now evident in Lateral leads Referred By: Generic ED Physician Electronically Signed By: JACEK SCHWARTZ MD
--- NOTE | ~2024-07-31 | XR_ITS ---
EXAMINATION: XR CHEST 2 VIEWS HISTORY: cp COMPARISON: Comparison is made with the prior examination dated 04/01/2021. FINDINGS: PA and lateral views of the chest are submitted. The lungs are expanded and clear. There is no pleural effusion, pneumothorax, or pulmonary vascular congestion. The heart is normal in size. The bones are intact. XR/XR chest 2V IMPRESSION: No acute cardiopulmonary abnormality. Electronically signed by: Ethan Gore MD 07/31/2024 02:23 PM JAS
[2024-07-31 13:45] VITALS: BP 160/104; PULSE 104; O2SAT 100
[2024-07-31 13:57] VITALS: BP 129/82; PULSE 95; RESP 18; TEMP 36.9; O2SAT 100; BMI 24.5
--- NOTE | 2024-07-31 13:57 | ED.GENADULT ---
HPI - General Adult General Chief complaint: Chest Pain Stated complaint: CP/SOB Time Seen by Provider: 07/31/24 20:47 Source: patient Limitations: no limitations History of Present Illness ED Provider: Parris Barrow PA-C HPI narrative: 39-year-old female with a history of preeclampsia, who required medication for her blood pressure , no longer on hypertensive agents, presents with chest pain and shortness of breath x1 month. Patient states she has been having intermittent episodes of chest discomfort and shortness of breath. Patient states she just returned home from vacation, she developed similar symptoms at the airport. Associated chills and generalized malaise. Patient went to urgent Care, they noted that her blood pressure was markedly elevated. Patient denies diaphoresis, nausea, vomiting, active cough or cold symptoms. She is asymptomatic at this time. She does have sick contacts with similar symptoms. Related Data Home Medications ?Medication ?Instructions ?Recorded ?Confirmed aspirin 81 mg tablet,delayed 81 mg PO DAILY 08/17/21 release (Adult Aspirin Regimen) Previous Rx's ?Medication ?Instructions ?Recorded vitamin with calcium 1 tab PO DAILY #30 tabs 09/08/20 no.72-iron 27 mg-folic acid 1 mg tablet ( Vitamins Plus Low Iron) vitamin with calcium 1 tab PO DAILY #60 tabs 04/01/21 no.72-iron 27 mg-folic acid 1 mg tablet ( Vitamins Plus Low Iron) miconazole nitrate 2 % vaginal 1 appful vaginal BEDTIME 7 days 04/06/21 cream lidocaine 5 % topical patch 1 patch topical DAILY #15 ea 05/28/21 (Lidoderm) docusate sodium 100 mg capsule 100 mg PO BEDTIME #30 caps 08/17/21 ascorbate calcium (vitamin C) 500 500 mg PO BID #60 tabs 10/06/21 mg tablet cholecalciferol (vitamin D3) 25 25 mcg PO DAILY #30 caps 10/06/21 mcg (1,000 unit) capsule cyanocobalamin (vitamin B-12) 1,000 mcg PO DAILY #30 caps 10/06/21 1,000 mcg capsule hydrocortisone 2.5 % topical cream 1 appl FL BID-QID PRN hemorrhoids 10/06/21 with perineal applicator #30 grams (Anusol-HC) Allergies Allergy/AdvReac Type Severity Reaction Status Date / Time No Known Allergies Allergy Unknown NONE Verified 07/31/24 13:58 Review of Systems Review of Systems: Yes all other systems are reviewed and are negative Constitutional: Constitutional: Reports chills, Reports fatigue, Denies fever(s), Denies headache(s) and Reports malaise ENT: Denies dizziness and Denies headache(s) Cardiovascular: Cardiovascular: Reports chest pain and Reports dyspnea Respiratory: Respiratory: Denies cough and Reports dyspnea Gastrointestinal: Gastrointestinal: Denies abdominal pain, Denies diarrhea, Denies nausea and Denies vomiting Neurologic: Denies dizziness and Denies headache(s) Endocrine: Endocrine: Reports fatigue PMFSH Past Medical History Attestation statement: The following information was validated with the patient. Surgical History Hx of section Family History Family History Maternal Grandmother Ovarian cancer Social History Social History Alcohol intake: never Patient Tobacco Use Status: Never used Tobacco Substance Use Type: Marijuana Advance Directives: No Advance Directives Information Provided: No Do you have a plan to hurt others: No Plan Physical Exam ED Vital Signs: Vital Signs - 24 hr 07/31/24 13:57 Temperature 98.5 F Pulse Rate 95 Respiratory Rate 18 Blood Pressure 129/82 Pulse Oximetry 100 Oxygen Delivery Method Room Air BMI result Body Mass Index 24.5 Const Other: Alert, appears as if she does not feel well Orientation/consciousness: patient oriented x3 Resp Effort & Inspection: normal respiratory effort Cardio Other: Normal peripheral perfusion Skin Other: Warm dry no rash Neuro General: patient oriented x3, gait normal, no focal motor deficits and CN's II-XI intact bilaterally Psych Other: Cooperative Course Course Course Narrative: This is a rapid medical exam performed by Bruce Estrada NP: Additional HPI, ROS, PE not included below will be deferred to primary provider. Patient is a 39-year-old female presenting with complaint of mild chest pain for the past month and a half. Was flying home from [facility] on Sunday and was asleep, woke from sleep feeling like my soul left my body, pain which she describes as tearing, radiating to back. Not on OCPs, denies personal or family history of blood clots. Plan: EKG, CXR, labs, viral panel Medical Decision Making Medical Decision Making MDM Narrative: 39-year-old female with a history of preeclampsia, who required medication for her blood pressure , no longer on hypertensive agents, presents with chest pain and shortness of breath x1 month. Patient states she has been having intermittent episodes of chest discomfort and shortness of breath. Patient states she just returned home from vacation, she developed similar symptoms at the airport. Associated chills and generalized malaise. Patient went to urgent Care, they noted that her blood pressure was markedly elevated. Patient denies diaphoresis, nausea, vomiting, active cough or cold symptoms. She is asymptomatic at this time. She does have sick contacts with similar symptoms. Prior preeclampsia History: Per patient I have considered the following differential diagnoses: Hypertensive urgency, hypertensive emergency, end-organ damage, ACS, viral syndrome, pneumonia, bronchitis Plan: The patient has not been hypertensive here, unclear what was witnessed at the urgent care center. She has a underlying vague symptoms of viral syndrome. ACS was considered, screening labs including a cardiac enzymes EKG and chest x-ray were obtained. A viral panel was obtained as well. Everything is negative. Unclear if she truly was hypertensive at all. She can follow up with primary care for further assessment. I did explain to the patient that having an isolated elevated blood pressure is meaningless, that there are many factors that can falsely elevated blood pressure. She verbalizes understanding. I also told her that she may be coming down with a virus, that perhaps her viral road is not adequate to elicit a positive result; the viral panel was negative. I have independently reviewed the following tests: Labs: No leukocytosis, not anemic, no electrolyte abnormality, troponin negative, not , viral panel negative EKG: Normal sinus rhythm, rate of 97, left axis deviation, nonspecific T-wave abnormality in lateral leads, no active ischemic changes, QTC 480 Chest x-ray: XR/XR chest 2V IMPRESSION: No acute cardiopulmonary abnormality. Electronically signed by: Ethan Gore MD 07/31/2024 02:23 PM [facility] Lab Data 07/31/24 13:57 07/31/24 13:57 Labs: Lab Results 07/31/24 07/31/24 Range/Units 13:57 14:13 WBC 3.6 L (4.8-10.8) X10*3/uL RBC 3.29 L (4.20-5.50) X10*6/uL Hgb 10.0 L (12.0-16.0) g/dl Hct 29.7 L (37.0-47.0) % MCV 90.3 (80.0-98.0) fL MCH 30.4 (27.0-33.0) pg MCHC 33.7 (31.0-35.0) g/dl RDW 13.7 (11.0-16.0) % Plt Count 344 (160-400) X10*3/uL MPV 8.3 L (9.4-12.3) fL Immature Gran % (Auto) 0.3 (0.0-0.4) % Neut % (Auto) 65.2 (45-73) % Lymph % (Auto) 20.6 (20-40) % Glynn % (Auto) 11.0 (2-11) % Eos % (Auto) 2.3 (0-4) % Baso % (Auto) 0.6 (0-2) % Lymph # (Auto) 0.7 L (1.2-4.9) X10*3/uL Glynn # (Auto) 0.4 (0.1-1.2) X10*3/uL Eos # (Auto) 0.1 (0.0-0.4) X10*3/uL Baso # (Auto) 0.0 (0.0-0.2) X10*3/uL Abs Immat Gran (auto) 0.01 (0.00-0.03) X10*3/uL Absolute Neuts (auto) 2.3 (2.0-8.3) x10*3/uL Absolute Nucleated RBC 0.000 (0.0-0.012) X10*3/uL Nucleated RBC % (auto) 0.0 (0.0-0.2) /100WBC PT 11.3 (10.9-12.4) SEC INR 1.0 (0.9-1.1) Sodium 137 (135-145) mmol/L Potassium 3.4 D (3.3-5.1) mmol/L Chloride 108 (96-108) mmol/L Carbon Dioxide 21 L (22-29) mmol/L Anion Gap 11 L (12-20) BUN 8 L (9-16) mg/dL Creatinine 0.80 (0.5-1.4) mg/dL Estim Creat Clear Calc 81.8 Estimated GFR > 60 Random Glucose 90 (60-115) mg/dL Calcium 9.4 (8.4-10.2) mg/dL Total Bilirubin 0.4 (0.0-1.0) mg/dL AST 19 (5-31) U/L ALT 8 (0-31) U/L Alkaline Phosphatase 83 (39-117) U/L Troponin I High Sens < 2.7 (<3.5-17.0) ng/L Total Protein 8.0 (6.5-8.0) g/dL Albumin 4.2 (3.5-5.0) g/dL Beta HCG, Quant < 2 mIU/mL Influenza Type A (PCR) NEGATIVE (Negative) Influenza Type B (PCR) NEGATIVE (Negative) RSV RNA Qual (PCR) NEGATIVE (Negative) SARS-CoV-2 RNA (RT-PCR) NEGATIVE (Negative) Discharge Plan Discharge Clinical Impression: Chest pain Patient Disposition: Home, Self-Care Instructions: Noncardiac Chest Pain (ED) Additional Instructions: The discomfort that you have been experiencing is not consistent with cardiac pain. All of your screening labs including a cardiac enzymes were normal. You were screened for influenza, RSV and COVID, the viral panel was negative. There were no concerning changes on the EKG in the chest x-ray was clear. You need to follow up with your primary care provider for further assessment. Prescriptions: No Action ascorbate calcium (vitamin C) 500 mg tablet 500 mg PO BID Qty: 60 4RF cyanocobalamin (vitamin B-12) 1,000 mcg capsule 1,000 mcg PO DAILY Qty: 30 3RF hydrocortisone [Anusol-HC] 2.5 % cream with perineal applicator 1 appl FL BID-QID PRN (Reason: hemorrhoids) Qty: 30 3RF Rx Instructions: use as directed cholecalciferol (vitamin D3) 25 mcg (1,000 unit) capsule 25 mcg PO DAILY Qty: 30 2RF Vitamin Plus Low Iron 27 mg iron- 1 mg tablet 1 tab PO DAILY Qty: 60 0RF miconazole nitrate 2 % cream 1 appful vaginal BEDTIME 7 Days 0RF lidocaine [Lidoderm] 5 % adhesive patch,medicated 1 patch topical DAILY Qty: 15 0RF Rx Instructions: leave on most painful area for up to 12 hrs Vitamin Plus Low Iron 27 mg iron- 1 mg tablet 1 tab PO DAILY Qty: 30 11RF aspirin [Adult Aspirin Regimen] 81 mg tablet,delayed release (DR/EC) 81 mg PO DAILY docusate sodium 100 mg capsule 100 mg PO BEDTIME Qty: 30 3RF Stand Alone Forms: Work/School Release Print Language: Croatian
[2024-07-31 14:02] LABS: MANUAL DIFF FLAG NO
[2024-07-31 14:03] LABS: Basophils Percent Auto 0.6 % (0-2); Eosinophils Absolute Auto 0.1 X10*3/uL (0.0-0.4); Eosinophils Percent Auto 2.3 % (0-4); Hematocrit 29.7 % (37.0-47.0); Imm Gran Abs Auto 0.01 X10*3/uL (0.00-0.03); Imm Gran Pct Auto 0.3 % (0.0-0.4); Lymphocytes Absolute Auto 0.7 X10*3/uL (1.2-4.9); Lymphocytes Percent Auto 20.6 % (20-40); Mean Corpuscular HGB Conc 33.7 g/dl (31.0-35.0); Mean Corpuscular Hemoglobin 30.4 pg (27.0-33.0); Mean Corpuscular Volume 90.3 fL (80.0-98.0); Mean Platelet Volume 8.3 fL (9.4-12.3); Monocytes Absolute Auto 0.4 X10*3/uL (0.1-1.2); Neutrophils Absolute Auto 2.3 x10*3/uL (2.0-8.3); Neutrophils Percent Auto 65.2 % (45-73); Platelet Count 344 X10*3/uL (160-400); Red Blood Count 3.29 X10*6/uL (4.20-5.50); Red Cell Distribution Width 13.7 % (11.0-16.0); White Blood Count 3.6 X10*3/uL (4.8-10.8)
[2024-07-31 14:16] LABS: Alanine Aminotransferase 8 U/L (0-31); Albumin Level 4.2 g/dL (3.5-5.0); Alkaline Phosphatase 83 U/L (39-117); Anion Gap 11 (12-20); Aspartate Amino Transferase 19 U/L (5-31); Bilirubin Total 0.4 mg/dL (0.0-1.0); Blood Urea Nitrogen 8 mg/dL (9-16); Calcium 9.4 mg/dL (8.4-10.2); Carbon Dioxide 21 mmol/L (22-29); Chloride 108 mmol/L (96-108); Creatinine Clr Calc Pharmacy 81.8; Estimated Glomerular Filt Rate > 60; Glucose Random 90 mg/dL (60-115); Potassium 3.4 mmol/L (3.3-5.1); Sodium 137 mmol/L (135-145)
[2024-07-31 14:24] LABS: Prothrombin Time 11.3 SEC (10.9-12.4)
[2024-07-31 14:27] LABS: Troponin-I High Sensitivity < 2.7 ng/L (<3.5-17.0)
[2024-07-31 14:44] LABS: Influenza A PCR NEGATIVE (Negative); Influenza B PCR NEGATIVE (Negative); Resp Syncy Virus RNA Qual PCR NEGATIVE (Negative); SARS COV2 PCR INHOUSE NEGATIVE (Negative)
[2024-07-31 14:45] LABS: HCG Quantitative < 2 mIU/mL
--- OUTSIDE RECORDS SUMMARY | 2024-07-31 20:47 | XMS_ITS | Clinical Summary ---
Author Organization [employer] [facility] Address [address] [place] [address] [address] [place] [address] Care Team Providers Care Manager Statistical Name Role Phone Keeley Berrios MD Primary Care Provider +1- [phone] Allergies Active Allergy Reactions Criticality Noted Date Comments Prochlorperazine 07/11/2023 Other reaction(s): sweating, dizziness Medications Blood Pressure Monitor kitIndications:S tage 2 hypertension Check blood pressure twice a wee. Dx hypertension 1 kit 4 Active cholecalciferol (Vitamin D3) 1.25 MG (92346 UT) tabletIndication s:Vitamin D deficiency Take 1 tablet (50,000 Units) by mouth 1 (one) time per week. 12 tablet 4 Active ferrous sulfate 325 (65 Fe) MG EC tabletIndication s:Iron deficiency TAKE 1 TABLET BY MOUTH EVERY OTHER DAY ..DO NOT CRUSH, CHEW, SPLIT 30 tablet 3 4 Active senna (Senokot) 8.6 MG tabletIndication s:Iron deficiency Take 1 tablet (8.6 mg) by mouth at bedtime. 120 tablet 4 Active cholecalciferol (Vitamin D-3) 25 MCG (1000 UT) tabletIndication s:Vitamin D Deficiency Take 1 tablet (25 mcg) by mouth in the morning. 90 tablet 3 4 025 Active losartan-hydroCH LOROthiazide (Hyzaar) 100-25 MG tabletIndication s:Stage 2 hypertension Take 1 tablet by mouth in the morning. 30 tablet 11 4 025 Active cholecalciferol (Vitamin D-3) 25 MCG (1000 UT) tabletIndication s:Vitamin D Deficiency Take 1 tablet (25 mcg) by mouth in the morning. 90 tablet 3 4 025 Active Active Problems Problem Noted Date Diagnosed Date Chest pain 07/31/2024 Dyslipidemia 09/27/2023 Overview (09/27/2023): Lab Results Component Value Date CHOL 164 07/16/2023 CHOL 165 01/11/2023 TRIG 55 07/16/2023 TRIG 50 01/11/2023 HDL 61 07/16/2023 HDL 55 01/11/2023 LDLCHOLCAL 92 07/16/2023 LDLCHOLCAL 100 01/11/2023 -continue lifestyle modification Hemorrhoids 09/27/2023 Overview (09/27/2023): -Referral for hemorrhoid removal Assessment & Plan (09/27/2023 10:50 AM EDT): -Referral for hemorrhoid removal Anxiety 07/11/2023 07/11/2023 History of section 07/11/202306/19 History of delivery 07/11/202306/19 Preeclampsia in period 07/11/2023 07/11/2023 Preventative health care 12/18/2022 Overview (09/27/2023): -next physical exam due after 01/27/2024 -eye care facilitated by [facility], referral done 12/21/2022 -dental home is [facility]. -Health care proxy given 09/27/2023 Assessment & Plan (09/27/2023 10:48 AM EDT): -next physical exam due after 01/27/2024 -eye care facilitated by [facility], referral done 12/21/2022 -dental home is [facility]. -Health care proxy given 09/27/2023 Assessment & Plan (12/21/2022 10:08 AM EDT): -next physical exam due after 12/22/2023 -eye care facilitated by [facility], referral done 12/21/2022 -dental home is [facility]. Acquired hypothyroidism 10/11/2022 Overview (09/27/2023): TSH wass elevated at 42.59 with a low free T4 0.2 on 02/2022. -Levothyroxine 25mcg tab started on 03/08/2022 pt self discontinue with subsequent normal TSH. Lab Results Component Value Date TSH 3.13 07/16/2023 TSH 3.91 01/11/2023 Pt has been off rx for several months prior to last TSH reading. Medication not restarted. -continue to monitor THS 1 q 6 months or if symptomatic Assessment & Plan (09/27/2023 10:33 AM EDT): TSH wass elevated at 42.59 with a low free T4 0.2 on 02/2022. -Levothyroxine 25mcg tab started on 03/08/2022 pt self discontinue with subsequent normal TSH. Lab Results Component Value Date TSH 3.13 07/16/2023 TSH 3.91 01/11/2023 Pt has been off rx for several months prior to last TSH reading. Medication not restarted. -continue to monitor THS 1 q 6 months or if symptomatic Assessment & Plan (07/11/2023 6:46 PM EST): TSH wass elevated at 42.59 with a low free T4 0.2 on 02/2022. -Levothyroxine 25mcg tab started on 03/08/2022. -Advised take on empty stomach same time every day. Lab Results Component Value Date TSH 3.91 01/11/2023 Pt has been off rx for several months. Recheck TSH Assessment & Plan (12/21/2022 9:12 AM EDT): TSH is elevated at 42.59 with a low free T4 0.2 on 02/2022. -Levothyroxine 25mcg tab started on 03/08/2022. -Advised take on empty stomach same time every day. Cobalamin deficiency 10/11/2022 Positive RPR test 10/11/2022 Overview (09/27/2023): Titer 1 to 1 she denies Hx of syphilis. Syphilis testing non reactive Assessment & Plan (09/27/2023 10:34 AM EDT): Titer 1 to 1 she denies Hx of syphilis. Syphilis testing non reactive Assessment & Plan (12/21/2022 9:12 AM EDT): Titer 1 to 1 she denies Hx of syphilis. -Awaiting confirmatory testing. History of pre-eclampsia 10/11/2022 Stage 2 hypertension 10/11/2022 Overview (09/27/2023): Severe with episodes of high bp with sweating and headache. -Urine metanephrine were normal on 04/2022. -BP well controlled at home on enalapril 5mg daily prescribed by Attendance Secretary discontinue when she was in hospital in [place] 08/2021 with subsequent high Bps at home as high as 190 -continue hydrochlorothiazide valsartan 100/25 one tab po daily -referral to nephrology placed 07/11/23 Assessment & Plan (09/27/2023 10:32 AM EDT): Severe with episodes of high bp with sweating and headache. -Urine metanephrine were normal on 04/2022. -BP well controlled at home on enalapril 5mg daily prescribed by Attendance Secretary discontinue when she was in hospital in [place] 08/2021 with subsequent high Bps at home as high as 190 -continue hydrochlorothiazide valsartan 100/25 one tab po daily -referral to nephrology placed 07/11/23 Assessment & Plan (12/21/2022 9:12 AM EDT): Severe with episodes of high bp with sweating and headache. Need to r/o secondary causes of HTN Restart enalapril 5mg daily prescribed by Attendance Secretary -Urine metanephrine were normal on 04/2022. -BP well controlled at home. Depression 09/10/2013 Vitamin D deficiency 09/10/2013 Overview (09/27/2023): Lab Results Component Value Date [id number] 5.7 (L) 07/16/2023 -Vit D was 12 on 02/2022. -Vit D 50,000 started 03/08/2022 -restart weekly vit D for 2 months and then switch to daily Assessment & Plan (09/27/2023 11:01 AM EDT): Lab Results Component Value Date [id number] 5.7 (L) 07/16/2023 Assessment & Plan (12/21/2022 9:13 AM EDT): Vit D was 12 on 02/2022. Vit D 50,000 started 03/08/2022. 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 -Will trial wrist splints and if no improvement advised to call for occupational therapy referral. 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 -Will trial wrist splints and if no improvement advised to call for occupational therapy referral. Back pain 12/21/2022 07/11/2023 Overview (12/21/2022): Likely musculoskeletal. Non-focal, normal motor exam without neurological deficits. No back pain red-flags: bowel/bladder incontinence, IVDU, urinary retention, saddle anesthesia, and significant motor deficits. -Recommend ibuprofen and muscle relaxer prn. Physical therapy referral offered. -Acupuncture clinic offered. -Lifting precaution sand stretching reviewed. -ER precaution discussed. Assessment & Plan (12/21/2022 10:10 AM EDT): .Likely musculoskeletal. Non-focal, normal motor exam without neurological deficits. No back pain red-flags: bowel/bladder incontinence, IVDU, urinary retention, saddle anesthesia, and significant motor deficits. -Recommend ibuprofen and muscle relaxer prn. Physical therapy referral offered. -Acupuncture clinic offered. -Lifting precaution sand stretching reviewed. -ER precaution discussed. Nausea and vomiting 10/12/2022 12/19/19 23 Overview (10/12/2022): Resolved. Assessment & Plan (10/12/2022 1:53 PM EDT): Resolved. Prehypertension 10/11/2022 10/12/2022 Encounters Date Type Department Care Team Description 07/31/2024 1:00 PM EST Office Visit [facility] [address] [place] [id number] Keeley Berrios MD Chest pain, unspecified type (Primary Dx); SOB (shortness of breath) 07/31/[address] [facility] [address] [place] [address] [phone] Blanca Olivarez RN Nurse Triage 07/31/[address] [facility] [address] [place] [address] [phone] Keeley Berrios MD Nurse Triage from Last 3 Months Immunizations Name Administration Dates Next Due Hep B, adult 12/21/2022,03/02/2022,04/23/2014 Influenza, IIV3, injectable 06/19/2013 Tdap 09/09/2021,10/29/2015,09/10/2013 Family History Medical History Relation Name Comments parapelegia Brother Diabetes Mother Hypertension Mother Relation Name Status Comments Brother Mother Social History Tobacco Use Types Packs/Day Years Used Date Smoking Tobacco: Never Passive Smoke Exposure: Never Smokeless Tobacco: Never Tobacco Cessation:Counseling Given: Not Answered Alcohol Use Standard Drinks/Week Comments Never 0 (1 standard drink = 0.6 oz pur e alcohol) Depression Answer Date Recorded Patient Health Questionnaire-9 Score 0 12/21/2022 Housing Stability Answer Date Recorded What is your housing situation today? I have shanelle green 04/16/[address] you li ve. Do you have problems with any of the following? None of the above 04/16/2023 Food Insecurity Answer Date Recorded Within the past 12 months, y ou worried that your food would run out before you got money to buy more: Never True 04/16/2023 Within the past 12 months,th e food you bought just didn't last and you didn't have enough money to get more: Never True Transportation Answer Date Recorded In the past 12 months, has l ack of transportation kept you from medical appts, meetings, work or from getting things needed for daily living? No 04/16/2023 Utilities Answer Date Recorded In the past 12 months, has t he electric, gas, oil or water company threatened to shut off services in your home? No 04/16/2023 Depression Answer Date Recorded Patient Health Questionnaire-2 Score 0 12/21/2022 Comments No Sex and Gender Information Value Date Recorded Sex Assigned at Female 04/17/2022 10:18 AM EDT Legal Sex Female 10:18 AM EDT Gender Identity Female 04/17/2022 10:18 AM EDT Sexual Orientation Don't know 04/17/2022 10 :18 AM EDT Last Filed Vital Signs Vital Sign Reading Time Taken Comments Blood Pressure 150/98 07/31/2024 12:59 PM EST Pulse 102 07/31/2024 12:49 PM EST Temperature 37.2 ??C (99 ??F) 07/31/2024 12:49 PM EST Respiratory Rate 21 07/31/2024 12:49 PM EST Oxygen Saturation 97% 07/31/2024 12:49 PM EST Inhaled Oxygen Concentration - - Weight 60.8 kg (134 lb) 07/31/2024 12:49 PM EST Height 157.5 cm (5' 2 ) 07/31/2024 12:49 PM EST Body Mass Index 24.51 07/31/2024 12:49 PM EST Plan of Treatment Health Maintenance Due Date Last Done Comments Alcohol/Substance Use Screening 1998 Family Planning (PISQ) 2001 Depression Screening 12/22/2023 12/21/2022, 12/22/19 SDOH Screening 12/22/2023 12/21/2022 COVID-19 Vaccine ( season) 2024 02/23/2021, 02/04/2021, 02/02/2021 Influenza Vaccine (#1) 2024 06/19/2013 Tobacco Screening 07/31/2025 07/31/2024 Cervical Cancer Screening 09/08/2025 HPV/Cotest 09/08/2025 Pap Smear 09/08/2025 09/08/2020 Lipid Panel 07/16/2028 07/16/2023, 0712/2022, 03/03/2022, Additional history exists DTaP/Tdap/Td Vaccines (4 - Td or Tdap) 09/10/2031 09/09/2021, 10/29/2015, 09/10/2013 Zoster Vaccines (1 of 2) 02/04/2036 RSV Patients and Patients Aged 60 years or older (1 - 1-dose 75+ series) 2061 HIV Screening Completed 03/03/2022, 02/25/2021 Hepatitis C Screening Completed 03/03/2022 , 03/03/2022, 02/25/2021 Hepatitis B Vaccines Completed 12/21/2022, 03/02/2022, 04/23/2014 HIB Vaccines Aged Out No longer eligi ble based on patient's age to complete this topic HPV Vaccines Aged Out No longer eligi ble based on patient's age to complete this topic Hepatitis A Vaccines Aged Out No long er eligible based on patient's age to complete this topic IPV Vaccines Aged Out No longer eligi ble based on patient's age to complete this topic Meningococcal Vaccine Aged Out No josué bertha eligible based on patient's age to complete this topic Pneumococcal Vaccine: Pediatrics (0 to 5 Years) and At-Risk Patients (6 to 49) Years) Aged Out No longer eligible based on patient's age to complete this topic RSV under 20 months Aged Out No longe r eligible based on patient's age to complete this topic Rotavirus Vaccines Aged Out No longer eligible based on patient's age to complete this topic Procedures Procedure Name Priority Date/Time Associated Diagnosis Comments ECG 12-LEAD Routine 07/31/2024 1:09 PM EST Chest pain, unspecified type SOB (shortness of breath) LIPID PANEL, STANDARD Routine 07/16/2023 10:02 AM EST Stage 2 hypertension ZZZ HISTORICAL HEPATITIS C AB W/REFL TO HCV RNA, QN, PCR Routine 03/03/2022 10:43 AM EDT HIV 1/2 ANTIGEN/ANTIBODY, FOURTH GENERATION W/RFL Routine 03/03/2022 10:43 AM EDT PAP SMEAR Routine 09/08/2020 12:00 AM EDT from Last 3 Months or Most Recently Relevant to Health Maintenance Results * ECG 12 lead (07/31/2024 1:09 PM EST) Narrative Keeley Berrios MD - 07/31/2024 1:09 PM EST 103 bpm, RSR in V1-V2 consider ischemia, LV overload. Keeley Berrios MD ECG ORDERABLES Final Resu lt * Lipid Panel, Standard (07/16/2023 10:02 AM EST) Triglycerides 55 <150 mg/dL [facility] Comment:Desirable Triglyceri de: less than 150 mg/dLBorderline High Triglyceride 150-199 mg/dLHigh Triglyceride: 200-499 mg/dLVery High Triglyceride: greater than or equal to 5OO mg/dL Cholesterol 164 <200 mg/dL [facility] Comment:Desirable Cholestero l: less than 200 mg/dLBorderline High Cholesterol: 200-239 mg/dLHigh Cholesterol: greater than 239 mg/dL LDL Cholesterol Calculated 92 <100 mg/dL [facility] Comment:Desirable LDL: less than 100 mg/dLNear Optimal/Above Optimal LDL: 110- 129 mg/dLBorderline High LDL: 130-159 mg/dLHigh LDL: 160-189 mg/dLVery High LDL: greater than or equal to 190 mg/dL HDL Cholesterol 61 >40 mg/dL [facility] Comment:Desirable HDL: great er than 40 mg/dL Note: This HDL assay may give artificially low results in patients with liver disease. Blood Venous blood specimen / Unknown 07/16/2023 10:02 AM EST 07/16/2023 11:14 AM EST Keeley Berrios MD LAB BLOOD ORDERABLES Final Result [facility] [address] [place] [address] [phone] * HEPATITIS C AB W/REFL TO HCV RNA, QN, PCR (03/03/2022 10:43 AM EDT) HEPATITIS C ANTIBODY NON-REACT WARNER NON-REACT WARNER [facility] INDEX 0.12 <1.00 [facility] Comment: ?? HCV antibody was non-reactive. There is no laboratory ?? evidence of HCV infection. ?? In most cases, no further action is required. However, if recent HCV exposure is suspected, a test for HCV RNA (test code 18101) is suggested. ?? For additional information please refer to http://[employer]/faq/FQC34r8 (This link is being provided for informational/ educational purposes only.) ?? 03/03/2022 10:4 3 AM EDT us Keeley Berrios MD HISTORICAL/NON ORDERABLE L ABS Final Result [facility] [address] * HIV 1/2 ANTIGEN/ANTIBODY,FOURTH GENERATION W/RFL (03/03/2022 10:43 AM EDT) HIV-1/2 ANTIGEN AND ANTIBODIES, 4TH GENERATION W/ REFLEX NON-REACT WARNER NON-REACT WARNER [facility] Comment: HIV-1 antigen and HIV-1/HIV-2 antibodies were not detected. There is no laboratory evidence of HIV infection. ?? PLEASE NOTE: This information has been disclosed to you from records whose confidentiality may be protected by state law. ??If your state requires such protection, then the state law prohibits you from making any further disclosure of the information without the specific written consent of the person to whom it pertains, or as otherwise permitted by law. A general authorization for the release of medical or other information is NOT sufficient for this purpose. ? For additional information please refer to http://[employer]/faq/NCG067 (This link is being provided for informational/ educational purposes only.) ? The performance of this assay has not been clinically validated in patients less than 2 years old. ?? 03/03/2022 10:4 3 AM EDT us Keeley Berrios MD LAB BLOOD ORDERABLES Final Result [facility] [address] * Pap Smear (09/08/2020 12:00 AM EDT) Swab us Historical Provider LAB CYTOLOGY ORDERABLES F inal Result IMAGING from Last 3 Months or Most Recently Relevant to Health Maintenance Insurance [employer] Care Teams Manager Statistical Relationship Specialty Start Date End Date Keeley Berrios MD [address] [place] [phone] PCP - General Family Medicine 10/14/20
--- OUTSIDE RECORDS SUMMARY | 2024-07-31 20:47 | XMS_ITS | Clinical Summary ---
Author Organization [facility] Address [address] [place] [address] Care Team Providers Care Marine Specialist Name Role Phone Unavailable Primary Care Provider Unavailabl e Source Comments PLEASE NOTE, if this patient is a minor, it may be UNLAWFUL to discuss sensitive information that is contained in these records (such as FAMILY PLANNING, MENTAL HEALTH or SUBSTANCE ABUSE) with the minor patient's parent or other person without the patient's specific authorization.[facility] Immunizations Name Administration Dates Next Due PFIZER COVID VACCINE, PURPLE CAP, 12+ 02/23/2021 ,02/02/2021 Social History Tobacco Use Types Packs/Day Years Used Date Smoking Tobacco: Never Assessed Social Connections Answer Date Recorded Social Connections and Isolation 0 02/02/2021 Financial Resource Strain Answer Date R ecorded Financial Resource Strain 0 2020 Stress Answer Date Recorded Stress 0 02/02/2021 Physical Activity Answer Date Recorded Physical Activity 0 02/02/2021 Food Insecurity Answer Date Recorded Food 0 02/02/2021 Transportation Needs Answer Date Record ed Transportation 0 02/02/2021 Housing Stability Answer Date Recorded Housing 0 02/02/2021 Safety and Environment Answer Date Tommie rded Safety 0 02/02/2021 Utilities Answer Date Recorded Utilities 0 02/02/2021 Employment Answer Date Recorded Employment 0 02/02/2021 Comments Unknown Sex and Gender Information Value Date Recorded Sex Assigned at Not on file Legal Sex Female 12:04 PM PDT Gender Identity Not on file Sexual Orientation Not on file Plan of Treatment Health Maintenance Due Date Last Done Comments Diabetes Screening 1986 HPV Screening 1986 Hepatitis C Screening 1986 Pap + HPV 1986 Tobacco Screening 1986 HIV Screening 2001 Relationship Safety Screening/Counseling 2001 Hypertension Screening (#1) 02/04/2004 Imm-Hepatitis B (1 of 3 - 19 + 3-dose series) 2005 Cervical Cancer Screening 2007 Pap Smear 2007 Imm-DTaP/Tdap/Td (2 - Td or Tdap) 09/11/2023 014 [id number] (3 - season) 2024 021, 02/02/2021 Imm-Influenza (#1) 2024 06/19/2013 Alcohol and Drug Screen 06/18/2024 Depression Annual Screen 06/18/2024 Cervical Ablation/Cold-Knife Conization Discontinued Cervical Cryotherapy Discontinued Colposcopy Discontinued Endometrial Biopsy Discontinued Excision/Leep Discontinued HPV Genotyping Discontinued Vaginal Pap Discontinued Vulvoscopy Discontinued Insurance [address] [employer]
--- OUTSIDE RECORDS SUMMARY | 2024-07-31 20:47 | XMS_ITS | Encounter Summary ---
Author Organization [employer] [facility] Address [address] [place] [address] Care Team Providers Care Coin Machine Servicer Repairer Name Role Phone Keeley Berrios MD Primary Care Provider +1- [phone] Encounter Details Date Type Department Care Team (Late st Contact Info) Description 07/25/2022 Abstract [facility] [address] [place] [address] Keeley Berrios MD [address] [place], [place] [phone] Social History Tobacco Use Types Packs/Day Years Used Date Smoking Tobacco: Never Assessed Comments Unknown Sex and Gender Information Value Date Recorded Sex Assigned at Female 04/17/2022 10:18 AM EDT Legal Sex Female 10:18 AM EDT Gender Identity Female 04/17/2022 10:18 AM EDT Sexual Orientation Don't know 04/17/2022 10 :18 AM EDT COVID-19 Exposure Response Date Recorded In the last 10 days, have yo u been in contact with someone who was confirmed or suspected to have Coronavirus/COVID-19? No / Unsure 07/21/2022 10:40 AM EST documented as of this encounter Plan of Treatment Not on file documented as of this encounter Procedures Procedure Name Priority Date/Time Associated Diagnosis Comments PAP SMEAR Routine 09/08/2020 12:00 AM EDT documented in this encounter Results * Pap Smear (09/08/2020 12:00 AM EDT) Swab us Historical Provider LAB CYTOLOGY ORDERABLES F inal Result IMAGING documented in this encounter Visit Diagnoses Not on filedocumented in this encounter Care Teams Coin Machine Servicer Repairer Relationship Specialty Start Date End Date Keeley Berrios MD [address] [place] [phone] PCP - General Family Medicine 10/14/20 documented as of this encounter
--- OUTSIDE RECORDS SUMMARY | 2024-07-31 20:47 | XMS_ITS | Encounter Summary ---
Author Organization [employer] Address [address] [facility] [address] [place] [address] Care Team Providers Care Rouge Sifter Name Role Phone Keeley Berrios MD Primary Care Provider [phone]- [phone] Reason for Visit * Reason Comments Chest Pain Shortness of Breath Encounter Details Date Type Department Care Team ([facility] st Contact Info) Description 07/31/2024 1:00 PM EST Office Visit [facility] [address] [place], [place] [phone] Keeley Berrios MD [address] [place], [place] [phone] Chest pain, unspecified type (Primary Dx); SOB (shortness of breath) Social History Tobacco Use Types Packs/Day Years [...] Don't know 04/17/2022 10 :18 AM EDT documented as of this encounter Last Filed Vital Signs Vital Sign Reading [...] Mass Index 24.51 07/31/2024 12:49 PM EST documented in this encounter Progress Notes * Luis Childers - 07/31/2024 1:00 PM EST Subjective Patient ID: Stephanie Leyva is a 39 y.o. female with past medical history of anemia, pre-eclampsia,and hypertension who presents to walk in clinic for Chest Pain and Shortness of Breath. PT is well known to me and is at baseline quite stoic and rarely complains. Today she presents in distress reporting she has been having chest pain, severe tearing back pain, headache since she was returning on a plane Sunday at 1:00am. She woke in the middle of the flight with SOB and chest pain associated sweating, feeling like her soul had left her body , tingling and dizziness. Since that time she has felt chest pain and now pain in her back tearing that radiates down her legs. Pt reports episodes of chest pain that last about 2 min. She reports also having pain from her back don to her legs feeling like electricity. Pt notes she is spotting and denies any chance of . During the visit she became more distressed with headache, tachacardia and increased blood pressure. EMS called. Review of Systems Constitutional: Negative for fever and unexpected weight change. Respiratory: Positive for shortness of breath. Cardiovascular: Positive for chest pain. Gastrointestinal: Positive for abdominal pain. Genitourinary: Negative for difficulty urinating. Objective Visit Vitals BP (!) 150/98 Pulse 102 Temp 99 ??F (37.2 ??C) (Oral) Resp 21 Body mass index is 24.51 kg/m??. Physical Exam Constitutional: Appearance: Normal appearance. She is diaphoretic. Cardiovascular: Rate and Rhythm: Regular rhythm. Tachycardia present. Heart sounds: Normal heart sounds. Pulmonary: Effort: Pulmonary effort is normal. Prolonged expiration (in right lower lobe) present. Breath sounds: Normal breath sounds. Abdominal: General: Abdomen is flat. Palpations: Abdomen is soft. Tenderness: There is no abdominal tenderness. Musculoskeletal: Cervical back: Normal range of motion and neck supple. Neurological: General: No focal deficit present. Mental Status: She is alert. Psychiatric: Behavior: Behavior normal. Problem List Items Addressed This Visit Chest pain - Primary Relevant Orders ECG 12 lead (Completed) Other Visit Diagnoses SOB (shortness of breath) Relevant Orders ECG 12 lead (Completed) Complains of chest pain and SOB after being on an airplane. -Appears uncomfortable, diaphoretic, tachycardic and SOB. -Exam prolonged expiration in right lower lobe on exam. Hypertensive. Additionally reports tearing pain down back. -103 bpm, RSR in V1-V2 consider ischemia, LV overload. -Will call an ambulance transport pt directly to the Emergency Department. I, Luis Childers, am serving as a scribe to document services personally performed by Dr. Vargas, based on the patient's response to questions by provider and providers statements to me. documented in this encounter Plan of Treatment Not on file documented as of this encounter Procedures Procedure Name Priority Date/Time Associated Diagnosis Comments ECG 12-LEAD Routine 07/31/2024 1:09 PM EST Chest pain, unspecified type SOB (shortness of breath) documented in this encounter Results * ECG 12 lead (07/31/2024 1:09 PM EST) Narrative Keeley Berrios MD - 07/31/2024 1:09 PM EST 103 bpm, RSR in V1-V2 consider ischemia, LV overload. Keeley Berrios MD ECG ORDERABLES Final Resu lt documented in this encounter Visit Diagnoses Diagnosis Chest pain, unspecified type- Primary SOB (shortness of breath) Shortness of breath documented in this encounter Additional Health Concerns Assessment Noted Time PHQ-9 Depression Total Score: 0 12/22/19 23 9:39 AM EDT documented as of this encounter Care Teams Rouge Sifter Relationship Specialty Start Date End Date Keeley Berrios MD [address] [place] [address] PCP - General Family Medicine 10/14/20 documented as of this encounter
--- OUTSIDE RECORDS SUMMARY | 2024-07-31 20:47 | XMS_ITS | Encounter Summary ---
Author Organization [facility] Address [address] [facility] 7t [place] [address] Care Team Providers Care Buyer Grain Name Role Phone Keeley Berrios MD Primary Care Provider [phone]- [phone] Reason for Visit * Reason Onset Date Comments Nurse Triage 07/31/2024 Encounter Details Date Type Department Care Team (Late st Contact Info) Description 07/31/2024 Telephone [facility] [address] [place] [address] Blanca Olivarez RN Nurse Triage Social History Tobacco Use Types Packs/Day Years Used Date Smoking Tobacco: Never Passive Smoke Exposure: Never Smokeless Tobacco: Never Alcohol Use Standard Drinks/Week Comments Never 0 (1 standard drink = 0.6 oz pur e alcohol) Depression Answer Date Recorded Patient Health Questionnaire-9 Score 0 12/21/2022 Housing Stability Answer Date Recorded What is your housing situation today? I have [place] green 04/16/[address] you [...] AM EDT documented as of this encounter Miscellaneous Notes * Telephone Encounter - Blanca Olivarez RN - 07/31/2024 1:03 PM EST sample coordinator This RN was called into patient room by BINU [facility] for patient report of chest pain and SOB. Upon initial assessment patient in distress, diaphoretic. Initial BP by BINU 155/111. Re-check 150/98. EKG obtained. Dr. Berrios in patient room at this time. Handed to Dr. Berrios for interpretation. Of note, patient reports she recently had long flight from [facility] Sunday into Sunday. On this flight she was woke up by her symptoms - SOB, chest pain. She reports she felt like her soul left her body. She reports she had ice chips and washed her face with cold water and her symptoms eventually resolved. 1300 Patient reporting increasing left chest and back pain. Reports she feels SOB. 2L NC applied. Patient tachycardic 100s-110s. Patient to go to ED to receive further evaluation per Dr. Berrios. 1302 EMS called at 1309 EMS arrival at Report to EMS by Dr. Berrios Patient to be transported to [facility] [place] [place] ED Blanca Olivarez RN documented in this encounter Plan of Treatment Not on file documented as of this encounter Visit Diagnoses Not on filedocumented in this encounter Additional Health Concerns Assessment Noted Time PHQ-9 Depression Total Score: 0 12/22/19 23 9:39 AM EDT documented as of this encounter Care Teams Buyer Grain Relationship Specialty Start Date End Date Keeley Berrios MD [address] [place] [address] PCP - General Family Medicine 10/14/20 documented as of this encounter
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
--- OUTSIDE RECORDS SUMMARY | 2024-07-31 20:47 | XMS_ITS | Clinical Summary ---
Author Organization [facility] Address [address] [place] [address], [place] [address] Care Team Providers Care Marketing Information Analyst Name Role Phone Thurston, Keeley Owens MD Primary Care Provider U navailable Social History Tobacco Use Types Packs/Day Years Used Date Smoking Tobacco: Never Assessed Comments Unknown Sex and Gender Information Value Date Recorded Sex Assigned at Not on file Legal Sex Female 10:28 AM EDT Gender Identity Not on file Sexual Orientation Not on file Plan of Treatment Health Maintenance Due Date Last Done Comments Hepatitis B Vaccine (1 of 3 - 19+ 3-dose series) 2005 Influenza Vaccine (#1) 2024 Pneumococcal Vaccine: Pediat rics (0 to 5 Years) and At-Risk Patients (6 to 64 Years) Aged Out No longer eligi ble based on patient's age to complete this topic [place] Care Teams Marketing Information Analyst Relationship Specialty Start Date End Date Keeley Berrios MD PCP - General Family Medicine 03/13/22
[2024-07-31 22:33] VITALS: BP 133/89; PULSE 81; RESP 16; TEMP 36.8; O2SAT 98
== END 2024-07-31 22:35 | disposition home or self-care (01) ==
PROVIDERS: Registered Nurse Emergency; Emergency Provider Emergency Medicine
DX: R07.89 Other chest pain (principal); R06.02 Shortness of breath; Z03.818 Encounter for observation for suspected exposure to other biological agents ruled out; Z79.899 Other long term (current) drug therapy
CPT/HCPCS: 0241U; 36415; 71046; 80053; 84484; 84702; 85025; 85610; 93005; 99283; 99284

== ENCOUNTER → 2024-07-31 13:51 | Outpatient (BNV) | payer MEDICAID, SELFPAY | PROVIDERS: Visit Provider Internal Medicine Cardiovascular Disease | DX: R94.31 Abnormal electrocardiogram [ECG] [EKG] (principal); R07.9 Chest pain, unspecified | CPT/HCPCS: 93010 ==

== ENCOUNTER → 2024-07-31 14:05 | Outpatient (BNV) | payer MEDICAID, SELFPAY | PROVIDERS: Visit Provider Radiology Diagnostic Radiology | DX: R07.9 Chest pain, unspecified (principal) | CPT/HCPCS: 71046 ==

== ENCOUNTER 2024-08-28 11:44 | Outpatient (REF) | payer MEDICAID, SELFPAY ==
[2024-08-28 12:17] LABS: MANUAL DIFF FLAG NO
[2024-08-28 12:52] LABS: Basophils Percent Auto 0.5 % (0-2); Eosinophils Absolute Auto 0.1 X10*3/uL (0.0-0.4); Hemoglobin 9.7 g/dl (12.0-16.0); Imm Gran Abs Auto 0.01 X10*3/uL (0.00-0.03); Imm Gran Pct Auto 0.3 % (0.0-0.4); Lymphocytes Absolute Auto 1.7 X10*3/uL (1.2-4.9); Lymphocytes Percent Auto 42.2 % (20-40); Mean Corpuscular HGB Conc 31.3 g/dl (31.0-35.0); Mean Corpuscular Hemoglobin 29.5 pg (27.0-33.0); Mean Corpuscular Volume 94.2 fL (80.0-98.0); Mean Platelet Volume 9.1 fL (9.4-12.3); Monocytes Absolute Auto 0.3 X10*3/uL (0.1-1.2); Monocytes Percent Auto 7.4 % (2-11); Neutrophils Absolute Auto 1.9 x10*3/uL (2.0-8.3); Neutrophils Percent Auto 47.6 % (45-73); Platelet Count 396 X10*3/uL (160-400); Red Blood Count 3.29 X10*6/uL (4.20-5.50); Red Cell Distribution Width 14.1 % (11.0-16.0); White Blood Count 3.9 X10*3/uL (4.8-10.8)
[2024-08-28 13:26] LABS: Iron 53 mcg/dL (30-160); Percent Iron Saturation 14 % (15-50); Total Iron Binding Capacity 373 mcg/dL (228-428); Unsaturated Iron Binding 320 ug/dL
[2024-08-28 13:40] LABS: Ferritin 5 ng/mL (10-122)
[2024-08-28 13:54] LABS: Folate 16.1 ng/mL (> or = 4.0); Vitamin B12 238 pg/mL (200-900)
--- OUTSIDE RECORDS SUMMARY | 2024-08-28 15:09 | XMS_ITS | Encounter Summary ---
Author Organization [facility] Address [address] [facility] 7t [place] [address] Care Team Providers Care Other Sports Coach Or Instructor Name Role Phone Keeley Berrios MD Primary Care Provider +1- [phone] Reason for Referral * Consultation (Routine) - Authorized Specialty Diagnoses / Procedures Referred By Mukul snell Referred To Contact Gastroenterology Diagnoses Anemia due to other cause, not classified BRBPR (bright red blood per rectum) Simone Sandoval MD [address] [place] [address] Phone: tel: fax: [facility] Gastroenterology [address] 3[address] [place], [place] Phone: tel: fax: Referral ID Status Reason Start Date Expiration Date Visits Requested Visits Authorized [id number] Authorized Specialty Services Required 08/02/2024 08/02/2025 6 6 * Consultation (Routine) - Authorized Specialty Diagnoses / Procedures Referred By Mukul snell Referred To Contact Nephrology Diagnoses Stage 2 hypertension Simone Sandoval MD [address] [place] [address] Phone: tel: fax: [facility] [address] [place], [place] Phone: tel: fax: Referral ID Status Reason Start Date Expiration Date Visits Requested Visits Authorized [id number] Authorized Specialty Services Required 08/02/2024 08/02/2025 1 1 * Consultation (Routine) - Canceled Specialty Diagnoses / Procedures Referred By Mukul snell Referred To Contact Obstetrics and Gynecology Diagnoses Anemia due to other cause, not classified Simone Sandoval MD [address] [place] [address] Phone: tel: fax: [address] Phone: tel: fax: Referral ID Status Reason Start Date Expiration Date Visits Requested Visits Authorized [id number] Canceled Specialty Services Required 08/02/2024 08/02/2025 9 9 Reason for Visit * Reason Comments Walk-In HTN and headache see n in ED 07/31/24 not taking meds; pt reports now having runny nose, wants to be tested for for covid and flu Encounter Details Date Type Department Care Team (Late st Contact Info) Description 08/02/2024 9:00 AM EST Office Visit [facility] [address] [place] [address] [phone] Simone Sandoval MD [address] [place] [address] [phone] Influenza A (Primary Dx); Stage 2 hypertension; Runny nose; Anemia due to other cause, not classified; BRBPR (bright red blood per rectum) Social History Tobacco Use Types Packs/Day Years [...] Sign Reading Time Taken Comments Blood Pressure 110/84 08/02/2024 9:01 AM EST Pulse 93 08/02/2024 9:01 AM EST Temperature 37.1 ??C (98.7 ??F) 08/02/2024 9:01 AM ES T Respiratory Rate 20 08/02/2024 9:01 AM EST Oxygen Saturation 99% 08/02/2024 9:01 AM EST Inhaled Oxygen Concentration - - Weight 59.1 kg (130 lb 6.4 oz) 08/02/2024 9:01 A M EST Height 157.5 cm (5' 2 ) 08/02/2024 9:01 AM EST Body Mass Index 23.85 08/02/2024 9:01 AM EST documented in this encounter Progress Notes * Simone Gallego MD - 08/02/2024 9:00 AM EST SUBJECTIVE Stephanie Leyva is a 39 y.o. female who presents for Walk-In (HTN and headache seen in ED 07/31/24 not taking meds; pt reports now having runny nose, wants to be tested for for covid and flu ). Pt here with c/o rhinorea Review of Systems Constitutional: Negative for fever. HENT: Positive for congestion and rhinorrhea. Negative for sore throat. Respiratory: Negative for cough and shortness of breath. Cardiovascular: Negative for chest pain. Gastrointestinal: Negative for abdominal pain. Neurological: Negative for headaches. Allergies Allergen Reactions Prochlorperazine Other reaction(s): sweating, dizziness OBJECTIVE Vitals: 08/02/24 0901 BP: 110/84 BP Location: Left arm Patient Position: Sitting BP Cuff Size: Adult Pulse: 93 Resp: 20 Temp: 98.7 ??F (37.1 ??C) TempSrc: Oral SpO2: 99% Weight: 130 lb 6.4 oz (59.1 kg) Height: 5' 2 (1.575 m) Physical Exam Vitals reviewed. Constitutional: Appearance: Normal appearance. HENT: Head: Normocephalic and atraumatic. Right Ear: External ear normal. Left Ear: External ear normal. Nose: Nose normal. Mouth/Throat: Mouth: Mucous membranes are moist. Eyes: Conjunctiva/sclera: Conjunctivae normal. Cardiovascular: Rate and Rhythm: Normal rate and regular rhythm. Pulmonary: Effort: Pulmonary effort is normal. Breath sounds: Normal breath sounds. Skin: General: Skin is warm. Neurological: Mental Status: She is alert. Mental status is at baseline. Assessment/Plan Problem List Items Addressed This Visit Influenza A - Primary New onset of rhinorrhea, no cough, no sob, no difficulty breathing Testing for Flu POSITIVE Plan: Tamiflu, contact precautions discussed. Supportive measures, Antihistaminics, Tylenol prn Relevant Medications cetirizine (ZyrTEC) 10 MG tablet acetaminophen (Tylenol Extra Strength) 500 MG tablet oseltamivir (Tamiflu) 75 MG capsule Stage [address] Berrios here as an ER follow up after being sent for elevated blood pressure, pt not taknig any antihypertensives at the moment. In the ER work up was unremarkable aside from anemia ( not addressed in the ER ) EKG, Cardiac enzymes and chest x-ray were unrevealing. Her BP in the ER was normal per ER summary Of note pt has a Hx of severe with episodes of high bp with sweating and headache. Previous work up included Urine metanephrines that were normal on 04/2022, per PCPs note Per Pcp's note pt supposed to be on hydrochlorothiazide valsartan 100/25 one tab po daily She was also referred to nephrology back in 07/11/23. I was unable to find any notes. Referral placed again Today pt's blood pressure is actually in the lower side 110/84 on NO medications. Etiology of hypertensive bouts ? Further work up will need to be pursued. Since BP normal today no further intervention other than referral back to Nephrology and follow up with PCP Relevant Orders Referral to Nephrology Other specified anemias Pt seen in the ER 2 days ago after she was sent from [facility] with c/o chest pain. Work up in the ER wasnegative for cardiac etiologies. I did noticed patient was significantly anemic with a Hgb : 10 andHematrocrit: 29.7 Etiology: Chronic blood loss , B 12 deficiency others ? Pt tells me that her menstrual cycles are irregular but not necessarily heavy. She does c/o constant BRBPR, evaluated 2 years ago at [facility] and diagnosed with hemorrhoids per her report Plan: Repeat CBC, B12, Folate, Iron studies, Refer back to GI for further evaluation of BRBP given significant anemia. Might need a sigmoidoscopy at a minimum Relevant Orders CBC auto differential Vitamin B12/Folate, Serum Panel Iron And Total Iron Binding Capacity Ferritin Referral to Gynecology Referral to Gastroenterology Other Visit Diagnoses Runny nose Relevant Orders POCT Rapid Covid-19 BinaxNOW (Completed) POCT Rapid Influenza A GROVER ID NOW (Completed) POCT Rapid Influenza B GROVER ID NOW (Completed) BRBPR (bright red blood per rectum) Relevant Orders Referral to Gastroenterology documented in this encounter Miscellaneous Notes * Assessment & Plan Note - Simone Gallego MD - 08/02/2024 9:09 AM EST Associated Problem(s): Influenza A New onset of rhinorrhea, no cough, no sob, no difficulty breathing Testing for Flu POSITIVE Plan: Tamiflu, contact precautions discussed. Supportive measures, Antihistaminics, Tylenol prn * Assessment & Plan Note - Simone Gallego MD - 08/02/2024 9:02 AM EST Associated Problem(s): Stage [address] Berrios here as an ER follow up after being sent for elevated blood pressure, pt not taknig any antihypertensives at the moment. In the ER work up was unremarkable aside from anemia ( not addressed in the ER ) EKG, Cardiac enzymes and chest x-ray were unrevealing. Her BP in the ER was normal per ER summary Of note pt has a Hx of severe with episodes of high bp with sweating and headache. Previous work up included Urine metanephrines that were normal on 04/2022, per PCPs note Per Pcp's note pt supposed to be on hydrochlorothiazide valsartan 100/25 one tab po daily She was also referred to nephrology back in 07/11/23. I was unable to find any notes. Referral placed again Today pt's blood pressure is actually in the lower side 110/84 on NO medications. Etiology of hypertensive bouts ? Further work up will need to be pursued. Since BP normal today no further intervention other than referral back to Nephrology and follow up with PCP * Assessment & Plan Note - Simone Gallego MD - 08/02/2024 8:55 AM EST Associated Problem(s): Other specified anemias Pt seen in the ER 2 days ago after she was sent from [facility] with c/o chest pain. Work up in the ER wasnegative for cardiac etiologies. I did noticed patient was significantly anemic with a Hgb : 10 andHematrocrit: 29.7 Etiology: Chronic blood loss , B 12 deficiency others ? Pt tells me that her menstrual cycles are irregular but not necessarily heavy. She does c/o constant BRBPR, evaluated 2 years ago at [facility] and diagnosed with hemorrhoids per her report Plan: Repeat CBC, B12, Folate, Iron studies, Refer back to GI for further evaluation of BRBP given significant anemia. Might need a sigmoidoscopy at a minimum documented in this encounter Plan of Treatment Scheduled Referrals Name Type Priority Associated Diagnoses Order Schedule Referral to Gynecology Outpatient Referral Routine Anemia due to other cause, not classified Expected: 08/02/2024 (Approximate), Expires: 08/02/2025 Referral to Nephrology Outpatient Referral Routine Stage 2 hypertension Expected: 08/02/2024 (Approximate), Expires: 08/02/2025 Referral to Gastroenterology Outpatient Referral Routine Anemia due to other cause, not classified BRBPR (bright red blood per rectum) Expected: 08/02/2024 (Approximate), Expires: 08/02/2025 documented as of this encounter Procedures Procedure Name Priority Date/Time Associated Diagnosis Comments VITAMIN B12/FOLATE, SERUM PANEL Routine 08/28/2024 12:15 PM EDT Anemia due to other cause, not classified CBC WITH AUTO DIFFERENTIAL Routine 08/28/2024 12:15 PM EDT Anemia due to other cause, not classified IRON AND TOTAL IRON BINDING CAPACITY Routine 08/28/2024 12:15 PM EDT Anemia due to other cause, not classified FERRITIN Routine 08/28/2024 12:15 PM EDT Anemia due to other cause, not classified POCT INFLUENZA B (ID NOW RAPID MOLECULAR) Routine 08/02/2024 9:26 AM EST Runny nose POCT INFLUENZA A (ID NOW RAPID MOLECULAR) Routine 08/02/2024 9:26 AM EST Runny nose POCT RAPID COVID ANTIGEN Routine 08/02/2024 9:25 AM EST Runny nose documented in this encounter Results * (ABNORMAL) Ferritin (08/28/2024 12:15 PM EDT) Pathologist [facility] Ferritin 5(L) 10 - 122 ng/mL [facility] Blood Venous blood specimen / Unknown 08/28/2024 12:15 PM EDT 08/28/2024 12:15 PM EDT Simone Gallego MD LAB BLOOD ORDERABLES Final Result Performing Organization Address City/[facility]/ZIP Co de Phone Number [facility] [address] [place] [phone] * (ABNORMAL) Iron And Total Iron Binding Capacity (08/28/2024 12:15 PM EDT) Pathologist [facility] Iron 53 30 - 160 mcg/dL [facility] Total Iron Binding Capacity 373 228 - 428 mcg/dL [facility] Percent Iron Saturation 14(L) 15 - 50 % [facility] Unsaturated Iron Binding 320 ug/dL [facility] Blood Venous blood specimen / Unknown 08/28/2024 12:15 PM EDT 08/28/2024 12:15 PM EDT Simone Gallego MD LAB BLOOD ORDERABLES Final Result Performing Organization Address City/[facility]/ZIP Co de Phone Number [facility] [address] [place] [address] [phone] * Vitamin B12/Folate, Serum Panel (08/28/2024 12:15 PM EDT) Vitamin B12 238 200 - 900 pg/mL [facility] Comment:NORMAL 200-900 PG/ML INDETERMINATE 160-199 PG/ML DEFICIENT < 160 PG/ML Folate 16.1 > or = 4.0 ng/mL [facility] Comment:Reference Values:> o r = 4.0 ng/mL< 4.0 ng/mL suggests folate deficiency Methotrexate, aminopterin and folinic acid(leucovorin) are chemotherapeutic agents whose molecularstructures are similar to folate; therefore, the Architectfolate assay cannot be used for patients using these drugs. Blood Venous blood specimen / Unknown 08/28/2024 12:15 PM EDT 08/28/2024 12:15 PM EDT us Simone Gallego MD LAB BLOOD ORDERABLES Final Result [facility] [address] [place] [phone] * (ABNORMAL) CBC auto differential (08/28/2024 12:15 PM EDT) White Blood Count 3.9(L) 4.8 - 10.8 X10*3/uL [facility] Red Blood Count 3.29(L) 4.20 - 5.50 X10*6/uL [facility] Hemoglobin 9.7(L) 12.0 - 16.0 g/dl [facility] Hematocrit 31.0(L) 37.0 - 47.0 % [facility] Mean Corpuscular Volume 94.2 80.0 - 98.0 fL [facility] Mean Corpuscular Hemoglobin 29.5 27.0 - 33.0 pg [facility] Mean Corpuscular HGB Conc 31.3 31.0 - 35.0 g/dl [facility] Red Cell Distribution Width 14.1 11.0 - 16.0 % [facility] Platelet Count 396 160 - 400 X10*3/uL [facility] Mean Platelet Volume 9.1(L) 9.4 - 12.3 fL [facility] Neutrophils Percent Auto 47.6 45 - 73 % [facility] Imm Gran Pct Auto 0.3 0.0 - 0.4 % [facility] Lymphocytes Percent Auto 42.2(H) 20 - 40 % [facility] Monocytes Percent Auto 7.4 2 - 11 % [facility] Eosinophils Percent Auto 2.0 0 - 4 % [facility] Basophils Percent Auto 0.5 0 - 2 % [facility] NRBC Pct Auto 0.0 0.0 - 0.2 /100WBC [facility] Neutrophils Absolute Auto 1.9(L) 2.0 - 8.3 x10*3/uL [facility] Imm Gran Abs Auto 0.01 0.00 - 0.03 X10*3/uL [facility] Lymphocytes Absolute Auto 1.7 1.2 - 4.9 X10*3/uL [facility] Monocytes Absolute Auto 0.3 0.1 - 1.2 X10*3/uL [facility] Eosinophils Absolute Auto 0.1 0.0 - 0.4 X10*3/uL [facility] Basophils Absolute Auto 0.0 0.0 - 0.2 X10*3/uL [facility] NRBC Abs Auto 0.000 0.0 - 0.012 X10*3/uL [facility] Blood Venous blood specimen / Unknown 08/28/2024 12:15 PM EDT 08/28/2024 12:15 PM EDT Simone Gallego MD LAB BLOOD ORDERABLES Final Result [facility] [address] [place] [address] [phone] * POCT Rapid Influenza B GROVER ID NOW (08/02/2024 9:26 AM EST) Influenza B Negative Negative, Indeterminate [facility] QC Media Lot # [id number] [facility] Lot# Expiration Date [id number] [facility] Swab 08/02/2024 9:26 AM EST Simone Gallego MD POINT OF CARE TEST EN TER/EDIT ORDERABLES Final Result [facility] [address] [place] [address] [phone] * (ABNORMAL) POCT Rapid Influenza A GROVER ID NOW (08/02/2024 9:26 AM EST) [facility] Influenza A Positive( A) Negative, Indeterminate [facility] QC Media Lot # [id number] [facility] Lot# Expiration Date [id number] [facility] Swab 08/02/2024 9:26 AM EST Simone Gallego MD POINT OF CARE TEST EN TER/EDIT ORDERABLES Final Result [facility] [address] [place] [phone] * POCT Rapid Covid-19 BinaxNOW (08/02/2024 9:25 AM EST) [facility] Rapid COVID Ag Negative QC Media Lot # [id number] Lot# Expiration Date [id number] Swab 08/02/2024 9:25 AM EST us Simone Gallego MD POINT OF CARE TEST EN TER/EDIT ORDERABLES Final Result documented in this encounter Visit Diagnoses Diagnosis Influenza A- Primary Influenza with other respiratory manifestations Stage 2 hypertension Runny nose Other diseases of nasal cavity and sinuses Anemia due to other cause, not classified BRBPR (bright red blood per rectum) Hemorrhage of rectum and anus documented in this encounter Additional Health Concerns Assessment Noted Time PHQ-9 Depression Total Score: 0 12/22/19 23 9:39 AM EDT documented as of this encounter Care Teams Other Sports Coach Or Instructor Relationship Specialty Start Date End Date Keeley Berrios MD [address] [place] [phone] PCP - General Family Medicine 10/14/20 documented as of this encounter
--- OUTSIDE RECORDS SUMMARY | 2024-08-28 15:09 | XMS_ITS | Encounter Summary ---
Author Organization [employer] Address [address] [facility] 7t [place] [address] Care Team Providers Care Weld Inspector Name Role Phone Keeley Berrios MD Primary Care Provider +1- [phone] Reason for Visit * Reason Comments Med Refill Encounter Details Date Type Department Care Team ([facility] st Contact Info) Description 08/02/2024 Refill [facility] [address] [place], [place] [phone] Keeley Berrios MD [address] [place], [place] [phone] Iron deficiency Social History Tobacco Use Types Packs/Day Years [...] AM EDT documented as of this encounter Plan of Treatment Not on file documented as of this encounter Visit Diagnoses Diagnosis Iron deficiency Disorders of iron metabolism documented in this encounter Additional Health Concerns Assessment Noted Time PHQ-9 Depression Total Score: 0 12/22/19 23 9:39 AM EDT documented as of this encounter Care Teams Weld Inspector Relationship Specialty Start Date End Date Keeley Berrios MD [address] [place] [phone] PCP - General Family Medicine 10/14/20 documented as of this encounter
--- OUTSIDE RECORDS SUMMARY | 2024-08-28 15:10 | XMS_ITS | Encounter Summary ---
Author Organization [facility] Address [address] [facility] 7[address] [place] [address] Care Team Providers Care Scientific Director Name Role Phone Keeley Berrios MD Primary Care Provider +1- [phone] Reason for Visit * Reason Onset Date Comments Nurse Triage 07/31/2024 Encounter Details Date Type Department Care Team (Late st Contact Info) Description 07/31/2024 Telephone [facility] [address] [place] [address] Blanca Olivarez RN Nurse Triage Social History [...] Olivarez RN - 07/31/2024 1:03 PM EST rental manager This RN was called into patient room by [facility] for patient report of chest pain and SOB. Upon initial assessment patient in distress, diaphoretic. Initial BP by [facility]IN[facility] 155/111. Re-check 150/98. EKG obtained. Dr. Berrios in patient room at this time. Handed to Dr. Berrios for interpretation. Of note, patient reports she recently had long flight from [facility] Sunday into Sunday. On this flight [...] Dr. Berrios Patient to be transported to [facility] ED Blanca Olivarez RN documented in this encounter Plan of Treatment Not on file documented as of this encounter Visit Diagnoses Not on filedocumented in this encounter Additional Health Concerns Assessment Noted Time PHQ-9 Depression Total Score: 0 12/22/19 23 9:39 AM EDT documented as of this encounter Care Teams Scientific Director Relationship Specialty Start Date End Date Keeley Berrios MD [address] [place] [phone] PCP - General Family Medicine 10/14/20 documented as of this encounter
--- OUTSIDE RECORDS SUMMARY | 2024-08-28 15:10 | XMS_ITS | Encounter Summary ---
Author Organization [employer] [facility] Address [address] [facility] [address]t [place] [address] Care Team Providers Care Senior Construction Manager Name Role Phone Keeley Berrios MD Primary Care Provider +1- [phone] Reason for Visit * Reason Onset Date Comments Nurse Triage 08/01/2024 Encounter Details Date Type Department Care Team (Late st Contact Info) Description 08/01/2024 Telephone [facility] [address] [place], [place] [phone] Keeley Berrios MD [address] [place], [place] [phone] Nurse Triage Social History Tobacco Use Types [...] encounter Miscellaneous Notes * Telephone Encounter - Jordyn Monroy LPN - 08/01/2024 2:13 PM EST Triage call returned to patient who reports ongoing headache. Was seen and transported to [facility] yesterday with HTN and tachycardia with chest pain. ( Note requested) patient reports that no medications ordered and no changes prior to discharge. Last BP in 'ED 139/90. Patient has taken 1 Tylenol this morning and another at around 1pm. Headache is frontal and extends up into scalp. Tylenol with slight improvement only. No numbness of face or mouth no blurred vision no vomiting or chest pain. Patient has NOT been on Hyzaar 100-25mg for some time as she felt ok and stopped taking it. Has none inhome at time of call. 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 ASK/[facility] tomorrow morning with at 9am.Reviewed with patient home care recommendations, reasons to call back and symptoms that require immediate evaluation in UC or ER. Patient verbalized understanding and agrees. Protocol Used: Headache (Adult) Protocol-Based Disposition: See in Office or Video Visit Today Override (Final) Disposition: See in Office or Video Visit Today or Tomorrow Override Reason: Caller refused suggested disposition Override Notes: Appt for 9am tomorrow in [facility] agreed to by patient. Video visit not offered Positive Triage Question: * Patient wants to be seen * All higher-acuity triage questions were negative Care Advice Discussed: * Reasons To Call Back - You become worse * Telephone Encounter - Jordyn Monroy LPN - 08/01/2024 2:11 PM EST Please obtain [facility] note from yesterday 07/31/24. * Telephone Encounter - Kelsey Boss - 08/01/2024 1:28 PM EST Patient calling to report ED visit on : Date: 07/31 Hospital: [facility] Seen for: Hypertension, Tachycardia Symptomatic Yes headache *if yes message should go to Triage Patient advised will forward to team nurse for follow up [phone] documented in this encounter Plan of Treatment Not on file documented as of this encounter Visit Diagnoses Not on filedocumented in this encounter Additional Health Concerns Assessment Noted Time PHQ-9 Depression Total Score: 0 12/22/19 23 9:39 AM EDT documented as of this encounter Care Teams Senior Construction Manager Relationship Specialty Start Date End Date Keeley Berrios MD [address] [place] [phone] PCP - General Family Medicine 10/14/20 documented as of this encounter
--- OUTSIDE RECORDS SUMMARY | 2024-08-28 15:10 | XMS_ITS | Encounter Summary ---
Author Organization [facility] Address [address] [place] [address] [address] [address] Care Team Providers Care Medical Reimbursement Manager Name Role Phone Keeley Berrios MD Primary Care Provider +1- [phone] Reason for Visit * Reason Onset Date Comments triage 07/13/2022 Encounter Details Date Type Department Care Team (Late st Contact Info) Description 07/13/2022 Telephone [facility] [address] [place] [address] Keeley Berrios MD [address] [place] [address] triage Social History Tobacco Use Types Packs/Day [...] on filedocumented in this encounter Care Teams Medical Reimbursement Manager Relationship Specialty Start Date End Date Keeley Berrios MD [address] [place] [address] PCP - General Family Medicine 10/14/20 documented as of this encounter
--- OUTSIDE RECORDS SUMMARY | 2024-08-28 15:10 | XMS_ITS | Clinical Summary ---
Author Organization [employer] Address [address] [place] [address] 7t [place] [address] Care Team Providers Care Collar Stay Fuser Tender Name Role Phone Keeley Berrios MD Primary Care Provider +1- [phone] Allergies Active Allergy Reactions Criticality Noted Date Comments Prochlorperazine 07/11/2023 Other reaction(s): sweating, dizziness Medications Blood Pressure Monitor kitIndications: Stage 2 hypertension Check blood pressure twice a wee. Dx hypertension 1 kit 024 Active cholecalciferol (Vitamin D3) 1.25 MG (09472 UT) tabletIndicatio ns:Vitamin D deficiency Take 1 tablet (50,000 Units) by mouth 1 (one) time per week. 12 tablet 024 Active ferrous sulfate 325 (65 Fe) MG EC tabletIndicatio ns:Iron deficiency TAKE 1 TABLET BY MOUTH EVERY OTHER DAY ..DO NOT CRUSH, CHEW, SPLIT 30 tablet 3 024 Active cholecalciferol (Vitamin D-3) 25 MCG (1000 UT) tabletIndicatio ns:Vitamin D Deficiency Take 1 tablet (25 mcg) by mouth in the morning. 90 tablet 3 024 2024 Active cholecalciferol (Vitamin D-3) 25 MCG (1000 UT) tabletIndicatio ns:Vitamin D Deficiency Take 1 tablet (25 mcg) by mouth in the morning. 90 tablet 3 024 2024 Active cetirizine (ZyrTEC) 10 MG tabletIndicatio ns:Influenza A Take 1 tablet (10 mg) by mouth Once per day. 30 tablet 025 Active acetaminophen (Tylenol Extra Strength) 500 MG tabletIndicatio ns:Influenza A Take 1 tablet (500 mg) by mouth every 8 (eight) hours if needed for mild pain. 30 tablet 025 Active Senna-Time 8.6 MG tabletIndicatio ns:Iron deficiency TAKE 1 TABLET (8.6 MG) BY MOUTH AT BEDTIME. 90 tablet 1 025 Active senna (Senokot) 8.6 MG tabletIndicatio ns:Iron deficiency Take 1 tablet (8.6 mg) by mouth at bedtime. 120 tablet 024 2024 Discontinued losartan-hydroC HLOROthiazide (Hyzaar) 100-25 MG tabletIndicatio ns:Stage 2 hypertension Take 1 tablet by mouth in the morning. 30 tablet 11 024 2024 Discontinued(N on-compliance) oseltamivir (Tamiflu) 75 MG capsuleIndicati ons:Influenza A Take 1 capsule (75 mg) by mouth 2 times daily for 5 days. 10 capsule 025 2024 Active Problems Problem Noted Date Diagnosed Date Other specified anemias 08/02/2024 Assessment & Plan (08/02/2024 9:30 AM EST): Pt seen in the ER 2 days ago after she was sent from [facility] with c/o chest pain. Work up in the ER was negative for cardiac etiologies. I did noticed patient was significantly anemic with a Hgb : 10 and Hematrocrit: 29.7 Etiology: Chronic blood loss , B 12 deficiency others ? Pt tells me that her menstrual cycles are irregular but not necessarily heavy. She does c/o constant BRBPR, [place] [facility] with [place]oids per her report Plan: Repeat CBC, B12, Folate, Iron studies, Refer back to GI for further evaluation of BRBP given significant anemia. Might need a sigmoidoscopy at a minimum Influenza A 08/02/2024 Assessment & Plan (08/02/2024 9:28 AM EST): New onset of rhinorrhea, no cough, no sob, no difficulty breathing Testing for Flu POSITIVE Plan: Tamiflu, contact precautions discussed. Supportive measures, Antihistaminics, Tylenol prn Chest pain 07/31/2024 Dyslipidemia 09/27/2023 Overview (09/27/2023): [...] due after 01/27/2024 -eye care facilitated by [facility], referral done 12/21/2022 -dental home [facility]. -Health care proxy given 09/27/2023 Assessment & Plan (09/27/2023 10:48 AM EDT): -next physical exam due after 01/27/2024 -eye care facilitated by [facility], referral done 12/21/2022 -dental home is [facility]. -Health care proxy given 09/27/2023 Assessment & Plan (12/21/2022 10:08 AM EDT): -next physical exam due after 12/22/2023 -eye care facilitated by [facility], referral done 12/21/2022 -dental home [facility]. Acquired hypothyroidism 10/11/2022 Overview (09/27/2023): TSH wass [...] home on enalapril 5mg daily prescribed by [employer] discontinue when she was in hospital in [place] 08/2021 with subsequent high Bps at home as high as 190 -continue hydrochlorothiazide valsartan 100/25 one tab po daily -referral to nephrology placed 07/11/23 Assessment & Plan (08/02/2024 9:19 AM EST): Pt of Dr. Berrios here as an [...] to Nephrology and follow up with PCP Assessment & Plan (09/27/2023 10:32 AM EDT): Severe with episodes of high bp with sweating and headache. -Urine metanephrine were normal on 04/2022. -BP well controlled at home on enalapril 5mg daily prescribed by [employer] discontinue when she was in hospital in [place] 08/2021 with subsequent high Bps at home as high as 190 -continue hydrochlorothiazide valsartan 100/25 one tab po daily -referral to nephrology placed 07/11/23 Assessment & Plan (12/21/2022 9:12 AM EDT): Severe with episodes of high bp with sweating and headache. Need to r/o secondary causes of HTN Restart enalapril 5mg daily prescribed by [employer] -Urine metanephrine were normal on 04/2022. -BP well controlled at home. Depression 09/10/2013 Vitamin D deficiency 09/10/2013 Overview (09/27/2023): Lab Results Component Value Date [id number] 5.7 (L) 07/16/2023 -Vit D was 12 on 02/2022. -Vit D 50,000 started 03/08/2022 -restart weekly vit D for 2 months and then switch to daily Assessment & Plan (09/27/2023 11:01 AM EDT): Lab Results Component Value Date [id number] 5.7 (L) 07/16/2023 Assessment & Plan (12/21/2022 9:13 AM EDT): Vit D was 12 on 02/2022. Vit D 50,000 started 03/08/2022. 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 -Will trial wrist splints and if no improvement advised to call for occupational therapy referral. 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 -Will trial wrist splints and if no [...] precaution discussed. Nausea and vomiting 10/12/2022 12/19/19 Overview (10/12/2022): Resolved. Assessment & Plan (10/12/2022 1:53 PM EDT): Resolved. Prehypertension 10/11/2022 10/12/2022 Encounters Date Type Department Care Team Description 08/02/2024 9:00 AM EST [facility] [address] [address] Simone Sandoval MD Influenza A (Primary Dx); Stage 2 hypertension; Runny nose; Anemia due to other cause, not classified; BRBPR (bright red blood per rectum) 08/02/2024 Refill [facility] [address] [place] [address] [phone] Keeley Berrios MD Iron deficiency 08/01/[address] [address] Keeley Berrios MD Nurse Triage 07/31/2024 1:00 PM EST Office Visit [facility] [address] [address] Keeley Berrios MD Chest pain, unspecified type (Primary Dx); SOB (shortness of breath) 07/31/2024 Telephone [facility] [address] [place] [address] Blanca Olivarez, RN Nurse Triage 07/31/2024 Telephone [facility] [address] [place] [address] Keeley Berrios MD Nurse Triage from Last [...] Mass Index 23.85 08/02/2024 9:01 AM EST Plan of Treatment Health Maintenance Due Date Last Done Comments Alcohol/Substance Use Screening 1998 Family Planning (PISQ) 2001 Depression Screening 12/22/2023 12/21/2022, 12/22/19 23 SDOH Screening 12/22/2023 12/21/2022 COVID-19 Vaccine ( [...] Procedure Name Priority Date/Time Associated Diagnosis Comments FERRITIN Routine 08/28/2024 12:15 PM EDT Anemia due to other cause, not classified IRON AND TOTAL IRON BINDING CAPACITY Routine 08/28/2024 12:15 PM EDT Anemia due to other cause, not classified VITAMIN B12/FOLATE, SERUM PANEL Routine 08/28/2024 12:15 [...] Routine 08/02/2024 9:25 AM EST Runny nose ECG 12-LEAD Routine 07/31/2024 1:09 PM EST [...] Recently Relevant to Health Maintenance Results * Vitamin B12/Folate, Serum Panel (08/28/2024 12:15 PM EDT) Vitamin B12 238 200 - 900 pg/mL [facility] Comment:NORMAL 200-900 PG/ML INDETERMINATE 160-199 PG/ML DEFICIENT < 160 PG/ML Folate 16.1 > or = 4.0 ng/mL [facility] Comment:Reference Values:> o r = 4.0 ng/mL< 4.0 ng/mL suggests folate deficiency Methotrexate, aminopterin and folinic acid(leucovorin) are chemotherapeutic agents whose molecularstructures are similar to folate; therefore, the Architectfolate assay cannot be used for patients using these drugs. Blood Venous blood specimen / Unknown 08/28/2024 12:15 PM EDT 08/28/2024 12:15 PM EDT us Simone Gallego MD LAB BLOOD ORDERABLES Final Result [facility] [address] [place] [phone] * (ABNORMAL) CBC auto differential (08/28/2024 12:15 PM EDT) White Blood Count 3.9(L) 4.8 - 10.8 X10*3/uL [facility] Red Blood Count 3.29(L) 4.20 - 5.50 X10*6/uL [facility] Hemoglobin 9.7(L) 12.0 - 16.0 g/dl [facility] Hematocrit 31.0(L) 37.0 - 47.0 % [facility] Mean Corpuscular Volume 94.2 80.0 - 98.0 fL [facility] Mean Corpuscular Hemoglobin 29.5 27.0 - 33.0 pg [facility] Mean Corpuscular HGB Conc 31.3 31.0 - 35.0 g/dl [facility] Red Cell Distribution Width 14.1 11.0 - 16.0 % [facility] Platelet Count 396 160 - 400 X10*3/uL [facility] Mean Platelet Volume 9.1(L) 9.4 - 12.3 fL [facility] Neutrophils Percent Auto 47.6 45 - 73 % [facility] Imm Gran Pct Auto 0.3 0.0 - 0.4 % [facility] Lymphocytes Percent Auto 42.2(H) 20 - 40 % [facility] Monocytes Percent Auto 7.4 2 - 11 % [facility] Eosinophils Percent Auto 2.0 0 - 4 % [facility] Basophils Percent Auto 0.5 0 - 2 % [facility] NRBC Pct Auto 0.0 0.0 - 0.2 /100WBC [facility] Neutrophils Absolute Auto 1.9(L) 2.0 - 8.3 x10*3/uL [facility] Imm Gran Abs Auto 0.01 0.00 - 0.03 X10*3/uL [facility] Lymphocytes Absolute Auto 1.7 1.2 - 4.9 X10*3/uL [facility] Monocytes Absolute Auto 0.3 0.1 - 1.2 X10*3/uL [facility] Eosinophils Absolute Auto 0.1 0.0 - 0.4 X10*3/uL [facility] Basophils Absolute Auto 0.0 0.0 - 0.2 X10*3/uL [facility] NRBC Abs Auto 0.000 0.0 - 0.012 X10*3/uL [facility] Blood Venous blood specimen / Unknown 08/28/2024 12:15 PM EDT 08/28/2024 12:15 PM EDT Simone Gallego MD LAB BLOOD ORDERABLES Final Result Performing Organization Address City/[facility]/ZIP Co de Phone Number [facility] [address] [place] [phone] * (ABNORMAL) Iron And Total Iron Binding Capacity (08/28/2024 12:15 PM EDT) Iron 53 30 - 160 mcg/dL [facility] Total Iron Binding Capacity 373 228 - 428 mcg/dL [facility] Percent Iron Saturation 14(L) 15 - 50 % [facility] Unsaturated Iron Binding 320 ug/dL [facility] Blood Venous blood specimen / Unknown 08/28/2024 12:15 PM EDT 08/28/2024 12:15 PM EDT Simone Gallego MD LAB BLOOD ORDERABLES Final Result Performing Organization Address [facility] Co de Phone Number [facility] [address] [place] [phone] * (ABNORMAL) Ferritin (08/28/2024 12:15 PM EDT) Ferritin 5(L) 10 - 122 ng/mL [facility] Blood Venous blood specimen / Unknown 08/28/2024 12:15 PM EDT 08/28/2024 12:15 PM EDT us Simone Gallego MD LAB BLOOD ORDERABLES Final Result Performing Organization Address City/[facility]/ZIP Co de Phone Number [facility] [address] [place] [phone] * POCT Rapid Influenza B [place] ID NOW (08/02/2024 9:26 AM EST) Influenza B Negative Negative, Indeterminate [facility] QC Media Lot # [id number] [facility] Lot# Expiration Date , [facility] Swab 08/02/2024 9:26 AM EST Simone Gallego MD POINT OF CARE TEST EN TER/EDIT ORDERABLES Final Result Performing Organization Address City/[facility]/ZIP Co de Phone Number [facility] [address] [place] [phone] * (ABNORMAL) POCT Rapid Influenza A [place] ID NOW (08/02/2024 9:26 AM EST) Influenza A Positive( A) Negative, Indeterminate [facility] QC Media Lot # [id number] [facility] Lot# Expiration Date [facility] Swab 08/02/2024 9:26 AM EST Simone Gallego MD POINT OF CARE TEST EN TER/EDIT ORDERABLES Final Result Performing Organization Address City/[facility]/ZIP Co de Phone Number [facility] [address] [place] [phone] * POCT Rapid Covid-19 BinaxNOW (08/02/2024 9:25 AM EST) Rapid COVID Ag Negative QC Media Lot # [id number] Lot# Expiration Date , Swab 08/02/2024 9:25 AM EST Simone Gallego MD POINT OF CARE TEST EN TER/EDIT ORDERABLES Final Result * ECG 12 lead (07/31/2024 1:09 PM EST) Narrative Keeley Berrios MD - 07/31/2024 1:09 PM EST 103 bpm, RSR in V1-V2 consider ischemia, LV overload. Keeley Berrios MD ECG ORDERABLES Final Resu lt * Lipid Panel, Standard (07/16/2023 10:02 AM EST) Triglycerides 55 <150 mg/dL [facility] Comment:Desirable Triglyceri de: less than 150 mg/dLBorderline High Triglyceride 150-199 mg/dLHigh Triglyceride: 200-499 mg/dLVery High Triglyceride: greater than or equal to 5OO mg/dL Cholesterol 164 <200 mg/dL [facility] Comment:Desirable Cholestero l: less than 200 mg/dLBorderline High Cholesterol: 200-239 mg/dLHigh Cholesterol: greater than 239 mg/dL LDL Cholesterol Calculated 92 <100 mg/dL [facility] Comment:Desirable LDL: less than 100 mg/dLNear Optimal/Above Optimal LDL: 110- 129 mg/dLBorderline High LDL: 130-159 mg/dLHigh LDL: 160-189 mg/dLVery High LDL: greater than or equal to 190 mg/dL HDL Cholesterol 61 >40 mg/dL [facility] Comment:Desirable HDL: great er than 40 mg/dL Note: This HDL assay may give artificially low results in patients with liver disease. Blood Venous blood specimen / Unknown 07/16/2023 10:02 AM EST 07/16/2023 11:14 AM EST Keeley Berrios MD LAB BLOOD ORDERABLES Final Result [facility] [address] [place] [address] [phone] * HEPATITIS C AB W/REFL TO HCV RNA, QN, PCR (03/03/2022 10:43 AM EDT) HEPATITIS C ANTIBODY NON-REACT WARNER NON-REACT WARNER [facility] INDEX 0.12 <1.00 [facility] Comment: ?? HCV antibody was non-reactive. There is no laboratory ?? evidence of HCV infection. ?? In most cases, no further action is required. However, if recent HCV exposure is suspected, a test for HCV RNA (test code 25467) is suggested. ?? For additional information please refer to http://[employer].MedAware/faq/YZJ87m4 (This link is being provided for informational/ educational purposes only.) ?? 03/03/2022 10:4 3 AM EDT Keeley Berrios MD HISTORICAL/NON ORDERABLE L ABS Final Result Performing Organization Address [facility] de Phone Number [facility] [address] [place] [address], * HIV 1/2 ANTIGEN/ANTIBODY,FOURTH GENERATION W/RFL (03/03/2022 10:43 AM EDT) HIV-1/2 ANTIGEN AND ANTIBODIES, 4TH GENERATION W/ REFLEX NON-REACT WARNER NON-REACT WARNER [facility] Comment: HIV-1 antigen and HIV-1/HIV-2 [...] ? For additional information please refer to http://[employer].MedAware/faq/HDB180 (This link is being provided for informational/ educational purposes only.) ? The performance of this assay has not been clinically validated in patients less than 2 years old. ?? 03/03/2022 10:4 3 AM EDT Keeley Berrios MD LAB BLOOD ORDERABLES Final Result Performing Organization Address [facility] Co de Phone Number [facility] [address] [place], [place] [address] * Pap Smear (09/08/2020 12:00 AM EDT) Swab us Historical Provider LAB CYTOLOGY ORDERABLES F inal Result IMAGING from Last 3 Months or Most Recently Relevant to Health Maintenance Insurance Jaco Solarsi C3 Care Teams Collar Stay Fuser Tender Relationship Specialty Start Date End Date [place], [place] Keeley [address] [place] [phone] PCP - General Family Medicine 10/14/20
--- OUTSIDE RECORDS SUMMARY | 2024-08-28 15:10 | XMS_ITS | Encounter Summary ---
Author Organization [facility] Address [address]t [place] [address] Care Team Providers Care Building Energy Retrofit Technician Name Role Phone Keeley Berrios MD Primary Care Provider +1- [phone] Reason for Visit * Reason Onset Date Comments Nurse Triage 07/31/2024 Encounter Details Date Type Department Care Team (Late st Contact Info) Description 07/31/2024 Telephone [facility] [address] [place], [place] [phone] Keeley Berrios MD [address] [place], [place] [phone] Nurse Triage Social History Tobacco Use Types [...] t he electric, gas, oil or water [employer] threatened to shut off services in your [...] Pt advised of disposition, agrees to seek [facility] for exam as no sick on site availability on teams at time of call. Reviewed [facility] operating hours and that wait times [...] become worse Geo Conrado routed conversation to [facility] T[facility] Nurse1 hour ago (8:37 AM) Stephanie Bergeron [facility] Clinical Support (supporting Keeley Berrios MD)12 [...] documented as of this encounter Care Teams Building Energy Retrofit Technician Relationship Specialty Start Date End Date Keeley Berrios MD [address] [place] [address] PCP - General Family Medicine 10/14/20 documented as of this encounter
--- OUTSIDE RECORDS SUMMARY | 2024-08-28 15:10 | XMS_ITS | Encounter Summary ---
Author Organization [employer] Address [address] [facility] 7t [place] [address] Care Team Providers Care Electronics Test Engineer Name Role Phone Keeley Berrios MD Primary Care Provider +1- [phone] Reason for Visit * Reason Comments Chest Pain Shortness of Breath Encounter Details Date Type Department Care Team ([facility] st Contact Info) Description 07/31/2024 1:00 PM EST Office Visit [facility] [address] [place], [place] [phone] Keeley Berrios MD [address] [place], [place] [phone] Chest pain, unspecified type (Primary Dx); SOB [...] documented as of this encounter Care Teams Electronics Test Engineer Relationship Specialty Start Date End Date Keeley Berrios MD [address] [place] [phone] PCP - General Family Medicine 10/14/20 documented as of this encounter
--- OUTSIDE RECORDS SUMMARY | 2024-08-28 15:10 | XMS_ITS | Clinical Summary ---
Author Organization [facility] Address [address] [place] [phone] Phone Care Team Providers Care Belt Picker Name Role Phone Simone Bradley MD Primary Care Provider Unav ailable Social History Tobacco Use Types Packs/Day Years Used Date Smoking Tobacco: Never Assessed Comments Unknown Sex and Gender Information Value Date Recorded Sex Assigned at Not on file Legal Sex Female 10:28 AM EDT Gender Identity Not on file Sexual Orientation Not on file Plan of Treatment Upcoming Encounters Date Type Department Care Team ([facility] st Contact Info) Description 09/24/2024 10:20 AM EDT Office Visit [facility] [address] [phone] Vick Olivo MD [address] [phone] Health Maintenance Due Date Last Done Comments Pneumococcal Vaccine: Pediat rics (0 to 5 Years) and At-Risk Patients (6 to 64 Years) (1 of 2 - PCV) 02/04/1992 Hepatitis B Vaccine (1 of 3 - 19+ 3-dose series) 2005 12/21/2022, 03/02/2022, 04/23/2014 Influenza Vaccine (#1) 2024 [place] Care Teams Belt Picker Relationship Specialty Start Date End Date Simone Bradley MD [address] [place] [phone] PCP - General Internal Medicine 08/12/24
--- OUTSIDE RECORDS SUMMARY | 2024-08-28 15:10 | XMS_ITS | Encounter Summary ---
Author Organization [facility] Address [address] [facility] 7t [place] [address] Care Team Providers Care Jacquard Plate Maker Name Role Phone Keeley Berrios MD Primary Care Provider +1- [phone] Encounter Details Date Type Department Care Team (Late st Contact Info) Description 07/25/2022 Abstract [facility] [address] [place] [address] Keeley Berrios MD [address] [place], [place] [phone] Social History Tobacco Use Types Packs/Day Years [...] on filedocumented in this encounter Care Teams Jacquard Plate Maker Relationship Specialty Start Date End Date Keeley Berrios MD [address] [place] [phone] PCP - General Family Medicine 10/14/20 documented as of this encounter
--- OUTSIDE RECORDS SUMMARY | 2024-08-28 15:10 | XMS_ITS | Clinical Summary ---
Author Organization [facility] Address [address] [place] [address] Care Team Providers Care Remedial Masseur Name Role Phone Unavailable Primary Care Provider [...] (2 - Td or Tdap) 09/11/2023 014 [id number] (3 - season) 2024 021, 02/02/2021 Imm-Influenza (#1) 2024 06/19/2013 Alcohol and Drug Screen 06/18/2024 Depression Annual Screen 06/18/2024 Cervical Ablation/Cold-Knife Conization Discontinued Cervical Cryotherapy Discontinued Colposcopy Discontinued Endometrial Biopsy Discontinued Excision/Leep Discontinued HPV Genotyping Discontinued Vaginal Pap Discontinued Vulvoscopy Discontinued Insurance [address] [employer]
== END 2024-08-28 11:45 | disposition home or self-care (01) ==
LOC: HO.LAB 11:44
PROVIDERS: PCP Family Medicine; Visit Provider Internal Medicine
DX: D64.89 Other specified anemias (principal)
CPT/HCPCS: 36415; 82607; 82728; 82746; 83540; 85025

== ENCOUNTER → 2024-10-17 11:42 | Outpatient (BNV) | payer MEDICAID, SELFPAY | PROVIDERS: PCP Family Medicine; Referring Provider Family Medicine; Visit Provider Internal Medicine | DX: D64.9 Anemia, unspecified (principal) | CPT/HCPCS: 99204 ==